=== PATIENT | male | born 1980 | race Caucasian/White ===

== ENCOUNTER 2019-02-17 22:10 | Inpatient (IN) | payer OTHER ==
[2019-02-17] MEDS ORDERED: PNEUMONIA PROTOCOL UTILIZED 1 EACH MISC PO PRN (22:39)
[2019-02-17] MEDS ORDERED: AZITHROMYCIN 500 MG in SODIUM CHLORIDE 0.9% 250 ML IVPB STA (22:39)
[2019-02-17] MEDS ORDERED: IPRATROPIUM-ALBUTEROL 3 ML NEB INHALATION STA ×2 (22:39→23:58)
[2019-02-17] MEDS ORDERED: SODIUM CHLORIDE 0.9% 1,000 ML IV STA ×2 (22:39)
--- NOTE | 2019-02-17 22:47 | ED ---
Alcohol HPI - General Chief Complaint: Shortness of Breath Stated Complaint: Altered Mental Status Time Seen by Provider: 02/17/19 22:14 Source: EMS, RN notes reviewed, old records reviewed Mode of arrival: EMS Limitations: altered mental status - History of Present Illness Initial Comments: This is a 30-year-old male the ER for evaluation in the hospital for pneumonia. Patient has severe alcohol takes oxygen, poor historian, except in transfer from [facility]. Patient accepted for alcohol intoxication. Poor historian secondary intoxication, history obtained from EMS and patients chart MD Complaint: alcohol intoxication, alcohol dependence Last Drink: unknown -: hour(s) Previous Visits for Alcohol Intoxication?: Yes Recent Trauma: Yes Treatments Prior to Arrival: none Chronic Alcohol Use: Yes - Related Data Home Medications Medication Instructions Recorded Confirmed Diazepam [Valium] 10 mg PO BID PRN 10/21/15 03/13/16 oxyCODONE HCL [oxyCODONE HCL (IR)] 30 mg PO Q6HR PRN 10/21/15 03/13/16 traMADol HCL [Ultram] 50 mg PO Q6HR PRN 10/21/15 03/13/16 Previous Rx's Medication Instructions Recorded Hydrocodone/Acetaminophen [[place] 1 each PO Q6HR PRN #20 tablet 10/21/15 10-325 Tablet] Divalproex [Depakote] 500 mg PO BID #20 tablet. 03/13/16 Hydrocodone/Acetaminophen [[place] 1 each PO Q6HR PRN #10 tab 03/13/16 5-325] Lisinopril 40 mg PO DAILY #20 tablet 03/13/16 levETIRAcetam [Keppra] 500 mg PO Q12HR #20 tab 03/13/16 Allergies Allergy/AdvReac Type Severity Reaction Status Date / Time codeine Allergy Unknown Verified 02/17/19 22:19 ketorolac tromethamine Allergy Itching Verified 02/17/19 22:19 [From Toradol] Review of Systems ROS Statement: Those systems with pertinent positive or pertinent negative responses have been documented in the HPI. ROS Other: All systems not noted in ROS Statement are negative. Past Medical History Past Medical History: Fibromyalgia, Hypertension, Seizure Disorder Additional Past Medical History / Comment(s): lupus, alcohol abuse History of Any Multi-Drug Resistant Organisms: None Reported Past Surgical History: No Surgical Hx Reported Past Psychological History: No Psychological Hx Reported Smoking Status: Current every day smoker Past Alcohol Use History: Abuse Past Drug Use History: None Reported General Exam Limitations: altered mental status General appearance: alert, appears intoxicated, lethargic Head exam: Present: atraumatic, normocephalic, normal inspection Eye exam: Present: normal appearance, PERRL, EOMI. Absent: scleral icterus, conjunctival injection, periorbital swelling ENT exam: Present: normal exam, mucous membranes moist Neck exam: Present: normal inspection. Absent: tenderness, meningismus, lymphadenopathy Respiratory exam: Present: decreased breath sounds, prolonged expiratory. Absent: respiratory distress, wheezes, rales, rhonchi, stridor Cardiovascular Exam: Present: normal rhythm, tachycardia, normal heart sounds. Absent: systolic murmur, diastolic murmur, rubs, gallop, clicks GI/Abdominal exam: Present: soft, normal bowel sounds. Absent: distended, tenderness, guarding, rebound, rigid Extremities exam: Present: normal inspection, full ROM, normal capillary refill. Absent: tenderness, pedal edema, joint swelling, calf tenderness Back exam: Present: normal inspection Neurological exam: Present: alert, oriented X3, CN II-XII intact Psychiatric exam: Present: normal affect, normal mood Skin exam: Present: warm, dry, intact, normal color. Absent: rash Course Vital Signs 02/17/19 22:13 Temperature 99.8 F H Pulse Rate 131 H Respiratory 14 Rate Blood Pressure 126/92 O2 Sat by Pulse 92 L Oximetry - Reevaluation(s) Reevaluation #1: 02/17/19 22:45 Record and transfer paperwork are reviewed Medical Decision Making - Medical Decision Making 38 male the ER for evaluation severe alcohol intoxication alcohol 520, patient also with pneumonia. Will admit for IV antibiotics, monitoring of electrolytes. - Radiology Data Radiology results: report reviewed (Chest x-ray reviewed showing positice pneumonia) Disposition Clinical Impression: Community acquired pneumonia, Alcohol intoxication, Hepatic encephalopathy Disposition: ADMITTED IP TO THIS HOSP Condition: Fair Is patient prescribed a controlled substance at d/c from ED?: No Referrals: None,Stated [Primary Care Provider] - 1-2 days
[2019-02-17] MEDS ORDERED: THIAMINE 100 MG/ML 2 ML VIAL IM STA (22:48)
[2019-02-17 23:13] LABS: Basophils % (A) 0 %; Eosinophils % (A) 0 %; HCT 36.1 % (39.0-53.0); HGB 11.7 gm/dL (13.0-17.5); Lymphocytes # (A) 0.6 k/uL (1.0-4.8); Lymphocytes % (A) 8 %; MCH 32.9 pg (25.0-35.0); MCHC 32.3 g/dL (31.0-37.0); MCV 101.8 fL (80.0-100.0); Macrocytosis Slight; Mean Platelet Volume 9.3; Monocytes # (A) 0.4 k/uL (0-1.0); Monocytes % (A) 5 %; Neutrophils # (A) 6.1 k/uL (1.3-7.7); Neutrophils % (A) 86 %; RBC 3.55 m/uL (4.30-5.90); RDW 15.4 % (11.5-15.5); WBC 7.2 k/uL (3.8-10.6)
[2019-02-17 23:21] LABS: INR 0.9 (<1.2); Prothrombin Time 9.7 sec (9.0-12.0)
[2019-02-17 23:27] LABS: Appearance,Urine Clear (Clear); Bilirubin,Urine 1+ (Negative); Blood,Urine Large (Negative); Color,Urine Yellow; Glucose,Urine (UA) Negative (Negative); Leukocyte Esterase,Urine Negative (Negative); Mucus,Urine Rare /hpf; Nitrite,Urine Negative (Negative); Protein,Urine 2+ (Negative); RBC,Urine 80 /hpf (0-5); Specific Gravity,Urine 1.018 (1.001-1.035)
[2019-02-17 23:30] LABS: Amphetamine Screen,Urine Not Detected (NotDetected); Barbiturate Screen,Urine Not Detected (NotDetected); Benzodiazepines Screen,Urine Not Detected (NotDetected); Cocaine Screen,Urine Not Detected (NotDetected); Ketones,Urine 3+ (Negative); Methadone Screen, Urine Not Detected (NotDetected); Opiate Screen,Urine Not Detected (NotDetected); Oxycodone Screen, Urine Not Detected (NotDetected); Phencyclidine Screen,Urine Not Detected (NotDetected); Tricyclic Antidepressant,Urine Not Detected (NotDetected); Urn Cannabinoid Scrn Not Detected (NotDetected)
[2019-02-17 23:31] LABS: Albumin 3.7 g/dL (3.5-5.0); Anion Gap 29 mmol/L; Blood Urea Nitrogen 11 mg/dL (9-20); Calcium 6.8 mg/dL (8.4-10.2); Carbon Dioxide 13 mmol/L (22-30); Chloride 109 mmol/L (98-107); Glucose 83 mg/dL (74-99); Lipase 676 U/L (23-300); Sodium 151 mmol/L (137-145); Total Bilirubin 4.3 mg/dL (0.2-1.3); Total Protein 6.2 g/dL (6.3-8.2)
[2019-02-17 23:41] LABS: AST 353 U/L (17-59); Alcohol 370 mg/dL; Magnesium 1.8 mg/dL (1.6-2.3); Phosphorus 3.9 mg/dL (2.5-4.5); Potassium 3.3 mmol/L (3.5-5.1)
[2019-02-17 23:42] LABS: ALT 119 U/L (21-72); Alkaline Phosphatase 145 U/L (38-126)
[2019-02-17] MEDS ORDERED: DEXTROSE 5%-0.45% NACL 1,000 ML IV ONE (23:50)
[2019-02-18 00:03] LABS: Platelet Count 64 k/uL (150-450)
[2019-02-18 00:25] LABS: ABG Base Excess -15.6 mmol/L; ABG HCO3 12 mmol/L (21-25); ABG Oxygen Saturation 92.3 % (94-97); ABG PCO2 28 mmHg (35-45); ABG PH 7.24 (7.35-7.45); ABG PO2 82 mmHg (83-108); ABG TCO2 13 mmol/L (19-24)
--- NOTE | 2019-02-18 00:45 | P.HPIM ---
History of Present Illness H&P Date: 02/18/19 The patient is a 38 yo M w/ a PMH of HTN, seizure disorder, and EtOH abuse who was transferred to the ED from [facility] for altered mentation and pneumonia. History obtained from EMR and transfer records since patient unable to provide history at this time. The patient was apparently brought to the ED at [facility] by his after she found him inebriated and with chest and facial trauma. At [facility], patient was noted to have pneumonia along with an alcohol level of 500+ and he was transferred to [place] ED. The patient was intoxicated during examination and unable to provide history. Upon admission to ED, he was tachycardic to 130 w/ SpO2 92-95% on NC 6L. He underwent an extensive evaluation w/ Hgb 11.7, Na 151, K 3.3, CO2 13, A-Gap 29, AST 353, w/ serum alcohol level 370. He is being admitted to the medicine service to the ICU for further management. Review of Systems ROS couldn't be performed since patient only mumbling few words and not following commands Past Medical History Past Medical History: Fibromyalgia, Hypertension, Seizure Disorder Additional Past Medical History / Comment(s): lupus, alcohol abuse History of Any Multi-Drug Resistant Organisms: None Reported Past Surgical History: No Surgical Hx Reported Past Psychological History: No Psychological Hx Reported Smoking Status: Current every day smoker Past Alcohol Use History: Abuse Past Drug Use History: None Reported Medications and Allergies Home Medications Medication Instructions Recorded Confirmed Type Diazepam [Valium] 10 mg PO BID PRN 10/21/15 03/13/16 History Hydrocodone/Acetaminophen [[place] 1 each PO Q6HR PRN #20 tablet 10/21/15 03/13/16 Rx 10-325 Tablet] oxyCODONE HCL [oxyCODONE HCL (IR)] 30 mg PO Q6HR PRN 10/21/15 03/13/16 History traMADol HCL [Ultram] 50 mg PO Q6HR PRN 10/21/15 03/13/16 History Divalproex [Depakote] 500 mg PO BID #20 tablet. 03/13/16 Rx Hydrocodone/Acetaminophen [[place] 1 each PO Q6HR PRN #10 tab 03/13/16 Rx 5-325] Lisinopril 40 mg PO DAILY #20 tablet 03/13/16 Rx levETIRAcetam [Keppra] 500 mg PO Q12HR #20 tab 03/13/16 Rx Allergies Allergy/AdvReac Type Severity Reaction Status Date / Time codeine Allergy Unknown Verified 02/17/19 22:19 ketorolac tromethamine Allergy Itching Verified 02/17/19 22:19 [From Toradol] Physical Exam Vitals: Vital Signs Temp Pulse Resp BP Pulse Ox 02/17/19 23:40 136/95 92 L 02/17/19 23:30 129/84 02/17/19 23:20 129/84 02/17/19 23:11 130 H 02/17/19 23:10 128/80 95 02/17/19 23:01 121 H 02/17/19 23:00 122 H 130/86 92 L 02/17/19 22:50 133 H 130/86 93 L 02/17/19 22:40 130 H 92 L 02/17/19 22:30 130 H 92 L 02/17/19 22:21 93 L 02/17/19 22:13 99.8 F H 131 H 14 126/92 92 L Intake and Output 02/17/19 02/17/19 02/18/19 14:59 22:59 06:59 Other: Weight 80 kg General: Disheveled M, acutely intoxicated, appears at stated age, overweight Derm: nasal bridge 2-3 cm abrasion w/ dry scab, bruising over anterior L chest 5 cm x 5 xm Head: atraumatic, normocephalic, symmetric Eyes: EOMI, no lid lag, slight scleral icterus, pupils equal round reactive to light ENT: No thrush, no pharyngeal erythema Neck: No thyromegaly, no cervical lymphadenopathy, trachea midline, supple Mouth: no lip lesion, mucus membranes moist, very poor dentition Cardiovascular: S1S2 reg, tachycardic, no murmur, positive posterior tibial pulse bilateral, no edema, capillary refill less than 2 seconds Lungs: Bilateral scattered coarse breath sounds, no rales, no accessory muscle use, on nasal canula Abdominal: soft, nontender to palpation, no guarding, no appreciable organomegaly, normal bowel sounds Ext: no gross muscle atrophy, grossly moving all extremities, unable to perform complete examination since patient not following commands Neuro: Unable to perform, moving all extremities, tracking w/ eye contact, not following commands, mumbles Results CBC & Chem 7: 02/17/19 22:16 02/17/19 22:16 Labs: Abnormal Lab Results - Last 24 Hours (Table) 02/17/19 02/17/19 02/17/19 Range/Units 22:16 22:16 22:16 RBC 3.55 L (4.30-5.90) m/uL Hgb 11.7 L (13.0-17.5) gm/dL Hct 36.1 L (39.0-53.0) % MCV 101.8 H (80.0-100.0) fL Plt Count 64 L (150-450) k/uL Lymphocytes # 0.6 L (1.0-4.8) k/uL Sodium 151 H (137-145) mmol/L Potassium 3.3 L (3.5-5.1) mmol/L Chloride 109 H (98-107) mmol/L Carbon Dioxide 13 L (22-30) mmol/L Creatinine 0.50 L (0.66-1.25) mg/dL Calcium 6.8 L (8.4-10.2) mg/dL Total Bilirubin 4.3 H (0.2-1.3) mg/dL AST 353 H (17-59) U/L ALT 119 H (21-72) U/L Alkaline Phosphatase 145 H (38-126) U/L Total Protein 6.2 L (6.3-8.2) g/dL Lipase 676 H (23-300) U/L Urine Protein 2+ H (Negative) Urine Ketones 3+ H (Negative) Urine Blood Large H (Negative) Urine Bilirubin 1+ H (Negative) Urine RBC 80 H (0-5) /hpf Urine Mucus Rare H (None) /hpf Serum Alcohol 370 H* mg/dL Assessment and Plan Plan: Metabolic encephalopathy due to acute alcohol intoxication -[facility] protocol -Neurochecks -Seizure, aspiration, fall precautions -Folate, Thiamine, MV Pneumonia, aspiration vs community acquired -Will c/w Ceftriaxone, Azithromycin along with Clindamycin for now High anion gap metabolic acidosis, due to alcohol intoxication; Abnormal LFTs -C/w IVFs -Monitor BMP and LFTs -Supportive measures -Obtain PT/INR to calculate [facility] for alcoholic hepatitis Lipase elevated, likely acute pancreatitis though patient unable to provide history and no radiological confirmation -IVFs -NPO for now -Monitor Lipase Hypokalemia and Hypocalcemia -Will replace and monitor Hypovolemic hypernatremia, likely due to poor oral intake -C/w IVFs -Monitor BMP DVT//GI prophylaxis -Lovenox -Protonix The patient is admitted with an anticipated greater than 2 midnight stay for evaluation of pneumonia, alcohol intoxication, alcoholic hepatitis, pancreatitis. CODE STATUS:Full Code Anticipated discharge date: 02/23/[address]: Home A total of 45 minutes was spent on the care of this complex patient more than 50% of the time was spent in counseling and care coordination.
[2019-02-18 00:59] LABS: Glucose,Whole Blood 100 mg/dL (75-99)
--- NOTE | 2019-02-18 01:08 | XR ---
History: ITS.REASON XR Reason: Pain Exam: XR CXR 1 VIEW Comparison: None available FINDINGS: Patchy airspace opacity with mid to lower zone predominance right lung and suggested retrocardiac left lower lobe. No pleural effusion identified. The cardiac and mediastinal contours appear within limits. The visualized osseous structures appear within limits. IMPRESSION: Patchy airspace opacity with mid to lower zone predominance right lung and suggested possible retrocardiac left lower lobe. May represent multifocal pneumonia, clinically correlate and follow to resolution.
[2019-02-18] MEDS: SODIUM CHLORIDE 0.9% 1,000 ML IV SCH ×2 (01:10→05:45)
[2019-02-18] MEDS: POTASSIUM CHLORIDE 10 MEQ in WATER FOR INJECTION 1 100ML.BAG IVPB SCH ×9 (01:54→18:12)
[2019-02-18] MEDS: LORazepam 2 MG/ML INJ IV PRN ×9 (01:54→15:53)
[2019-02-18] MEDS: THIAMINE 100 MG TAB PO SCH ×4 (01:55→16:05)
[2019-02-18] MEDS ORDERED: THIAMINE 100 MG/ML 2 ML VIAL IM STA (02:12)
[2019-02-18] MEDS ORDERED: NALOXONE 0.4 MG/ML 1 ML VIAL IV PRN (02:46)
[2019-02-18 05:48] LABS: Appearance,Urine Clear (Clear); Bilirubin,Urine 1+ (Negative); Blood,Urine Large (Negative); Color,Urine Yellow; Glucose,Urine (UA) Negative (Negative); Hyaline Casts,Urine 2 /lpf (0-2); Ketones,Urine 3+ (Negative); Leukocyte Esterase,Urine Negative (Negative); Mucus,Urine Rare /hpf; Nitrite,Urine Negative (Negative); Protein,Urine 2+ (Negative); RBC,Urine >182 /hpf (0-5); Specific Gravity,Urine 1.017 (1.001-1.035); Urobilinogen,Urine <2.0 mg/dL (<2.0)
[2019-02-18 06:11] LABS: Glucose,Whole Blood 120 mg/dL (75-99)
[2019-02-18 07:09] LABS: HCT 33.9 % (39.0-53.0); HGB 10.7 gm/dL (13.0-17.5); Hypochromasia Moderate; MCH 33.7 pg (25.0-35.0); MCHC 31.6 g/dL (31.0-37.0); MCV 106.7 fL (80.0-100.0); Macrocytosis Moderate; Mean Platelet Volume 8.7; RBC 3.18 m/uL (4.30-5.90); RDW 15.2 % (11.5-15.5)
[2019-02-18 07:11] LABS: Platelet Count 60 k/uL (150-450)
[2019-02-18 07:13] LABS: INR 0.8 (<1.2); Prothrombin Time 9.3 sec (9.0-12.0)
[2019-02-18 07:18] LABS: ALT 133 U/L (21-72); AST 377 U/L (17-59); Albumin 3.4 g/dL (3.5-5.0); Alkaline Phosphatase 129 U/L (38-126); Anion Gap 26 mmol/L; Blood Urea Nitrogen 8 mg/dL (9-20); Chloride 117 mmol/L (98-107); Glucose 113 mg/dL (74-99); Magnesium 1.7 mg/dL (1.6-2.3); Phosphorus 2.1 mg/dL (2.5-4.5); Potassium 3.6 mmol/L (3.5-5.1); Sodium 152 mmol/L (137-145); Total Bilirubin 5.3 mg/dL (0.2-1.3); Total Protein 5.8 g/dL (6.3-8.2)
--- NOTE | 2019-02-18 07:26 | XR ---
EXAMINATION TYPE: XR chest 1V DATE OF EXAM: 02/18/2019 COMPARISON: 02/18/2019 HISTORY: 38-year-old male with shortness of breath TECHNIQUE: Single frontal view of the chest is obtained. FINDINGS: Heart normal size. Aorta within normal limits. Multifocal opacities in the right side of the lung per sist and possibly some subtle retrocardiac density. No sizable effusion. IMPRESSION: Multifocal airspace disease particularly on the right persists. Pneumonia, aspiration, and vasculitis are some differential considerations.
[2019-02-18 07:35] LABS: Carbon Dioxide 9 mmol/L (22-30)
[2019-02-18 07:36] LABS: Calcium 6.5 mg/dL (8.4-10.2)
[2019-02-18] MEDS ORDERED: SODIUM BICARB 8.4% 50 ML SYR (1 MEQ/ML) IV STA ×2 (08:20→09:19)
[2019-02-18] MEDS: DEXTROSE 5% IN WATER 1,000 ML IV ONE ×2 (08:21→17:55)
[2019-02-18] MEDS: PANTOPRAZOLE 40 MG TABLET PO SCH (08:21)
[2019-02-18] MEDS ORDERED: MAGNESIUM SULFATE-D5W PMX 1 GM in DEXTROSE/WATER 1 100ML.BAG IVPB ONE (08:30)
[2019-02-18] MEDS: ENOXAPARIN 40 MG/0.4 ML SYRINGE SQ SCH (08:32)
[2019-02-18] MEDS ORDERED: CALCIUM GLUCONATE 1 GM in SODIUM CHLORIDE 0.9% 100 ML IVPB ONE (09:00)
[2019-02-18] MEDS ORDERED: AZITHROMYCIN 500 MG TAB PO SCH (09:00)
[2019-02-18] MEDS ORDERED: Potassium Replacement Protocol 1 EACH MISC MISCELLANE PRN ×2 (09:23→13:07)
[2019-02-18] MEDS: DEXTROSE 5% IN WATER 1,000 ML with SODIUM BICARB (1 MEQ/ML) 150 ML IV SCH (09:39)
[2019-02-18] MEDS: LEVOFLOXACIN 500MG-D5W PMX 500 MG in DEXTROSE/WATER 1 100ML.BAG IVPB SCH (10:33)
[2019-02-18] MEDS: PIPERACILLIN-TAZOBACTAM 3.375 GM in SODIUM CHLORIDE 0.9% 100 ML IVPB SCH ×2 (10:34→17:55)
[2019-02-18] MEDS: IPRATROPIUM-ALBUTEROL 3 ML NEB INHALATION PRN ×3 (11:09→19:06)
--- NOTE | 2019-02-18 11:23 | P.CNPUL ---
History of Present Illness Consult date: 02/18/19 Requesting physician: Didi Begum Reason for consult: pneumonia Chief complaint: altered mental status, pneumonia, alcohol intoxication History of present illness: this is a 38-year-old white male with history of alcohol abuse, seizure disorder, chronic pain syndrome, transferred last night from [facility] were in he presented with acute alcohol intoxication and extensive pneumonia involving the right lung. Patient was brought into the ER, and he was noted to have significant abnormalities including significant infiltrate involving the right lung,abnormal electrolytes with hypernatremia, hypokalemia, anion gap metabolic acidosis,significantly elevated alcohol level,elevated liver enzymes, elevated lipase of 676, hematuria,and negative drug screen except for elevated alcohol of 370.the patient himself is a very poor historian, not much information could be obtained from him, and there is no family member available. Patient was admitted to the ICU, placed on antibiotics which I have changed this morning to Levaquin and Zosyn. I'm more concerned about the possibility of aspiration pneumonia. Patient is now on the CIWA protocol for alcohol withdrawal.he is also on sodium bicarb drip, which I will likely discontinue once I have a repeat basic metabolic profile this afternoon. His ABG on admission showeda pO2 of 82 pCO2 of 28 pH of 7.24, I wasn't notified about this ABG until early this morning around 8 AM.patient was evaluated in the ICU this morning, reviewed her chest x-ray, reviewed his labs, recommended switching the patient to Levaquin and Zosyn, recommended a sodium bicarb drip, recommended changing his IV fluids to D5W, and the patient will also receive the sodium bicarb drip. Patient is presently on the CIWA protocol, and he is also on thiamine. Review of Systems ROS unobtainable: due to mental status Past Medical History Past Medical History: Fibromyalgia, Hypertension, Seizure Disorder Additional Past Medical History / Comment(s): lupus, alcohol abuse History of Any Multi-Drug Resistant Organisms: None Reported Past Surgical History: No Surgical Hx Reported Smoking Status: Current every day smoker Medications and Allergies Home Medications Medication Instructions Recorded Confirmed Type Diazepam [Valium] 10 mg PO BID PRN 10/21/15 03/13/16 History Hydrocodone/Acetaminophen [[place] 1 each PO Q6HR PRN #20 tablet 10/21/15 03/13/16 Rx 10-325 Tablet] oxyCODONE HCL [oxyCODONE HCL (IR)] 30 mg PO Q6HR PRN 10/21/15 03/13/16 History traMADol HCL [Ultram] 50 mg PO Q6HR PRN 10/21/15 03/13/16 History Divalproex [Depakote] 500 mg PO BID #20 tablet. 03/13/16 Rx Hydrocodone/Acetaminophen [[place] 1 each PO Q6HR PRN #10 tab 03/13/16 Rx 5-325] Lisinopril 40 mg PO DAILY #20 tablet 03/13/16 Rx levETIRAcetam [Keppra] 500 mg PO Q12HR #20 tab 03/13/16 Rx Allergies Allergy/AdvReac Type Severity Reaction Status Date / Time codeine Allergy Unknown Verified 02/17/19 22:19 ketorolac tromethamine Allergy Itching Verified 02/17/19 22:19 [From Toradol] Physical Exam Vitals: Vital Signs Temp Pulse Pulse Pulse Resp BP Pulse Ox 02/18/19 10:30 129 H 31 H 140/119 95 02/18/19 10:00 130 H 27 H 151/103 94 L 02/18/19 09:30 134 H 30 H 152/103 93 L 02/18/19 09:00 135 H 34 H 142/110 95 02/18/19 08:30 39 H 144/96 95 02/18/19 08:00 99.1 F 31 H 133/91 90 L 02/18/19 07:30 128 H 32 H 139/92 89 L 02/18/19 07:00 131 H 26 H 136/88 93 L 02/18/19 06:30 126 H 28 H 128/96 34 L 02/18/19 06:00 138 H 27 H 131/86 92 L 02/18/19 05:30 124 H 19 139/102 94 L 02/18/19 05:00 124 H 26 H 141/90 93 L 02/18/19 04:30 128 H 30 H 136/90 93 L 02/18/19 04:00 98.8 F 132 H 27 H 137/91 93 L 02/18/19 03:30 133 H 30 H 140/92 93 L 02/18/19 03:00 125 H 28 H 141/90 94 L 02/18/19 02:30 131 H 32 H 144/93 93 L 02/18/19 02:00 128 H 28 H 133/90 92 L 02/18/19 01:30 131 H 27 H 124/78 92 L 02/18/19 01:15 99.1 F 128 H 128 H 16 02/18/19 01:00 99.1 F 124 H 30 H 123/81 91 L 02/18/19 00:30 99.7 F H 117 H 118/82 90 L 02/18/19 00:20 124 H 118/82 91 L 02/18/19 00:10 134 H 32 H 123/50 91 L 02/18/19 00:00 130/83 96 02/17/19 23:50 133 H 130/83 02/17/19 23:45 133 H 136/95 95 02/17/19 23:40 136/95 92 L 02/17/19 23:30 129/84 02/17/19 23:20 129/84 02/17/19 23:11 130 H 02/17/19 23:10 128/80 95 02/17/19 23:01 121 H 02/17/19 23:00 122 H 130/86 92 L 02/17/19 22:50 133 H 130/86 93 L 02/17/19 22:40 130 H 92 L 02/17/19 22:30 130 H 92 L 02/17/19 22:21 93 L 02/17/19 22:13 99.8 F H 131 H 14 126/92 92 L Intake and Output 02/17/19 02/18/19 02/18/19 22:59 06:59 14:59 Intake Total 3750 1175 Output Total 1335 940 Balance 2415 235 Intake: IV 1650 300 Azithromycin 500 mg In 250 Sodium Chloride 0.9% 250 ml @ 250 mls/hr IVPB ONCE STA Rx#:[id number] Dextrose 5%-0.45% NaCl 1, 200 000 ml @ 100 mls/hr IV . Q10H ONE Rx#:[id number] Potassium Chloride 10 meq 300 100 In Water For Injection 1 100ml.bag @ 100 mls/hr IVPB Q1H [facility]REA Rx#: [id number] Sodium Chloride 0.9% 1, 1100 000 ml @ 200 mls/hr IV . Q5H ANDREA Rx#:[id number] Amount of Fluid Infused ( 2000 ml) Intake, IV Titration 875 Amount Calcium Gluconate 1 gm In 100 Sodium Chloride 0.9% 100 ml @ 100 mls/hr IVPB ONCE ONE Rx#:[id number] Dextrose 5% in Water 1, 300 000 ml @ 100 mls/hr IV . Q10H ONE Rx#:[id number] Dextrose 5% in Water 1, 75 000 ml @ 75 mls/hr IV . [id number] ANDREA with Sodium Bicarb (1 Meq/ml) 150 ml Rx#:[id number] Levofloxacin 500Mg-D5w 100 Pmx 500 mg In Dextrose/ Water 1 100ml.bag @ 100 mls/hr IVPB Q24H [facility] Rx#: [id number] Magnesium Sulfate-D5w Pmx 100 1 gm In Dextrose/Water 1 100ml.bag @ 100 mls/hr IVPB ONCE ONE Rx#: [id number] Piperacillin-Tazobactam 3 100 .375 gm In Sodium Chloride 0.9% 100 ml @ 25 mls/hr IVPB Q8H [facility] Rx#: [id number] Potassium Chloride 10 meq 100 In Water For Injection 1 100ml.bag @ 100 mls/hr IVPB Q1H [facility] Rx#: [id number] Oral 100 Output: Urine 1335 940 Other: Voiding Method Indwelling Catheter Weight 80 kg General:revealed a 58-year-old white male, anxious, slightly agitated, tremulous, not in respiratory distress maintain on 6 L nasal cannula. Head: atraumatic, normocephalic,abrasion on the nasal bridge as noted. HEENT: PERRLA, EOMI, slight icterus is noted. No neck masses, no JVD, no stridor. Moist mucous membranes. No evidence of lid lag Neck: supple, no neck masses, no JVD. Mouth: moist mucous membranes, poor dentition. Cardiovascular: normal S1 and S2, no S3 gallop, no murmur. Lungs: rhonchi and crackles noted bilaterally more so on the right side. Symmetrical chest expansion, no chest wall retraction. Abdominal: ssoft nontender no megaly no rebound no guarding. Positive bowel jory nds. Ext: no limitation in range of motion, no deformities. Neuro: moves all extremities, does not follow instructions, anxious and tremulous. Hence Ativan was given. Skin: Superficial abrasion noted on the nasal bridge, bruising over the anterior chest wall is also noted. Results - Laboratory Findings CBC and BMP: 02/18/19 05:59 02/18/19 05:59 ABG ABG pH 7.24 (7.35-7.45) L 02/18/19 00:22 ABG pCO2 28 mmHg (35-45) L 02/18/19 00:22 ABG pO2 82 mmHg (83-108) L 02/18/19 00:22 ABG O2 Saturation 92.3 % (94-97) L 02/18/19 00:22 PT/INR, D-dimer PT 9.3 sec (9.0-12.0) 02/18/19 05:59 INR 0.8 (<1.2) 02/18/19 05:59 Abnormal lab findings: Abnormal Labs 02/17/19 02/17/19 02/17/19 22:16 22:16 22:16 RBC 3.55 L Hgb 11.7 L Hct 36.1 L MCV 101.8 H Plt Count 64 L Lymphocytes # 0.6 L ABG pH ABG pCO2 ABG pO2 ABG HCO3 ABG Total CO2 ABG O2 Saturation Sodium 151 H Potassium 3.3 L Chloride 109 H Carbon Dioxide 13 L BUN Creatinine 0.50 L Glucose POC Glucose (mg/dL) Calcium 6.8 L Phosphorus Total Bilirubin 4.3 H AST 353 H ALT 119 H Alkaline Phosphatase 145 H Total Protein 6.2 L Albumin Lipase 676 H Urine Protein 2+ H Urine Ketones 3+ H Urine Blood Large H Urine Bilirubin 1+ H Urine RBC 80 H Urine WBC Urine Mucus Rare H Serum Alcohol 370 H* 02/18/19 02/18/19 02/18/19 00:22 00:58 04:50 RBC Hgb Hct MCV Plt Count Lymphocytes # ABG pH 7.24 L ABG pCO2 28 L ABG pO2 82 L ABG HCO3 12 L ABG Total CO2 13 L ABG O2 Saturation 92.3 L Sodium Potassium Chloride Carbon Dioxide BUN Creatinine Glucose POC Glucose (mg/dL) 100 H Calcium Phosphorus Total Bilirubin AST ALT Alkaline Phosphatase Total Protein Albumin Lipase Urine Protein 2+ H Urine Ketones 3+ H Urine Blood Large H Urine Bilirubin 1+ H Urine RBC >182 H Urine WBC 20 H Urine Mucus Rare H Serum Alcohol 02/18/19 02/18/19 02/18/19 05:59 05:59 06:09 RBC 3.18 L Hgb 10.7 L Hct 33.9 L MCV 106.7 H Plt Count 60 L Lymphocytes # ABG pH ABG pCO2 ABG pO2 ABG HCO3 ABG Total CO2 ABG O2 Saturation Sodium 152 H Potassium Chloride 117 H Carbon Dioxide 9 L* BUN 8 L Creatinine 0.60 L Glucose 113 H POC Glucose (mg/dL) 120 H Calcium 6.5 L Phosphorus 2.1 L Total Bilirubin 5.3 H AST 377 H ALT 133 H Alkaline Phosphatase 129 H Total Protein 5.8 L Albumin 3.4 L Lipase Urine Protein Urine Ketones Urine Blood Urine Bilirubin Urine RBC Urine WBC Urine Mucus Serum Alcohol - Diagnostic Findings Chest x-ray: image reviewed (multifocal airspace disease specialist in the right lung highly suggestive of aspiration pneumonia.) Assessment and Plan Assessment: impression: 1 acute aspiration pneumonia is highly suspected. 2 acute alcohol intoxication 3 acute metabolic encephalopathy and alcohol intoxication. 4anion gap metabolic acidosis secondary to alcohol intoxication, possible sepsis 5 acute pancreatitis with elevated lipase 6 acute alcohol induced hepatitis 7 acute electrolyte imbalance including hypernatremia, hypokalemia, hypophosphatemia, hypomagnesemia. Hypocalcemia. 8 possible sepsis secondary to pneumonia. 9History of alcoholism 10 history of seizure disorder. Recommendation: Change antibiotics to Levaquin and Zosyn to cover for aspiration pneumonia which is the most likely type of pneumonia at this point considering his clinical presentation. Changed his IV fluid to D5W and also started the patient on a bicarb drip, however I have a feeling it will improve significantly especially in his acidosis is related to seizure activity prior to presentation. Patient will be placed back on his seizure medications, continue CIWA protocol for alcohol withdrawal,address the issue of his electrolytes accordingly. Continue seizure precautions. Prognosis is definitely guarded, may require intubation and mechanical ventilation if his condition gets any worse. Will fol low closely in the ICU. Time with Patient: Greater than 30
[2019-02-18 12:13] LABS: Band Neutrophils % 14 %; Lymphocytes # (M) 0.42 k/uL (1.0-4.8); Metamyelocytes # (M) 0.05 k/uL (0); Metamyelocytes % 1 %; Monocytes # (M) 0.47 k/uL (0-1.0); Neutrophils % (M) 70 %; Nucleated Red Blood Cells 2 /100 WBC (0-0); Total Cells Counted 200; WBC 5.2 k/uL (3.8-10.6)
[2019-02-18 12:14] LABS: Poikilocytosis (M) Present
[2019-02-18 12:17] LABS: Anion Gap 26 mmol/L; Blood Urea Nitrogen 6 mg/dL (9-20); Calcium 7.2 mg/dL (8.4-10.2); Carbon Dioxide 10 mmol/L (22-30); Chloride 116 mmol/L (98-107); Glucose 205 mg/dL (74-99); Potassium 3.2 mmol/L (3.5-5.1); Sodium 152 mmol/L (137-145)
--- NOTE | 2019-02-18 13:00 | P.PN ---
Progress Note - Text Progress Note Date: 02/18/19 Please refer to H&P for full note. Patient was seen around 12:30 PM. Patient is unable to provide any history at this time. Patient tachycardic to the 140s. BP elevated, most recently 140/119. Patient is tachypneic with a respiratory rate of 31. He is saturating mid 90s on 6 L NC. Aspiration pneumonia Acute metabolic encephalopathy from alcohol intoxication Anion gap metabolic acidosis likely from starvation ketoacidosis and alcohol use Hypernatremia, hypokalemia, hyperchloremia Macrocytic anemia Transaminitis Elevated lipase History of seizure disorder Initially started on ceftriaxone and azithromycin for concerns of community- acquired pneumonia. Switched by pulmonology to levofloxacin and Zosyn IV for coverage and aspiration pneumonia. Continue DuoNeb as needed for shortness of breath and wheezing. Aspiration precautions. Elevate head of bed. Follow chest x-ray in the morning. Follow sputum culture. Follow blood culture. Maintain O2 saturation greater than 92%. Follow pulmonology consult. Blood alcohol level 370 on admission. CIWA protocol. Ativan IV as needed. Seizure and fall precautions. Keep nothing by mouth. Initially placed on normal saline which was just switched to D5 W along with bicarbonate drip by pulmonology. Daily BMP. Management as above to correct anion gap metabolic acidosis. Hemoglobin 10.7 with MCV 106.7. Likely secondary to alcohol abuse. Daily CBC. Total bilirubin 5.3, AST 377, LT 133, alkaline phosphatase 129. Likely liver damage secondary to alcohol abuse. Daily CMP. Lipase 676. Possibly acute pancreatitis. Patient unable to provide history. Continue IVF. Keep nothing by mouth for now. Adequate pain control. Follow lipase in the morning. On Depakote and Keppra at home as per [employer]. Will wait for medication reconciliation in order to restart. Ativan as needed for seizures. Seizure and fall precautions with advanced neurochecks.
[2019-02-18] MEDS ORDERED: SUCCINYLCHOLINE CHLORIDE VIAL 200 MG/10 ML VIAL IV ONE (16:33)
[2019-02-18] MEDS ORDERED: MIDAZOLAM 1 MG/ML 5 ML VIAL ONE (16:33)
[2019-02-18] MEDS ORDERED: PROPOFOL 10 MG/ML 20 ML VIAL IV ONE (16:33)
--- NOTE | 2019-02-18 16:51 | XR ---
EXAMINATION TYPE: XR chest 1V portable DATE OF EXAM: 02/18/2019 Comparison: Earlier today Clinical History: 38-year-old male intubated Findings: The heart is normal size. Aorta within normal limits. No sizable effusion. ET tube is satisfactory. P atchy airspace opacities persist throughout the right side of the lung. Impression: Satisfactory ET tube. Persistent patchy airspace disease throughout the right lung.
[2019-02-18 17:17] LABS: ABG Base Excess -7.5 mmol/L; ABG HCO3 18 mmol/L (21-25); ABG PCO2 34 mmHg (35-45); ABG PH 7.34 (7.35-7.45); ABG PO2 239 mmHg (83-108); ABG TCO2 19 mmol/L (19-24)
[2019-02-18] MEDS: PROPOFOL 1,000 MG in EMPTY BAG 1 BAG IV SCH ×2 (18:11→23:00)
[2019-02-18] MEDS ORDERED: ACETAMINOPHEN IV (For NPO) 1,000 MG in EMPTY BAG 1 BAG IVPB ONE (19:45)
[2019-02-18 19:56] LABS: Anion Gap 10 mmol/L; Blood Urea Nitrogen 6 mg/dL (9-20); Calcium 7.3 mg/dL (8.4-10.2); Carbon Dioxide 24 mmol/L (22-30); Chloride 114 mmol/L (98-107); Glucose 204 mg/dL (74-99); Sodium 148 mmol/L (137-145)
[2019-02-18 23:41] LABS: Glucose,Whole Blood 261 mg/dL (75-99)
[2019-02-19] MEDS: PIPERACILLIN-TAZOBACTAM 3.375 GM in SODIUM CHLORIDE 0.9% 100 ML IVPB SCH ×3 (01:14→17:09)
[2019-02-19] MEDS: DEXTROSE 5% IN WATER 1,000 ML with SODIUM BICARB (1 MEQ/ML) 150 ML IV SCH (01:15)
[2019-02-19] MEDS: LORazepam 2 MG/ML INJ IV PRN ×5 (01:36→22:57)
[2019-02-19] MEDS: PROPOFOL 1,000 MG in EMPTY BAG 1 BAG IV SCH ×8 (01:43→22:55)
[2019-02-19] MEDS ORDERED: INSULIN ASPART (NovoLOG) 100 UNIT/ML VIAL SQ SCH (03:30)
[2019-02-19] MEDS ORDERED: ACETAMINOPHEN IV (For NPO) 1,000 MG in EMPTY BAG 1 BAG IVPB ONE (03:30)
[2019-02-19 06:02] LABS: ALT 111 U/L (21-72); AST 282 U/L (17-59); Albumin 2.9 g/dL (3.5-5.0); Alkaline Phosphatase 134 U/L (38-126); Anion Gap 9 mmol/L; Blood Urea Nitrogen 7 mg/dL (9-20); Calcium 7.5 mg/dL (8.4-10.2); Carbon Dioxide 29 mmol/L (22-30); Chloride 106 mmol/L (98-107); Glucose 244 mg/dL (74-99); Magnesium 1.5 mg/dL (1.6-2.3); Sodium 144 mmol/L (137-145); Total Bilirubin 5.4 mg/dL (0.2-1.3); Total Protein 5.3 g/dL (6.3-8.2)
[2019-02-19 06:04] LABS: Glucose,Whole Blood 252 mg/dL (75-99)
[2019-02-19 06:19] LABS: Potassium 2.2 mmol/L (3.5-5.1)
[2019-02-19 06:20] LABS: Phosphorus <0.5 mg/dL (2.5-4.5)
[2019-02-19] MEDS ORDERED: Potassium Replacement Protocol 1 EACH MISC MISCELLANE PRN (06:20)
[2019-02-19] MEDS ORDERED: Phosphorus Replacement Protoco 1 EACH MISC MISCELLANE PRN (06:20)
[2019-02-19 06:27] LABS: Basophils % (A) 1 %; Eosinophils % (A) 1 %; HCT 27.3 % (39.0-53.0); HGB 9.3 gm/dL (13.0-17.5); Lymphocytes # (A) 0.8 k/uL (1.0-4.8); Lymphocytes % (A) 17 %; MCHC 34.1 g/dL (31.0-37.0); Macrocytosis Slight; Mean Platelet Volume 9.2; Monocytes # (A) 0.3 k/uL (0-1.0); Monocytes % (A) 6 %; Neutrophils # (A) 3.5 k/uL (1.3-7.7); Neutrophils % (A) 74 %; RBC 2.73 m/uL (4.30-5.90); RDW 15.8 % (11.5-15.5); WBC 4.8 k/uL (3.8-10.6)
[2019-02-19 06:38] LABS: MCV 99.9 fL (80.0-100.0); Platelet Count 46 k/uL (150-450)
[2019-02-19] MEDS: POTASSIUM PHOSPHATE 10 MMOL in SODIUM CHLORIDE 0.9% 250 ML IV SCH ×3 (06:52→17:07)
[2019-02-19] MEDS: POTASSIUM BICARBONATE/CIT AC 20 MEQ TABLET.EFF NG-TUBE SCH (06:54)
[2019-02-19] MEDS: INSULIN ASPART (NovoLOG) 100 UNIT/ML VIAL SQ SCH ×3 (06:56→18:10)
--- NOTE | 2019-02-19 07:21 | XR ---
EXAMINATION TYPE: XR chest 1V DATE OF EXAM: 02/19/2019 COMPARISON: 02/18/2019 HISTORY: Chest pain TECHNIQUE: Single frontal view of the chest is obtained. FINDINGS: Endotracheal tube and NG tube remain unchanged. Infiltrate throughout the right lung is stable. Stable cardiomediastinal silhouette. Left lung is clear. IMPRESSION: 1. Stable infiltrate throughout the right lung.
[2019-02-19 07:23] LABS: ABG Base Excess 9.9 mmol/L; ABG HCO3 32 mmol/L (21-25); ABG Oxygen Saturation 99.7 % (94-97); ABG PCO2 36 mmHg (35-45); ABG PO2 160 mmHg (83-108); ABG TCO2 33 mmol/L (19-24)
[2019-02-19] MEDS: IPRATROPIUM-ALBUTEROL 3 ML NEB INHALATION PRN ×3 (07:29→19:03)
[2019-02-19] MEDS: CHLORHEXIDINE GLUCONATE 15 ML CUP MUCOUS MEM SCH ×2 (09:25→20:31)
[2019-02-19] MEDS: POTASSIUM CHLORIDE 10 MEQ in WATER FOR INJECTION 1 100ML.BAG IVPB SCH ×5 (09:25→22:56)
[2019-02-19] MEDS: PANTOPRAZOLE 40 MG/10 ML VIAL IVP SCH (09:25)
[2019-02-19] MEDS: ENOXAPARIN 40 MG/0.4 ML SYRINGE SQ SCH (09:25)
[2019-02-19] MEDS: LEVOFLOXACIN 500MG-D5W PMX 500 MG in DEXTROSE/WATER 1 100ML.BAG IVPB SCH (09:26)
--- NOTE | 2019-02-19 11:53 | P.PN ---
Subjective Progress Note Date: 02/19/19 Principal diagnosis: acute alcohol intoxication, extensive right-sided pneumonia, aspiration pneumonia, seizure disorder, hypoxic respiratory failure this is a 38-year-old white male with history of alcohol abuse, seizure disorder, chronic pain syndrome, transferred last night from [facility] were in he presented with acute alcohol intoxication and extensive pneumonia i nvolving the right lung. Patient was brought into the ER, and he was noted to have significant abnormalities including significant infiltrate involving the right lung,abnormal electrolytes with hypernatremia, hypokalemia, anion gap metabolic acidosis,significantly elevated alcohol level,elevated liver enzymes, elevated lipase of 676, hematuria,and negative drug screen except for elevated alcohol of 370.the patient himself is a very poor historian, not much information could be obtained from him, and there is no family member available. Patient was admitted to the ICU, placed on antibiotics which I have changed this morning to Levaquin and Zosyn. I'm more concerned about the possibility of aspiration pneumonia. Patient is now on the CIWA protocol for alcohol withdrawal.he is also on sodium bicarb drip, which I will likely discontinue once I have a repeat basic metabolic profile this afternoon. His ABG on admission showeda pO2 of 82 pCO2 of 28 pH of 7.24, I wasn't notified about this ABG until early this morning around 8 AM.patient was evaluated in the ICU this morning, reviewed her chest x-ray, reviewed his labs, recommended switching the patient to Levaquin and Zosyn, recommended a sodium bicarb drip, recommended changing his IV fluids to D5W, and the patient will also receive the sodium bicarb drip. Patient is presently on the CIWA protocol, and he is also on thiamine. Patient was reevaluated today on 02/19/2019, a few hours after I rounded on the patient yesterday, his clinical status deteriorated, patient became more agitated requiring more sedation, and his O2 saturation was drifting down, hence patient was intubated placed on mechanical ventilation, and remains on mechanical ventilation today. His ventilator settings are assist control rate of 12 tidal volume of 450 FiO2 of 40% and PEEP is 5.ABG this morning showed a pO2 of 160 pCO2 of 36 pH of 7.56. Hence the FiO2 was cut down from 50% to 40%. His chest x-ray continues to show extensive infiltrate in the right lung, patient remains on antibiotics for presumptive aspiration pneumonia. His acidosis corrected nicely hence I have discontinued the sodium bicarb. However the patient has hypokalemia, hypophosphatemia. Both are being corrected as per protocol. Liver enzymes are trending down, total bilirubin remains elevated at 5.4.patient is on 70 mcg/kg/m of propofol, he is hemodynamically stable not requiring any pressors, remains on GI and DVT prophylaxis, remains on thiamine. Enteral feeding will be started today to support the patient nutritional status. Objective - Vital Signs Vital signs: Vital Signs Temp 102 F H 02/19/19 08:30 Pulse 106 H 02/19/19 11:21 Resp 22 02/19/19 10:30 BP 117/78 02/19/19 10:30 Pulse Ox 95 02/19/19 10:30 Intake & Output 02/18/19 02/19/19 02/19/19 18:59 06:59 18:59 Intake Total 2800 2845.0 114.47 Output Total 1827 380 Balance 973 2465.0 114.47 Weight 71.4 kg 80 kg Intake: IV 500 2225 ACETAMINOPHEN IV (For NPO 200 ) 1,000 mg In Empty Bag 1 bag @ 400 mls/hr IVPB ONCE ONE Rx#:[id number] Dextrose 5% in Water 1, 1100 000 ml @ 100 mls/hr IV . Q10H ONE Rx#:[id number] Dextrose 5% in Water 1, 825 000 ml @ 25 mls/hr IV . Q24H ANDREA with Sodium Bicarb (1 Meq/ml) 150 ml Rx#:[id number] Dextrose 5%-0.45% NaCl 1, 200 000 ml @ 100 mls/hr IV . Q10H ONE Rx#:[id number] Potassium Chloride 10 meq 300 100 In Water For Injection 1 100ml.bag @ 100 mls/hr IVPB Q1H ANDREA Rx#: [id number] Intake, IV Titration 2200 620.0 114.47 Amount Calcium Gluconate 1 gm In 100 Sodium Chloride 0.9% 100 ml @ 100 mls/hr IVPB ONCE ONE Rx#:[id number] Dextrose 5% in Water 1, 1000 100 000 ml @ 100 mls/hr IV . Q10H ONE Rx#:[id number] Dextrose 5% in Water 1, 600 75 000 ml @ 25 mls/hr IV . Q24H ANDREA with Sodium Bicarb (1 Meq/ml) 150 ml Rx#:[id number] Levofloxacin 500Mg-D5w 100 Pmx 500 mg In Dextrose/ Water 1 100ml.bag @ 100 mls/hr IVPB Q24H [facility] Rx#: [id number] Magnesium Sulfate-D5w Pmx 100 1 gm In Dextrose/Water 1 100ml.bag @ 100 mls/hr IVPB ONCE ONE Rx#: [id number] Piperacillin-Tazobactam 3 100 100 .375 gm In Sodium Chloride 0.9% 100 ml @ 25 mls/hr IVPB Q8H [facility] Rx#: [id number] Potassium Chloride 10 meq 100 In Water For Injection 1 100ml.bag @ 100 mls/hr IVPB Q1H [facility] Rx#: [id number] Potassium Chloride 10 meq 100 In Water For Injection 1 100ml.bag @ 100 mls/hr IVPB Q1HR [facility] Rx#: [id number] Propofol 1,000 mg In 345.0 114.47 Empty Bag 1 bag @ Titrate IV .Q0M [facility] Rx#: [id number] Lipid 100 Potassium Chloride 10 meq 100 In Water For Injection 1 100ml.bag @ 100 mls/hr IVPB Q1H [facility] Rx#: [id number] Output: Urine 1827 380 Other: Voiding Method Indwelling Catheter Indwelling Catheter - Exam General:revealed a 58-year-old white male, sedated, on propofol, on mechanical ventilation. Head: atraumatic, normocephalic,abrasion on the nasal bridge as noted. HEENT: PERRLA, EOMI, positive icterus is noted. No neck masses, no JVD, no stridor. Moist mucous membranes. endotracheal tube and orogastric tube are intact. Neck: supple, no neck masses, no JVD. Mouth: moist mucous membranes, poor dentition. Cardiovascular: normal S1 and S2, no S3 gallop, no murmur. Lungs: crackles and rhonchi noted mostly on the right side, left side is relatively clear.. Abdominal: soft nontender no megaly no rebound no guarding. Positive bowel sounds. Ext: no limitation in range of motion, no deformities. Neuro: cannot be assessed today, patient is fully sedated on propofol. Skin: Superficial abrasion noted on the nasal bridge, bruising over the anterior chest wall is also noted. psychiatric: Could not be assessed, patient is on propofol drip. Lymphatics: No lymphadenopathy. - Labs CBC & Chem 7: 02/19/19 05:14 02/19/19 05:20 Labs: Abnormal Lab Results - Last 24 Hours (Table) 02/18/19 02/18/19 02/18/19 Range/Units 05:59 11:27 17:13 RBC 3.18 L (4.30-5.90) m/uL Hgb 10.7 L (13.0-17.5) gm/dL Hct 33.9 L (39.0-53.0) % MCV 106.7 H (80.0-100.0) fL RDW (11.5-15.5) % Plt Count 60 L (150-450) k/uL Lymphocytes # (1.0-4.8) k/uL Lymphocytes # (Manual) 0.42 L (1.0-4.8) k/uL Metamyelocytes # (Man) 0.05 H (0) k/uL Nucleated RBCs 2 H (0-0) /100 WBC ABG pH 7.34 L (7.35-7.45) ABG pCO2 34 L (35-45) mmHg ABG pO2 239 H (83-108) mmHg ABG HCO3 18 L (21-25) mmol/L ABG Total CO2 (19-24) mmol/L ABG O2 Saturation 100.0 H (94-97) % Sodium 152 H (137-145) mmol/L Potassium 3.2 L (3.5-5.1) mmol/L Chloride 116 H (98-107) mmol/L Carbon Dioxide 10 L (22-30) mmol/L BUN 6 L (9-20) mg/dL Creatinine 0.57 L (0.66-1.25) mg/dL Glucose 205 H (74-99) mg/dL POC Glucose (mg/dL) (75-99) mg/dL Calcium 7.2 L (8.4-10.2) mg/dL Phosphorus (2.5-4.5) mg/dL Magnesium (1.6-2.3) mg/dL Total Bilirubin (0.2-1.3) mg/dL AST (17-59) U/L ALT (21-72) U/L Alkaline Phosphatase (38-126) U/L Total Protein (6.3-8.2) g/dL Albumin (3.5-5.0) g/dL 02/18/19 02/18/19 02/19/19 Range/Units 19:32 23:38 05:14 RBC 2.73 L (4.30-5.90) m/uL Hgb 9.3 L (13.0-17.5) gm/dL Hct 27.3 L (39.0-53.0) % MCV (80.0-100.0) fL RDW 15.8 H (11.5-15.5) % Plt Count 46 L (150-450) k/uL Lymphocytes # 0.8 L (1.0-4.8) k/uL Lymphocytes # (Manual) (1.0-4.8) k/uL Metamyelocytes # (Man) (0) k/uL Nucleated RBCs (0-0) /100 WBC ABG pH (7.35-7.45) ABG pCO2 (35-45) mmHg ABG pO2 (83-108) mmHg ABG HCO3 (21-25) mmol/L ABG Total CO2 (19-24) mmol/L ABG O2 Saturation (94-97) % Sodium 148 H (137-145) mmol/L Potassium 3.0 L (3.5-5.1) mmol/L Chloride 114 H (98-107) mmol/L Carbon Dioxide (22-30) mmol/L BUN 6 L (9-20) mg/dL Creatinine 0.46 L (0.66-1.25) mg/dL Glucose 204 H (74-99) mg/dL POC Glucose (mg/dL) 261 H (75-99) mg/dL Calcium 7.3 L (8.4-10.2) mg/dL Phosphorus (2.5-4.5) mg/dL Magnesium (1.6-2.3) mg/dL Total Bilirubin (0.2-1.3) mg/dL AST (17-59) U/L ALT (21-72) U/L Alkaline Phosphatase (38-126) U/L Total Protein (6.3-8.2) g/dL Albumin (3.5-5.0) g/dL 02/19/19 02/19/19 02/19/19 Range/Units 05:20 06:02 07:20 RBC (4.30-5.90) m/uL Hgb (13.0-17.5) gm/dL Hct (39.0-53.0) % MCV (80.0-100.0) fL RDW (11.5-15.5) % Plt Count (150-450) k/uL Lymphocytes # (1.0-4.8) k/uL Lymphocytes # (Manual) (1.0-4.8) k/uL Metamyelocytes # (Man) (0) k/uL Nucleated RBCs (0-0) /100 WBC ABG pH 7.56 H* (7.35-7.45) ABG pCO2 (35-45) mmHg ABG pO2 160 H (83-108) mmHg ABG HCO3 32 H (21-25) mmol/L ABG Total CO2 33 H (19-24) mmol/L ABG O2 Saturation 99.7 H (94-97) % Sodium (137-145) mmol/L Potassium 2.2 L* (3.5-5.1) mmol/L Chloride (98-107) mmol/L Carbon Dioxide (22-30) mmol/L BUN 7 L (9-20) mg/dL Creatinine 0.47 L (0.66-1.25) mg/dL Glucose 244 H (74-99) mg/dL POC Glucose (mg/dL) 252 H (75-99) mg/dL Calcium 7.5 L (8.4-10.2) mg/dL Phosphorus <0.5 L* (2.5-4.5) mg/dL Magnesium 1.5 L (1.6-2.3) mg/dL Total Bilirubin 5.4 H (0.2-1.3) mg/dL AST 282 H (17-59) U/L ALT 111 H (21-72) U/L Alkaline Phosphatase 134 H (38-126) U/L Total Protein 5.3 L (6.3-8.2) g/dL Albumin 2.9 L (3.5-5.0) g/dL Microbiology - Last 24 Hours (Table) 02/18/19 04:50 Urine Culture - Final Urine,Voided 02/18/19 18:40 Gram Stain - Preliminary Sputum 02/18/19 00:00 Blood Culture - Preliminary Blood No Growth after 24 hours 02/17/19 23:45 Blood Culture - Preliminary Blood No Growth after 24 hours Assessment and Plan Assessment: impression: 1 acute hypoxic respiratory failure secondary to aspiration pneumonia and acute alcohol intoxication associated with possible seizures. Requiring intubation and mechanical ventilation 2 acute alcohol intoxication 3 acute metabolic encephalopathy and alcohol intoxication. 4anion gap metabolic acidosis secondary to alcohol intoxication, possible sepsis, Resolved 5 acute pancreatitis with elevated lipase 6 acute alcohol induced hepatitis 7 acute electrolyte imbalance including hypernatremia, hypokalemia, hypophosphatemia, hypomagnesemia. Hypocalcemia.being addressed accordingly his hypernatremia has corrected nicely, his hypomagnesemia was corrected, and his hypocalcemia was corrected, we are presently correcting his hypokalemia and hypophosphatemia as per protocol. 8 possible sepsis secondary to pneumonia.patient is presently on empiric antibiotics for possible aspiration. 9History of alcoholism 10 history of seizure disorder. Recommendation: continue ventilatory support, nutritional support, GI and DVT prophylaxis, alcohol withdrawal precautions, continue patient on propofol for now, no plans to wean the patient or extubated the patient today, will start enteral feeding today, corrected as abnormal electrolytes including potassium and phosphate. Continue seizure precautions, consider weaning trials in the next 24-48 hours. Prognosis remains poor and guarded, his ventilator settings were adjusted, his FiO2 was cut down to 40%, and consider weaning trials beginni ng tomorrow or the day after. Critical care time is 34 mental C Time with Patient: Greater than 30
--- NOTE | 2019-02-19 11:55 | P.PN ---
Subjective Progress Note Date: 02/19/19 Principal diagnosis: acute alcohol intoxication, extensive right-sided pneumonia, aspiration pneumonia, seizure disorder, hypoxic respiratory failure this is a 38-year-old white male with history of alcohol abuse, seizure disorder, chronic pain syndrome, transferred last night from [facility] were in he presented with acute alcohol intoxication and extensive pneumonia i nvolving the right lung. Patient was brought into the ER, and he was noted to have significant abnormalities including significant infiltrate involving the right lung,abnormal electrolytes with hypernatremia, hypokalemia, anion gap metabolic acidosis,significantly elevated alcohol level,elevated liver enzymes, elevated lipase of 676, hematuria,and negative drug screen except for elevated alcohol of 370.the patient himself is a very poor historian, not much information could be obtained from him, and there is no family member available. Patient was admitted to the ICU, placed on antibiotics which I have changed this morning to Levaquin and Zosyn. I'm more concerned about the possibility of aspiration pneumonia. Patient is now on the CIWA protocol for alcohol withdrawal.he is also on sodium bicarb drip, which I will likely discontinue once I have a repeat basic metabolic profile this afternoon. His ABG on admission showeda pO2 of 82 pCO2 of 28 pH of 7.24, I wasn't notified about this ABG until early this morning around 8 AM.patient was evaluated in the ICU this morning, reviewed her chest x-ray, reviewed his labs, recommended switching the patient to Levaquin and Zosyn, recommended a sodium bicarb drip, recommended changing his IV fluids to D5W, and the patient will also receive the sodium bicarb drip. Patient is presently on the CIWA protocol, and he is also on thiamine. Patient was reevaluated today on 02/19/2019, a few hours after I rounded on the patient yesterday, his clinical status deteriorated, patient became more agitated requiring more sedation, and his O2 saturation was drifting down, hence patient was intubated placed on mechanical ventilation, and remains on mechanical ventilation today. His ventilator settings are assist control rate of 12 tidal volume of 450 FiO2 of 40% and PEEP is 5.ABG this morning showed a pO2 of 160 pCO2 of 36 pH of 7.56. Hence the FiO2 was cut down from 50% to 40%. His chest x-ray continues to show extensive infiltrate in the right lung, patient remains on antibiotics for presumptive aspiration pneumonia. His acidosis corrected nicely hence I have discontinued the sodium bicarb. However the patient has hypokalemia, hypophosphatemia. Both are being corrected as per protocol. Liver enzymes are trending down, total bilirubin remains elevated at 5.4.patient is on 70 mcg/kg/m of propofol, he is hemodynamically stable not requiring any pressors, remains on GI and DVT prophylaxis, remains on thiamine. Enteral feeding will be started today to support the patient nutritional status. Objective - Vital Signs Vital signs: Vital Signs Temp 102 F H 02/19/19 08:30 Pulse 106 H 02/19/19 11:21 Resp 22 02/19/19 10:30 BP 117/78 02/19/19 10:30 Pulse Ox 95 02/19/19 10:30 Intake & Output 02/18/19 02/19/19 02/19/19 18:59 06:59 18:59 Intake Total 2800 2845.0 114.47 Output Total 1827 380 Balance 973 2465.0 114.47 Weight 71.4 kg 80 kg Intake: IV 500 2225 ACETAMINOPHEN IV (For NPO 200 ) 1,000 mg In Empty Bag 1 bag @ 400 mls/hr IVPB ONCE ONE Rx#:[id number] Dextrose 5% in Water 1, 1100 000 ml @ 100 mls/hr IV . Q10H ONE Rx#:[id number] Dextrose 5% in Water 1, 825 000 ml @ 25 mls/hr IV . Q24H [facility] with Sodium Bicarb (1 Meq/ml) 150 ml Rx#:[id number] Dextrose 5%-0.45% NaCl 1, 200 000 ml @ 100 mls/hr IV . Q10H ONE Rx#:[id number] Potassium Chloride 10 meq 300 100 In Water For Injection 1 100ml.bag @ 100 mls/hr IVPB Q1H [facility] Rx#: [id number] Intake, IV Titration 2200 620.0 114.47 Amount Calcium Gluconate 1 gm In 100 Sodium Chloride 0.9% 100 ml @ 100 mls/hr IVPB ONCE ONE Rx#:[id number] Dextrose 5% in Water 1, 1000 100 000 ml @ 100 mls/hr IV . Q10H [facility] Rx#:[id number] Dextrose 5% in Water 1, 600 75 000 ml @ 25 mls/hr IV . Q24H [facility] with Sodium Bicarb (1 Meq/ml) 150 ml Rx#:[id number] Levofloxacin 500Mg-D5w 100 Pmx 500 mg In Dextrose/ Water 1 100ml.bag @ 100 mls/hr IVPB Q24H [facility] Rx#: [id number] Magnesium Sulfate-D5w Pmx 100 1 gm In Dextrose/Water 1 100ml.bag @ 100 mls/hr IVPB ONCE ONE Rx#: [id number] Piperacillin-Tazobactam 3 100 100 .375 gm In Sodium Chloride 0.9% 100 ml @ 25 mls/hr IVPB Q8H [facility] Rx#: [id number] Potassium Chloride 10 meq 100 In Water For Injection 1 100ml.bag @ 100 mls/hr IVPB Q1H [facility] Rx#: [id number] Potassium Chloride 10 meq 100 In Water For Injection 1 100ml.bag @ 100 mls/hr IVPB Q1HR [facility] Rx#: [id number] Propofol 1,000 mg In 345.0 114.47 Empty Bag 1 bag @ Titrate IV .Q0M [facility] Rx#: [id number] Lipid 100 Potassium Chloride 10 meq 100 In Water For Injection 1 100ml.bag @ 100 mls/hr IVPB Q1H [facility] Rx#: [id number] Output: Urine 1827 380 Other: Voiding Method Indwelling Catheter Indwelling Catheter - Exam General:revealed a 58-year-old white male, sedated, on propofol, on mechanical ventilation. Head: atraumatic, normocephalic,abrasion on the nasal bridge as noted. HEENT: PERRLA, EOMI, positive icterus is noted. No neck masses, no JVD, no stridor. Moist mucous membranes. endotracheal tube and orogastric tube are intact. Neck: supple, no neck masses, no JVD. Mouth: moist mucous membranes, poor dentition. Cardiovascular: normal S1 and S2, no S3 gallop, no murmur. Lungs: crackles and rhonchi noted mostly on the right side, left side is relatively clear.. Abdominal: soft nontender no megaly no rebound no guarding. Positive bowel sounds. Ext: no limitation in range of motion, no deformities. Neuro: cannot be assessed today, patient is fully sedated on propofol. Skin: Superficial abrasion noted on the nasal bridge, bruising over the anterior chest wall is also noted. psychiatric: Could not be assessed, patient is on propofol drip. Lymphatics: No lymphadenopathy. - Labs CBC & Chem 7: 02/19/19 05:14 02/19/19 05:20 Labs: Abnormal Lab Results - Last 24 Hours (Table) 02/18/19 02/18/19 02/18/19 Range/Units 05:59 11:27 17:13 RBC 3.18 L (4.30-5.90) m/uL Hgb 10.7 L (13.0-17.5) gm/dL Hct 33.9 L (39.0-53.0) % MCV 106.7 H (80.0-100.0) fL RDW (11.5-15.5) % Plt Count 60 L (150-450) k/uL Lymphocytes # (1.0-4.8) k/uL Lymphocytes # (Manual) 0.42 L (1.0-4.8) k/uL Metamyelocytes # (Man) 0.05 H (0) k/uL Nucleated RBCs 2 H (0-0) /100 WBC ABG pH 7.34 L (7.35-7.45) ABG pCO2 34 L (35-45) mmHg ABG pO2 239 H (83-108) mmHg ABG HCO3 18 L (21-25) mmol/L ABG Total CO2 (19-24) mmol/L ABG O2 Saturation 100.0 H (94-97) % Sodium 152 H (137-145) mmol/L Potassium 3.2 L (3.5-5.1) mmol/L Chloride 116 H (98-107) mmol/L Carbon Dioxide 10 L (22-30) mmol/L BUN 6 L (9-20) mg/dL Creatinine 0.57 L (0.66-1.25) mg/dL Glucose 205 H (74-99) mg/dL POC Glucose (mg/dL) (75-99) mg/dL Calcium 7.2 L (8.4-10.2) mg/dL Phosphorus (2.5-4.5) mg/dL Magnesium (1.6-2.3) mg/dL Total Bilirubin (0.2-1.3) mg/dL AST (17-59) U/L ALT (21-72) U/L Alkaline Phosphatase (38-126) U/L Total Protein (6.3-8.2) g/dL Albumin (3.5-5.0) g/dL 02/18/19 02/18/19 02/19/19 Range/Units 19:32 23:38 05:14 RBC 2.73 L (4.30-5.90) m/uL Hgb 9.3 L (13.0-17.5) gm/dL Hct 27.3 L (39.0-53.0) % MCV (80.0-100.0) fL RDW 15.8 H (11.5-15.5) % Plt Count 46 L (150-450) k/uL Lymphocytes # 0.8 L (1.0-4.8) k/uL Lymphocytes # (Manual) (1.0-4.8) k/uL Metamyelocytes # (Man) (0) k/uL Nucleated RBCs (0-0) /100 WBC ABG pH (7.35-7.45) ABG pCO2 (35-45) mmHg ABG pO2 (83-108) mmHg ABG HCO3 (21-25) mmol/L ABG Total CO2 (19-24) mmol/L ABG O2 Saturation (94-97) % Sodium 148 H (137-145) mmol/L Potassium 3.0 L (3.5-5.1) mmol/L Chloride 114 H (98-107) mmol/L Carbon Dioxide (22-30) mmol/L BUN 6 L (9-20) mg/dL Creatinine 0.46 L (0.66-1.25) mg/dL Glucose 204 H (74-99) mg/dL POC Glucose (mg/dL) 261 H (75-99) mg/dL Calcium 7.3 L (8.4-10.2) mg/dL Phosphorus (2.5-4.5) mg/dL Magnesium (1.6-2.3) mg/dL Total Bilirubin (0.2-1.3) mg/dL AST (17-59) U/L ALT (21-72) U/L Alkaline Phosphatase (38-126) U/L Total Protein (6.3-8.2) g/dL Albumin (3.5-5.0) g/dL 02/19/19 02/19/19 02/19/19 Range/Units 05:20 06:02 07:20 RBC (4.30-5.90) m/uL Hgb (13.0-17.5) gm/dL Hct (39.0-53.0) % MCV (80.0-100.0) fL RDW (11.5-15.5) % Plt Count (150-450) k/uL Lymphocytes # (1.0-4.8) k/uL Lymphocytes # (Manual) (1.0-4.8) k/uL Metamyelocytes # (Man) (0) k/uL Nucleated RBCs (0-0) /100 WBC ABG pH 7.56 H* (7.35-7.45) ABG pCO2 (35-45) mmHg ABG pO2 160 H (83-108) mmHg ABG HCO3 32 H (21-25) mmol/L ABG Total CO2 33 H (19-24) mmol/L ABG O2 Saturation 99.7 H (94-97) % Sodium (137-145) mmol/L Potassium 2.2 L* (3.5-5.1) mmol/L Chloride (98-107) mmol/L Carbon Dioxide (22-30) mmol/L BUN 7 L (9-20) mg/dL Creatinine 0.47 L (0.66-1.25) mg/dL Glucose 244 H (74-99) mg/dL POC Glucose (mg/dL) 252 H (75-99) mg/dL Calcium 7.5 L (8.4-10.2) mg/dL Phosphorus <0.5 L* (2.5-4.5) mg/dL Magnesium 1.5 L (1.6-2.3) mg/dL Total Bilirubin 5.4 H (0.2-1.3) mg/dL AST 282 H (17-59) U/L ALT 111 H (21-72) U/L Alkaline Phosphatase 134 H (38-126) U/L Total Protein 5.3 L (6.3-8.2) g/dL Albumin 2.9 L (3.5-5.0) g/dL Microbiology - Last 24 Hours (Table) 02/18/19 09:45 Blood Culture - Preliminary Blood No Growth after 24 hours 02/18/19 09:28 Blood Culture - Preliminary Blood No Growth after 24 hours 02/18/19 04:50 Urine Culture - Final Urine,Voided 02/18/19 18:40 Gram Stain - Preliminary Sputum 02/18/19 00:00 Blood Culture - Preliminary Blood No Growth after 24 hours 02/17/19 23:45 Blood Culture - Preliminary Blood No Growth after 24 hours Assessment and Plan Assessment: impression: 1 acute hypoxic respiratory failure secondary to aspiration pneumonia and acute alcohol intoxication associated with possible seizures. Requiring intubation and mechanical ventilation 2 acute alcohol intoxication 3 acute metabolic encephalopathy and alcohol intoxication. 4anion gap metabolic acidosis secondary to alcohol intoxication, possible sepsis, Resolved 5 acute pancreatitis with elevated lipase 6 acute alcohol induced hepatitis 7 acute electrolyte imbalance including hypernatremia, hypokalemia, hypophosphatemia, hypomagnesemia. Hypocalcemia.being addressed accordingly his hypernatremia has corrected nicely, his hypomagnesemia was corrected, and his hypocalcemia was corrected, we are presently correcting his hypokalemia and hypophosphatemia as per protocol. 8 possible sepsis secondary to pneumonia.patient is presently on empiric antibiotics for possible aspiration. 9History of alcoholism 10 history of seizure disorder. Recommendation: continue ventilatory support, nutritional support, GI and DVT prophylaxis, alcohol withdrawal precautions, continue patient on propofol for now, no plans to wean the patient or extubated the patient today, will start enteral feeding today, corrected as abnormal electrolytes including potassium and phosphate. Continue seizure precautions, consider weaning trials in the next 24-48 hours. Prognosis remains poor and guarded, his ventilator settings were adjusted, his FiO2 was cut down to 40%, and consider weaning trials beginning tomorrow or the day after. Critical care time is 34 mental C
[2019-02-19 12:03] LABS: Glucose,Whole Blood 160 mg/dL (75-99)
[2019-02-19] MEDS: THIAMINE 100 MG TAB PO SCH ×2 (12:19→17:07)
--- NOTE | 2019-02-19 12:51 | P.PN ---
Subjective Progress Note Date: 02/19/19 Principal diagnosis: Respiratory failure Patient was seen and examined. No acute events overnight. Reports of deterioration yesterday leading to intubation. Patient currently on ventilator with tidal volume 450, rate of 12, FiO2 40 and PEEP of 5. He is on propofol 70 mcg/kg/m. Objective - Vital Signs Vital signs: Vital Signs Temp 102 F H 02/19/19 08:30 Pulse 106 H 02/19/19 11:21 Resp 22 02/19/19 10:30 BP 117/78 02/19/19 10:30 Pulse Ox 95 02/19/19 10:30 Intake & Output 02/18/19 02/19/19 02/19/19 18:59 06:59 18:59 Intake Total 2800 2845.0 114.47 Output Total 1827 380 Balance 973 2465.0 114.47 Weight 71.4 kg 80 kg Intake: IV 500 2225 ACETAMINOPHEN IV (For NPO 200 ) 1,000 mg In Empty Bag 1 bag @ 400 mls/hr IVPB ONCE ONE Rx#:[id number] Dextrose 5% in Water 1, 1100 000 ml @ 100 mls/hr IV . Q10H [facility] Rx#:[id number] Dextrose 5% in Water 1, 825 000 ml @ 25 mls/hr IV . Q24H [facility] with Sodium Bicarb (1 Meq/ml) 150 ml Rx#:[id number] Dextrose 5%-0.45% NaCl 1, 200 000 ml @ 100 mls/hr IV . Q10H [facility] Rx#:[id number] Potassium Chloride 10 meq 300 100 In Water For Injection 1 100ml.bag @ 100 mls/hr IVPB Q1H [facility] Rx#: [id number] Intake, IV Titration 2200 620.0 114.47 Amount Calcium Gluconate 1 gm In 100 Sodium Chloride 0.9% 100 ml @ 100 mls/hr IVPB ONCE ONE Rx#:[id number] Dextrose 5% in Water 1, 1000 100 000 ml @ 100 mls/hr IV . Q10H [facility] Rx#:[id number] Dextrose 5% in Water 1, 600 75 000 ml @ 25 mls/hr IV . Q24H [facility] with Sodium Bicarb (1 Meq/ml) 150 ml Rx#:[id number] Levofloxacin 500Mg-D5w 100 Pmx 500 mg In Dextrose/ Water 1 100ml.bag @ 100 mls/hr IVPB Q24H [facility] Rx#: [id number] Magnesium Sulfate-D5w Pmx 100 1 gm In Dextrose/Water 1 100ml.bag @ 100 mls/hr IVPB ONCE ONE Rx#: [id number] Piperacillin-Tazobactam 3 100 100 .375 gm In Sodium Chloride 0.9% 100 ml @ 25 mls/hr IVPB Q8H [facility] Rx#: [id number] Potassium Chloride 10 meq 100 In Water For Injection 1 100ml.bag @ 100 mls/hr IVPB Q1H [facility] Rx#: [id number] Potassium Chloride 10 meq 100 In Water For Injection 1 100ml.bag @ 100 mls/hr IVPB Q1HR [facility] Rx#: [id number] Propofol 1,000 mg In 345.0 114.47 Empty Bag 1 bag @ Titrate IV .Q0M [facility] Rx#: [id number] Lipid 100 Potassium Chloride 10 meq 100 In Water For Injection 1 100ml.bag @ 100 mls/hr IVPB Q1H [facility] Rx#: [id number] Output: Urine 1827 380 Other: Voiding Method Indwelling Catheter Indwelling Catheter - Exam General: [non toxic], [intubated], [appears at stated age] Derm: [warm], [dry] Head: [atraumatic], [normocephalic], [symmetric] Eyes: [EOMI], [no lid lag], [anicteric sclera] Mouth: [no lip lesion], [mucus membranes moist] Cardiovascular: [S1S2 reg], [tachycardia], [positive DP pulse bilateral] Lungs: [Coarse breath sounds bilateral], [no rhonchi, no rales] , [no accessory muscle use] Abdominal: [soft], [ nontender to palpation], [no guarding], [no appreciable organomegaly] Ext: [no gross muscle atrophy], [no edema], [no contractures] Neuro: [Unable to determine] Psych: [Unable to determine] - Labs CBC & Chem 7: 02/19/19 05:14 02/19/19 05:20 Labs: Abnormal Lab Results - Last 24 Hours (Table) 02/18/19 02/18/19 02/18/19 Range/Units 17:13 19:32 23:38 RBC (4.30-5.90) m/uL Hgb (13.0-17.5) gm/dL Hct (39.0-53.0) % RDW (11.5-15.5) % Plt Count (150-450) k/uL Lymphocytes # (1.0-4.8) k/uL ABG pH 7.34 L (7.35-7.45) ABG pCO2 34 L (35-45) mmHg ABG pO2 239 H (83-108) mmHg ABG HCO3 18 L (21-25) mmol/L ABG Total CO2 (19-24) mmol/L ABG O2 Saturation 100.0 H (94-97) % Sodium 148 H (137-145) mmol/L Potassium 3.0 L (3.5-5.1) mmol/L Chloride 114 H (98-107) mmol/L BUN 6 L (9-20) mg/dL Creatinine 0.46 L (0.66-1.25) mg/dL Glucose 204 H (74-99) mg/dL POC Glucose (mg/dL) 261 H (75-99) mg/dL Calcium 7.3 L (8.4-10.2) mg/dL Phosphorus (2.5-4.5) mg/dL Magnesium (1.6-2.3) mg/dL Total Bilirubin (0.2-1.3) mg/dL AST (17-59) U/L ALT (21-72) U/L Alkaline Phosphatase (38-126) U/L Total Protein (6.3-8.2) g/dL Albumin (3.5-5.0) g/dL 02/19/19 02/19/19 02/19/19 Range/Units 05:14 05:20 06:02 RBC 2.73 L (4.30-5.90) m/uL Hgb 9.3 L (13.0-17.5) gm/dL Hct 27.3 L (39.0-53.0) % RDW 15.8 H (11.5-15.5) % Plt Count 46 L (150-450) k/uL Lymphocytes # 0.8 L (1.0-4.8) k/uL ABG pH (7.35-7.45) ABG pCO2 (35-45) mmHg ABG pO2 (83-108) mmHg ABG HCO3 (21-25) mmol/L ABG Total CO2 (19-24) mmol/L ABG O2 Saturation (94-97) % Sodium (137-145) mmol/L Potassium 2.2 L* (3.5-5.1) mmol/L Chloride (98-107) mmol/L BUN 7 L (9-20) mg/dL Creatinine 0.47 L (0.66-1.25) mg/dL Glucose 244 H (74-99) mg/dL POC Glucose (mg/dL) 252 H (75-99) mg/dL Calcium 7.5 L (8.4-10.2) mg/dL Phosphorus <0.5 L* (2.5-4.5) mg/dL Magnesium 1.5 L (1.6-2.3) mg/dL Total Bilirubin 5.4 H (0.2-1.3) mg/dL AST 282 H (17-59) U/L ALT 111 H (21-72) U/L Alkaline Phosphatase 134 H (38-126) U/L Total Protein 5.3 L (6.3-8.2) g/dL Albumin 2.9 L (3.5-5.0) g/dL 02/19/19 02/19/19 Range/Units 07:20 12:01 RBC (4.30-5.90) m/uL Hgb (13.0-17.5) gm/dL Hct (39.0-53.0) % RDW (11.5-15.5) % Plt Count (150-450) k/uL Lymphocytes # (1.0-4.8) k/uL ABG pH 7.56 H* (7.35-7.45) ABG pCO2 (35-45) mmHg ABG pO2 160 H (83-108) mmHg ABG HCO3 32 H (21-25) mmol/L ABG Total CO2 33 H (19-24) mmol/L ABG O2 Saturation 99.7 H (94-97) % Sodium (137-145) mmol/L Potassium (3.5-5.1) mmol/L Chloride (98-107) mmol/L BUN (9-20) mg/dL Creatinine (0.66-1.25) mg/dL Glucose (74-99) mg/dL POC Glucose (mg/dL) 160 H (75-99) mg/dL Calcium (8.4-10.2) mg/dL Phosphorus (2.5-4.5) mg/dL Magnesium (1.6-2.3) mg/dL Total Bilirubin (0.2-1.3) mg/dL AST (17-59) U/L ALT (21-72) U/L Alkaline Phosphatase (38-126) U/L Total Protein (6.3-8.2) g/dL Albumin (3.5-5.0) g/dL Microbiology - Last 24 Hours (Table) 02/18/19 09:45 Blood Culture - Preliminary Blood No Growth after 24 hours 02/18/19 09:28 Blood Culture - Preliminary Blood No Growth after 24 hours 02/18/19 04:50 Urine Culture - Final Urine,Voided 02/18/19 18:40 Gram Stain - Preliminary Sputum 02/18/19 00:00 Blood Culture - Preliminary Blood No Growth after 24 hours 02/17/19 23:45 Blood Culture - Preliminary Blood No Growth after 24 hours Assessment and Plan Assessment: Assessment and Plan Acute respiratory failure Aspiration pneumonia Acute metabolic encephalopathy from alcohol intoxication Anion gap metabolic acidosis likely from starvation ketoacidosis and alcohol use Hypokalemia, hypocalcemia, hypophosphatemia Macrocytic anemia Transaminitis Elevated lipase History of seizure disorder From DTs and aspiration pneumonia. Full ventilator support. Management as per pulmonology. Continue IV antibiotics for pneumonia. Wean off vent as necessary. Follow pulmonology consult. Initially started on ceftriaxone and azithromycin for concerns of community- acquired pneumonia. Switched by pulmonology to levofloxacin and Zosyn IV for coverage and aspiration pneumonia. Continue DuoNeb as needed for shortness of breath and wheezing. Aspiration precautions. Elevate head of bed. Chest x-ray this morning shows stable infiltrate. Sputum culture and blood culture prelim negative at 24 hours. Follow sputum culture. Follow blood culture. Maintain O2 saturation greater than 92%. Follow pulmonology consult. Blood alcohol level 370 on admission. CIWA protocol. Ativan IV as needed. Seizure and fall precautions. Keep nothing by mouth. Resolved. Continue maintenance D5 with sodium bicarbonate at 25 mL per hour. Daily BMP. Likely secondary to alcohol abuse. Replace potassium via protocol. Replace calcium via IV. Phosphorus replacement via protocol. Hemoglobin 10.7 with MCV 106.7. Likely secondary to alcohol abuse. Daily CBC. Total bilirubin 5.3 to 5.4, AST 377 to 282, LT 133 to 111, alkaline phosphatase 129 to 134. Likely liver damage secondary to alcohol abuse. Daily CMP. Lipase 676. Possibly acute pancreatitis. Patient unable to provide history. Continue IVF. Keep nothing by mouth for now. Adequate pain control. Follow lipase in the morning. [facility] Will wait for medication reconciliation in order to restart. Patient intubated, continue full vent support. Vent liberation trial as tolerated. Patient is pending clinical im provement.
[2019-02-19 18:11] LABS: Glucose,Whole Blood 128 mg/dL (75-99)
[2019-02-19] MEDS: SODIUM CHLORIDE 0.9% 1,000 ML IV SCH (20:40)
[2019-02-19 23:39] LABS: Glucose,Whole Blood 155 mg/dL (75-99)
[2019-02-20] MEDS: DEXTROSE 5% IN WATER 1,000 ML with SODIUM BICARB (1 MEQ/ML) 150 ML IV SCH (00:41)
[2019-02-20] MEDS: POTASSIUM CHLORIDE 10 MEQ in WATER FOR INJECTION 1 100ML.BAG IVPB SCH ×7 (01:10→13:56)
[2019-02-20] MEDS: INSULIN ASPART (NovoLOG) 100 UNIT/ML VIAL SQ SCH ×4 (01:11→18:36)
[2019-02-20] MEDS: PIPERACILLIN-TAZOBACTAM 3.375 GM in SODIUM CHLORIDE 0.9% 100 ML IVPB SCH ×3 (01:12→17:14)
[2019-02-20] MEDS: PROPOFOL 1,000 MG in EMPTY BAG 1 BAG IV SCH ×7 (01:57→21:13)
[2019-02-20] MEDS: LORazepam 2 MG/ML INJ IV PRN ×5 (02:57→13:51)
[2019-02-20 04:17] LABS: ABG Base Excess 5.9 mmol/L; ABG HCO3 29 mmol/L (21-25); ABG PCO2 34 mmHg (35-45); ABG PH 7.54 (7.35-7.45); ABG PO2 83 mmHg (83-108); ABG TCO2 30 mmol/L (19-24)
[2019-02-20 05:04] LABS: HCT 29.5 % (39.0-53.0); HGB 10.1 gm/dL (13.0-17.5); MCHC 34.4 g/dL (31.0-37.0); MCV 101.9 fL (80.0-100.0); Macrocytosis Slight; Mean Platelet Volume 10.6; Poikilocytosis Slight; WBC 8.6 k/uL (3.8-10.6)
[2019-02-20 05:17] LABS: ALT 113 U/L (21-72); AST 344 U/L (17-59); Albumin 3.1 g/dL (3.5-5.0); Alkaline Phosphatase 157 U/L (38-126); Anion Gap 8 mmol/L; Blood Urea Nitrogen 8 mg/dL (9-20); Calcium 7.3 mg/dL (8.4-10.2); Carbon Dioxide 26 mmol/L (22-30); Chloride 111 mmol/L (98-107); Glucose 112 mg/dL (74-99); Magnesium 1.4 mg/dL (1.6-2.3); Sodium 145 mmol/L (137-145); Total Bilirubin 6.5 mg/dL (0.2-1.3); Total Protein 5.8 g/dL (6.3-8.2)
[2019-02-20 05:20] LABS: Band Neutrophils % 7 %; Eosinophils # (M) 0.09 k/uL (0-0.7); Lymphocytes # (M) 1.72 k/uL (1.0-4.8); Neutrophils % (M) 65 %; Nucleated Red Blood Cells 0 /100 WBC (0-0); Total Cells Counted 100
[2019-02-20 05:21] LABS: Platelet Count 56 k/uL (150-450); Potassium 2.4 mmol/L (3.5-5.1)
[2019-02-20 05:29] LABS: Glucose,Whole Blood 127 mg/dL (75-99)
[2019-02-20] MEDS: SODIUM CHLORIDE 0.9% 1,000 ML IV SCH (05:31)
[2019-02-20] MEDS ORDERED: Potassium Replacement Protocol 1 EACH MISC MISCELLANE PRN (05:45)
[2019-02-20] MEDS ORDERED: Magnesium Replacement Protocol 1 EACH MISC MISCELLANE PRN (06:58)
[2019-02-20] MEDS: IPRATROPIUM-ALBUTEROL 3 ML NEB INHALATION PRN (07:17)
[2019-02-20 07:36] LABS: ABG PH 7.56 (7.35-7.45)
--- NOTE | 2019-02-20 08:06 | XR ---
EXAMINATION TYPE: XR chest 1V portable DATE OF EXAM: 02/20/2019 COMPARISON: Prior chest x-ray 02/19/2019 HISTORY: Shortness of breath TECHNIQUE: Single frontal view of the chest is obtained. FINDINGS: Endotracheal tube and NG tube are overlying appropriate positions. There is no evident pne umothorax or pleural effusion. Suspect there is some improvement in aeration in the right lung. Lung volumes are low and the patient is rotated. Heart size is stable. Patchy basilar density persists on the left. IMPRESSION: Some slight improvement in aeration may be present in the right lung. Additional follow- up recommended. Left lower lobe atelectasis persists.
[2019-02-20] MEDS: MAGNESIUM SULFATE-D5W PMX 1 GM in DEXTROSE/WATER 1 100ML.BAG IVPB SCH ×3 (08:07→11:01)
[2019-02-20] MEDS: ENOXAPARIN 40 MG/0.4 ML SYRINGE SQ SCH (08:08)
[2019-02-20] MEDS: PANTOPRAZOLE 40 MG/10 ML VIAL IVP SCH (08:08)
[2019-02-20] MEDS: CHLORHEXIDINE GLUCONATE 15 ML CUP MUCOUS MEM SCH ×2 (08:08→21:24)
[2019-02-20] MEDS: SODIUM CHLORIDE 0.45% 1,000 ML IV SCH ×3 (10:03→21:54)
[2019-02-20] MEDS: LEVOFLOXACIN 500MG-D5W PMX 500 MG in DEXTROSE/WATER 1 100ML.BAG IVPB SCH (10:04)
--- NOTE | 2019-02-20 10:58 | PN ---
PROGRESS NOTE This is a 38-year-old male who was admitted back on February 17. He came with alcohol withdrawal syndrome as well as possible aspiration pneumonia. He was intubated for respiratory failure on February 18. Since that time, he has had no significant weaning. We are going to do a daily interruption of sedation today. Currently, the patient is on the volume assist-control mode rate of 12, tidal volume 450, FiO2 40% with a PEEP of 5. Blood gases show pO2 of 83, pCO2 of 34, pH 7.53. Blood gases consistent with both a respiratory and metabolic alkalosis. The patient's IV is a 0.9 IV at 100 mL an hour. Because of hypernatremia, hyperchloremia, the patient's IV will be switched to 0.45 at 100 mL an hour. The patient is receiving Diprivan at 70 mcg/kg per minute and Vital high-protein at 20 with a goal of 57 mL/hour. Chest x-ray shows minimal infiltrates. The patient has a history of not only acute hypoxemic respiratory failure secondary to aspiration pneumonia and possible seizure, but a history of acute alcohol intoxication, acute metabolic encephalopathy, anion gap metabolic acidosis, acute pancreatitis, alcohol induced hepatitis, significant electrolyte disturbance and possible refeeding syndrome and other medical problems. The patient is only 38 years of age, but looks much older than his stated age. Currently sedated on the ventilator. Current vital signs are stable include temperature 97, heart rate 80, respiratory rate 20, blood pressure 132/97, mean 108 and saturations of 100% on 40% FiO2 and 5 of PEEP. Appears in no acute distress. He is currently sedated. There is an orally placed endotracheal tube and NG tube. HEENT examination is otherwise unremarkable. NECK: Supple. Full range of motion. No adenopathy. Neck veins are flat. Cardiovascular examination reveals regular rhythm and rate. Heart rate high 80s, low 90s. S1, S2 normal. No murmur. Lungs reveal mostly clear breath sounds. A few scattered rhonchi. No wheezes or crackles. Breath sounds are equal bilaterally. Abdomen is distended. There is significant bruising in the right chest area. There is also some bruising in the abdominal area, particularly in the right lateral abdominal area. Bowel sounds are noted. Extremities are intact. There is some bruising on both the right and left lower leg. There is minimal edema. No cyanosis or clubbing. Skin without rash otherwise. Neurologic examination cannot be evaluated. Chest x-ray is reviewed. It shows improvement in the patient's aeration particularly in the right and left lower lobe. There may be some residual minimal infiltrate or atelectasis there. Labs are reviewed. White count 8.6, hemoglobin 10.1, hematocrit 29.5, platelet count is 56,000. Blood gases already been noted. Sodium 145, potassium 2.4, chloride 111, CO2 is 26, anion gap 8. BUN and creatinine were 8 and 0.33. Calcium 7.3, phosphorus 4.8, magnesium 1.4. Total bilirubin 6.5, AST 344, ALT 113, alkaline phosphatase 157. Ammonia 57 and CK 479. Medications are reviewed. His medications appeared to be appropriate, but will review each one clearly. ASSESSMENT: 1. Acute hypoxemic respiratory failure secondary to aspiration pneumonia and acute alcohol intoxication with alcohol withdrawal syndrome and possible rum fits (alcoholic seizures). 2. Status post intubation and mechanical ventilation on February 18 for respiratory failure as above. 3. History of acute alcohol intoxication. 4. Metabolic encephalopathy. 5. Anion gap metabolic acidosis. 6. Acute pancreatitis. 7. Acute alcohol induced hepatitis. 8. Profound electrolyte disturbance, likely related to underlying refeeding syndrome. 9. Possible sepsis secondary to aspiration. 10.History of chronic alcohol abuse. 11.History of seizure disorder. PLAN: The patient's medications, labs, x-rays and problem list all reviewed. We will attempt a daily interruption of sedation. We have changed the IV fluids from 0.9 saline to 0.45 saline because of the hypernatremia and hyperchloremia. The nurse will work hard to correct electrolyte disturbances. Additional recommendations and suggestions are forthcoming. Prognosis is guarded. Med list is reviewed. CRITICAL CARE TIME: 36 minutes. MMODL / IJN: [id number] / MTDD
[2019-02-20] MEDS: IPRATROPIUM-ALBUTEROL 3 ML NEB INHALATION SCH ×3 (11:32→19:44)
[2019-02-20 11:49] LABS: Glucose,Whole Blood 159 mg/dL (75-99)
[2019-02-20] MEDS: THIAMINE 100 MG TAB PO SCH ×2 (11:52→17:15)
[2019-02-20 12:08] LABS: Glucose,Whole Blood 160 mg/dL (75-99)
[2019-02-20] MEDS ORDERED: LACTULOSE 20 GM/30 ML CUP PO ONE (13:28)
[2019-02-20] MEDS: POTASSIUM PHOSPHATE 10 MMOL in SODIUM CHLORIDE 0.9% 250 ML IV SCH ×3 (14:59→19:13)
[2019-02-20] MEDS: HYDROmorphone 1 MG/ML 1 ML SYRINGE IVP PRN (15:00)
--- NOTE | 2019-02-20 16:11 | P.PN ---
Subjective Progress Note Date: 02/20/19 Principal diagnosis: Acute hypoxia respiratory failure Patient seen and examined. No acute events overnight. Patient continues to be on the ventilator. Tidal volume 450, rate of 12, FiO2 40 and PEEP of 5. He is on propofol 75 mcg/kg/m. Objective - Vital Signs Vital signs: Vital Signs Temp 101.7 F H 02/20/19 15:00 Pulse 96 02/20/19 15:56 Resp 17 02/20/19 15:56 BP 112/82 02/20/19 15:00 Pulse Ox 95 02/20/19 15:00 Intake & Output 02/19/19 02/20/19 02/20/19 18:59 06:59 18:59 Intake Total 2214.934 2100.396 2365.057 Output Total 475 448 335 Balance 5585.881 7347.396 2030.057 Weight 80 kg 71.3 kg Intake: IV 1900 1700 1850 0.9 @ 100 1200 1200 200 Magnesium Sulfate-D5w Pmx 300 1 gm In Dextrose/Water 1 100ml.bag @ 100 mls/hr IVPB Q1H [facility] Rx#: [id number] Piperacillin-Tazobactam 3 200 100 100 .375 gm In Sodium Chloride 0.9% 100 ml @ 25 mls/hr IVPB Q8H [facility] Rx#: [id number] Potassium Chloride 10 meq 100 In Water For Injection 1 100ml.bag @ 100 mls/hr IVPB Q1H [facility] Rx#: [id number] Potassium Chloride 10 meq 200 In Water For Injection 1 100ml.bag @ 100 mls/hr IVPB Q1HR [facility] Rx#: [id number] Potassium Chloride 10 meq 500 In Water For Injection 1 100ml.bag @ 100 mls/hr IVPB Q1HR [facility] Rx#: [id number] Potassium Phosphate 10 300 300 100 mmol In Sodium Chloride 0 .9% 250 ml @ 125 mls/hr IV Q2H [facility] Rx#:[id number] Potassium Phosphate 10 250 mmol In Sodium Chloride 0 .9% 250 ml @ 125 mls/hr IV Q2H [facility] Rx#:[id number] Sodium Chloride 0.45% 1, 400 000 ml @ 100 mls/hr IV . Q10H [facility] Rx#:[id number] Intake, IV Titration 304.934 360.396 215.057 Amount Propofol 1,000 mg In 304.934 360.396 215.057 Empty Bag 1 bag @ Titrate IV .Q0M [facility] Rx#: [id number] Tube Feeding 10 40 220 Other 80 Output: Urine 475 448 335 Other: Voiding Method Indwelling Catheter Indwelling Catheter Indwelling Catheter - Exam General: [non toxic], [intubated], [appears at stated age] Derm: [warm], [dry] Head: [atraumatic], [normocephalic], [symmetric] Eyes: [EOMI], [no lid lag], [anicteric sclera] Mouth: [no lip lesion], [mucus membranes moist] Cardiovascular: [S1S2 reg], [tachycardia], [positive DP pulse bilateral] Lungs: [Coarse breath sounds bilateral], [no rhonchi, no rales] , [no accessory muscle use] Abdominal: [soft], [ nontender to palpation], [no guarding], [distended and hepatomegaly] Ext: [no gross muscle atrophy], [no edema], [no contractures] Neuro: [Unable to determine] Psych: [Unable to determine] - Labs CBC & Chem 7: 02/20/19 04:51 02/20/19 04:51 Labs: Abnormal Lab Results - Last 24 Hours (Table) 02/19/19 02/19/19 02/19/19 Range/Units 07:20 18:10 23:36 RBC (4.30-5.90) m/uL Hgb (13.0-17.5) gm/dL Hct (39.0-53.0) % MCV (80.0-100.0) fL RDW (11.5-15.5) % Plt Count (150-450) k/uL ABG pH 7.56 H* (7.35-7.45) ABG pCO2 (35-45) mmHg ABG HCO3 (21-25) mmol/L ABG Total CO2 (19-24) mmol/L ABG O2 Saturation (94-97) % Potassium (3.5-5.1) mmol/L Chloride (98-107) mmol/L BUN (9-20) mg/dL Creatinine (0.66-1.25) mg/dL Glucose (74-99) mg/dL POC Glucose (mg/dL) 128 H 155 H (75-99) mg/dL Calcium (8.4-10.2) mg/dL Phosphorus (2.5-4.5) mg/dL Magnesium (1.6-2.3) mg/dL Total Bilirubin (0.2-1.3) mg/dL AST (17-59) U/L ALT (21-72) U/L Alkaline Phosphatase (38-126) U/L Ammonia (<30) umol/L Creatine Kinase (55-170) U/L Total Protein (6.3-8.2) g/dL Albumin (3.5-5.0) g/dL 02/20/19 02/20/19 02/20/19 Range/Units 04:13 04:51 04:51 RBC 2.90 L (4.30-5.90) m/uL Hgb 10.1 L (13.0-17.5) gm/dL Hct 29.5 L (39.0-53.0) % MCV 101.9 H (80.0-100.0) fL RDW 16.0 H (11.5-15.5) % Plt Count 56 L (150-450) k/uL ABG pH 7.54 H (7.35-7.45) ABG pCO2 34 L (35-45) mmHg ABG HCO3 29 H (21-25) mmol/L ABG Total CO2 30 H (19-24) mmol/L ABG O2 Saturation 98.0 H (94-97) % Potassium 2.4 L* (3.5-5.1) mmol/L Chloride 111 H (98-107) mmol/L BUN 8 L (9-20) mg/dL Creatinine 0.33 L (0.66-1.25) mg/dL Glucose 112 H (74-99) mg/dL POC Glucose (mg/dL) (75-99) mg/dL Calcium 7.3 L (8.4-10.2) mg/dL Phosphorus (2.5-4.5) mg/dL Magnesium 1.4 L (1.6-2.3) mg/dL Total Bilirubin 6.5 H (0.2-1.3) mg/dL AST 344 H (17-59) U/L ALT 113 H (21-72) U/L Alkaline Phosphatase 157 H (38-126) U/L Ammonia (<30) umol/L Creatine Kinase (55-170) U/L Total Protein 5.8 L (6.3-8.2) g/dL Albumin 3.1 L (3.5-5.0) g/dL 02/20/19 02/20/19 02/20/19 Range/Units 04:51 05:28 09:07 RBC (4.30-5.90) m/uL Hgb (13.0-17.5) gm/dL Hct (39.0-53.0) % MCV (80.0-100.0) fL RDW (11.5-15.5) % Plt Count (150-450) k/uL ABG pH (7.35-7.45) ABG pCO2 (35-45) mmHg ABG HCO3 (21-25) mmol/L ABG Total CO2 (19-24) mmol/L ABG O2 Saturation (94-97) % Potassium (3.5-5.1) mmol/L Chloride (98-107) mmol/L BUN (9-20) mg/dL Creatinine (0.66-1.25) mg/dL Glucose (74-99) mg/dL POC Glucose (mg/dL) 127 H (75-99) mg/dL Calcium (8.4-10.2) mg/dL Phosphorus 0.8 L* (2.5-4.5) mg/dL Magnesium (1.6-2.3) mg/dL Total Bilirubin (0.2-1.3) mg/dL AST (17-59) U/L ALT (21-72) U/L Alkaline Phosphatase (38-126) U/L Ammonia 57 H (<30) umol/L Creatine Kinase (55-170) U/L Total Protein (6.3-8.2) g/dL Albumin (3.5-5.0) g/dL 02/20/19 02/20/19 02/20/19 Range/Units 09:07 11:48 12:06 RBC (4.30-5.90) m/uL Hgb (13.0-17.5) gm/dL Hct (39.0-53.0) % MCV (80.0-100.0) fL RDW (11.5-15.5) % Plt Count (150-450) k/uL ABG pH (7.35-7.45) ABG pCO2 (35-45) mmHg ABG HCO3 (21-25) mmol/L ABG Total CO2 (19-24) mmol/L ABG O2 Saturation (94-97) % Potassium (3.5-5.1) mmol/L Chloride (98-107) mmol/L BUN (9-20) mg/dL Creatinine (0.66-1.25) mg/dL Glucose (74-99) mg/dL POC Glucose (mg/dL) 159 H 160 H (75-99) mg/dL Calcium (8.4-10.2) mg/dL Phosphorus (2.5-4.5) mg/dL Magnesium (1.6-2.3) mg/dL Total Bilirubin (0.2-1.3) mg/dL AST (17-59) U/L ALT (21-72) U/L Alkaline Phosphatase (38-126) U/L Ammonia (<30) umol/L Creatine Kinase 479 H (55-170) U/L Total Protein (6.3-8.2) g/dL Albumin (3.5-5.0) g/dL Microbiology - Last 24 Hours (Table) 02/18/19 09:45 Blood Culture - Preliminary Blood No Growth after 48 hours 02/18/19 09:28 Blood Culture - Preliminary Blood No Growth after 48 hours 02/18/19 18:40 Gram Stain - Final Sputum Sputum Culture - Final 02/18/19 00:00 Blood Culture - Preliminary Blood No Growth after 48 hours 02/17/19 23:45 Blood Culture - Preliminary Blood No Growth after 48 hours Assessment and Plan Assessment: Assessment and Plan Acute respiratory failure Aspiration pneumonia Acute metabolic encephalopathy from alcohol intoxication Anion gap metabolic acidosis likely from starvation ketoacidosis and alcohol use Hypokalemia, hypocalcemia, hypophosphatemia Macrocytic anemia Transaminitis Elevated lipase History of seizure disorder From DTs and aspiration pneumonia. Full ventilator support. Management as per pulmonology. Continue IV antibiotics for pneumonia. Wean off vent as necessary. Follow pulmonology consult. Initially started on ceftriaxone and azithromycin for concerns of community- acquired pneumonia. Switched by pulmonology to levofloxacin and Zosyn IV for coverage and aspiration pneumonia. Continue DuoNeb as needed for shortness of breath and wheezing. Aspiration precautions. Elevate head of bed. Chest x-ray this morning shows stable infiltrate. Sputum culture and blood culture prelim negative at 48 hours. Follow sputum culture. Follow blood culture. Maintain O2 saturation greater than 92. Follow pulmonology consult. Blood alcohol level 370 on admission. CIWA protocol. Ativan IV as needed. Seizure and fall precautions. Keep nothing by mouth. Resolved. Continue normal saline at 100 mL/h. Daily BMP. Likely secondary to alcohol abuse. Replace potassium via protocol. Replace calcium via IV. Phosphorus replacement via protocol. Hemoglobin 10.7-10.1 with MCV 101.9. Likely secondary to alcohol abuse. Daily CBC. Total bilirubin 5.3 to 5.4 to 6.5, AST 377 to 282 to 344, LT 133 to 111 to 113, alkaline phosphatase 129 to 134 to 157. Likely liver damage secondary to alcohol abuse. Daily CMP. Lipase 676 to 479. Possibly acute pancreatitis. Patient unable to provide history. Continue IVF. Keep nothing by mouth for now. Adequate pain control. Follow lipase in the morning. Patient intubated, continue full vent support. Vent liberation trial as tolerated. Patient is pending clinical improvement. Answered all questions for girlfriend at bedside.
[2019-02-20 18:34] LABS: Glucose,Whole Blood 149 mg/dL (75-99)
[2019-02-21] MEDS: IPRATROPIUM-ALBUTEROL 3 ML NEB INHALATION SCH ×7 (00:31→23:27)
[2019-02-21 00:32] LABS: Glucose,Whole Blood 169 mg/dL (75-99)
[2019-02-21] MEDS: INSULIN ASPART (NovoLOG) 100 UNIT/ML VIAL SQ SCH ×5 (00:42→23:55)
[2019-02-21] MEDS: HYDROmorphone 1 MG/ML 1 ML SYRINGE IVP PRN ×4 (02:01→18:16)
[2019-02-21] MEDS: PIPERACILLIN-TAZOBACTAM 3.375 GM in SODIUM CHLORIDE 0.9% 100 ML IVPB SCH ×3 (02:02→18:13)
[2019-02-21] MEDS: PROPOFOL 1,000 MG in EMPTY BAG 1 BAG IV SCH ×4 (03:05→21:07)
[2019-02-21 04:26] LABS: ABG Base Excess 2.3 mmol/L; ABG HCO3 27 mmol/L (21-25); ABG PCO2 46 mmHg (35-45); ABG PH 7.38 (7.35-7.45); ABG PO2 72 mmHg (83-108); ABG TCO2 29 mmol/L (19-24)
[2019-02-21 04:30] LABS: Basophils # (A) 0.1 k/uL (0-0.2); Basophils % (A) 1 %; Eosinophils # (A) 0.1 k/uL (0-0.7); Eosinophils % (A) 2 %; HCT 27.4 % (39.0-53.0); HGB 9.2 gm/dL (13.0-17.5); Lymphocytes # (A) 1.1 k/uL (1.0-4.8); Lymphocytes % (A) 16 %; MCH 34.6 pg (25.0-35.0); MCHC 33.7 g/dL (31.0-37.0); MCV 102.6 fL (80.0-100.0); Macrocytosis Slight; Mean Platelet Volume 8.7; Monocytes # (A) 0.3 k/uL (0-1.0); Monocytes % (A) 5 %; Neutrophils # (A) 4.8 k/uL (1.3-7.7); Neutrophils % (A) 73 %; RBC 2.67 m/uL (4.30-5.90); RDW 15.7 % (11.5-15.5); WBC 6.5 k/uL (3.8-10.6)
[2019-02-21 04:38] LABS: Platelet Count 97 k/uL (150-450)
[2019-02-21 04:39] LABS: ALT 109 U/L (21-72); AST 317 U/L (17-59); Albumin 2.9 g/dL (3.5-5.0); Alkaline Phosphatase 175 U/L (38-126); Anion Gap 10 mmol/L; Blood Urea Nitrogen 11 mg/dL (9-20); Calcium 6.9 mg/dL (8.4-10.2); Carbon Dioxide 24 mmol/L (22-30); Chloride 111 mmol/L (98-107); Glucose 112 mg/dL (74-99); Magnesium 2.1 mg/dL (1.6-2.3); Sodium 145 mmol/L (137-145); Total Bilirubin 5.8 mg/dL (0.2-1.3); Total Protein 5.6 g/dL (6.3-8.2)
[2019-02-21] MEDS: POTASSIUM BICARBONATE/CIT AC 20 MEQ TABLET.EFF NG-TUBE SCH ×4 (05:25→11:51)
[2019-02-21] MEDS: LORazepam 2 MG/ML INJ IV PRN ×4 (05:44→20:57)
[2019-02-21 06:36] LABS: Glucose,Whole Blood 145 mg/dL (75-99)
--- NOTE | 2019-02-21 08:04 | XR ---
EXAMINATION TYPE: XR chest 1V portable DATE OF EXAM: 02/21/2019 COMPARISON: Prior chest x-ray 02/20/2019 HISTORY: Shortness of breath TECHNIQUE: Single frontal view of the chest is obtained. FINDINGS: Endotracheal tube and NG tube are overlying appropriate positions. Retrocardiac density andrade s progressed. No pneumothorax. Airspace disease persists in the right lung. Lung volumes are low and the patient is rotated. IMPRESSION: Findings are similar to prior exam. Lower lobe atelectasis on the left, correlate for po ssible pneumonia.
[2019-02-21] MEDS ORDERED: LACTULOSE 20 GM/30 ML CUP PO ONE (09:09)
--- NOTE | 2019-02-21 09:29 | PN ---
PROGRESS NOTE DATE OF SERVICE: February 21, 2019 This is a 38-year-old male who was admitted back on February 17. He came with alcohol withdrawal syndrome as well as aspiration pneumonia. He was intubated for respiratory failure on February 18. We attempted a daily interruption of sedation and evaluation for spontaneous breathing trial yesterday but he is not a candidate. After being off sedation just for a few minutes, he became very tachypneic, tachycardic, hypertensive. We had to re-sedate him. Currently, the patient is on the assist-control mode, rate of 12, tidal volume 450, FiO2 of 40%, PEEP of 5. Blood gases show pO2 of 72, pCO2 of 46 and pH is 7.38. These arterial blood gases are consistent with a mixed acid-base disturbance including a respiratory acidosis and metabolic alkalosis. The pH is normal. He is also getting half-normal saline IV at 100 mL an hour, propofol at 65 mcg/kg per minute and Vital high-protein at 57 mL an hour with a goal of 57 mL an hour. Microbiology is thus far all negative. Current vital signs are reviewed. Temperature currently is 98.8, heart rate 106, respiratory rate 15, blood pressure 127/91 with mean 103 and saturations are 95% on an FiO2 40% PEEP of 5. Currently sedated. Appears in no acute distress. He has got an orally placed endotracheal tube and NG tube. HEENT: Examination is grossly unremarkable. NECK: Supple. Full range of motion. No adenopathy. Neck veins are flat. CARDIOVASCULAR: Examination reveals mild tachycardia. Heart rate about 105 beats per minute. S1, S2 normal. No distinct murmur noted. LUNGS: Reveal mostly clear breath sounds. No wheezes, rhonchi, or crackles. Breath sounds are equal bilaterally. ABDOMEN: Soft. Belly is mildly distended. Bowel sounds are noted. EXTREMITIES: Are intact. Multiple bruises noted. Unchanged from yesterday. No edema. No cyanosis or clubbing. SKIN: Without rash other than ecchymoses. NEUROLOGIC: Examination could not be adequately evaluated given his level of sedation. Currently, as mentioned, he is on half-normal saline at 100 mL an hour, propofol at 65 mcg/kg per minute and Vital high-protein at 57 with a goal of 57 mL an hour. Microbiologic studies have been negative thus far. White count 6.5, hemoglobin 9.2, hematocrit 27.4, platelet count 97,000. Sodium 145, potassium 3, chloride 111, CO2 of 24. BUN and creatinine were 11 and 0.71. Anion gap is normal. Alkaline phosphatase 175. Ammonia is up to 93. Bilirubin is 5.8, AST 317, ALT 109, albumin 2.9. Medications are reviewed. ASSESSMENT: 1. Acute hypoxemic respiratory failure secondary to aspiration pneumonia and acute alcohol intoxication with alcohol withdrawal syndrome and possible rum fits (alcoholic seizures). 2. Status post intubation, mechanical ventilation on February 18 for respiratory failure as above. Patient having failed DIS, by the way that means daily interruption of sedation. 3. History of acute alcohol intoxication. 4. Metabolic encephalopathy. 5. Anion gap metabolic acidosis, resolved. 6. Acute pancreatitis. 7. Acute alcohol induced hepatitis. 8. Profound electrolyte disturbance, likely related to underlying refeeding syndrome, possible sepsis secondary to aspiration. 9. History of chronic alcohol abuse. 10.History of seizure disorder. 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 PLAN: The patient will have another daily interrupted interruption of sedation today. Hopefully he will do better. The patient's sedation will be held. If he looks stable, we will attempt a spontaneous breathing trial at PSV 5, CPAP of 5. Labs, x-rays and medications are reviewed. Microbiologic studies are thus far negative. He failed his daily interruption of sedation yesterday. We will continue to follow closely. Overall prognosis is very guarded. 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 We will make sure that we contact his mother to find out the dose or the pharmacy to find out a dose. CRITICAL CARE TIME: 38 minutes. MMFARSHADL / PARASN: [id number] /
[2019-02-21] MEDS: CHLORHEXIDINE GLUCONATE 15 ML CUP MUCOUS MEM SCH ×2 (09:34→21:31)
[2019-02-21] MEDS: PANTOPRAZOLE 40 MG/10 ML VIAL IVP SCH (09:35)
[2019-02-21] MEDS: THIAMINE 100 MG TAB PO SCH ×2 (11:50→18:14)
[2019-02-21 12:08] LABS: Glucose,Whole Blood 134 mg/dL (75-99)
--- NOTE | 2019-02-21 15:02 | P.PN ---
Subjective Progress Note Date: 02/21/19 Principal diagnosis: Acute respiratory failure Patient seen and examined. No acute events overnight. Patient continues to be on the ventilator. Tidal volume 450, rate of 12, FiO2 40 and PEEP of 5. He is on propofol 70 mcg/kg/m. Failed vent liberation trial yesterday. Objective - Vital Signs Vital signs: Vital Signs Temp 100.7 F H 02/21/19 12:00 Pulse 125 H 02/21/19 14:00 Resp 15 02/21/19 14:00 BP 154/106 02/21/19 14:00 Pulse Ox 94 L 02/21/19 14:00 Intake & Output 02/20/19 02/21/19 02/21/19 18:59 06:59 18:59 Intake Total 3488.505 3210.508 1924.593 Output Total 440 1695 2021 Balance 3048.505 1515.508 -97.407 Weight 71.3 kg 71.3 kg Intake: IV 2750 2090.0 1060 0.9 @ 100 200 Magnesium Sulfate-D5w Pmx 300 1 gm In Dextrose/Water 1 100ml.bag @ 100 mls/hr IVPB Q1H [facility] Rx#: [id number] NS 590 160 Piperacillin-Tazobactam 3 200 50.0 100 .375 gm In Sodium Chloride 0.9% 100 ml @ 25 mls/hr IVPB Q8H [facility] Rx#: [id number] Potassium Chloride 10 meq 500 In Water For Injection 1 100ml.bag @ 100 mls/hr IVPB Q1HR [facility] Rx#: [id number] Potassium Phosphate 10 100 mmol In Sodium Chloride 0 .9% 250 ml @ 125 mls/hr IV Q2H [facility] Rx#:[id number] Potassium Phosphate 10 750 250 mmol In Sodium Chloride 0 .9% 250 ml @ 125 mls/hr IV Q2H [facility] Rx#:[id number] Sodium Chloride 0.45% 1, 700 1200 800 000 ml @ 100 mls/hr IV . Q10H [facility] Rx#:[id number] Intake, IV Titration 303.505 295.508 125.593 Amount Propofol 1,000 mg In 303.505 295.508 125.593 Empty Bag 1 bag @ Titrate IV .Q0M [facility] Rx#: [id number] Tube Feeding 325 675 499 Other 110 150 240 Output: Urine 440 1695 2022 Other: Voiding Method Indwelling Catheter Indwelling Catheter Indwelling Catheter # Bowel Movements 1 - Exam General: [non toxic], [intubated], [appears at stated age] Derm: [warm], [dry] Head: [atraumatic], [normocephalic], [symmetric] Eyes: [EOMI], [no lid lag], [anicteric sclera] Mouth: [no lip lesion], [mucus membranes moist] Cardiovascular: [S1S2 reg], [tachycardia], [positive DP pulse bilateral] Lungs: [Coarse breath sounds bilateral], [no rhonchi, no rales] , [no accessory muscle use] Abdominal: [soft], [ nontender to palpation], [no guarding], [distended and hepatomegaly] Ext: [no gross muscle atrophy], [no edema], [no contractures] Neuro: [Unable to determine] Psych: [Unable to determine] - Labs CBC & Chem 7: 02/21/19 04:14 02/21/19 14:03 Labs: Abnormal Lab Results - Last 24 Hours (Table) 02/20/19 02/21/19 02/21/19 Range/Units 18:33 00:17 04:14 RBC (4.30-5.90) m/uL Hgb (13.0-17.5) gm/dL Hct (39.0-53.0) % MCV (80.0-100.0) fL RDW (11.5-15.5) % Plt Count (150-450) k/uL ABG pCO2 (35-45) mmHg ABG pO2 (83-108) mmHg ABG HCO3 (21-25) mmol/L ABG Total CO2 (19-24) mmol/L Potassium 3.0 L (3.5-5.1) mmol/L Chloride 111 H (98-107) mmol/L Glucose 112 H (74-99) mg/dL POC Glucose (mg/dL) 149 H 169 H (75-99) mg/dL Calcium 6.9 L (8.4-10.2) mg/dL Total Bilirubin 5.8 H (0.2-1.3) mg/dL AST 317 H (17-59) U/L ALT 109 H (21-72) U/L Alkaline Phosphatase 175 H (38-126) U/L Ammonia (<30) umol/L Total Protein 5.6 L (6.3-8.2) g/dL Albumin 2.9 L (3.5-5.0) g/dL 02/21/19 02/21/19 02/21/19 Range/Units 04:14 04:14 04:20 RBC 2.67 L (4.30-5.90) m/uL Hgb 9.2 L (13.0-17.5) gm/dL Hct 27.4 L (39.0-53.0) % MCV 102.6 H (80.0-100.0) fL RDW 15.7 H (11.5-15.5) % Plt Count 97 L D (150-450) k/uL ABG pCO2 46 H (35-45) mmHg ABG pO2 72 L (83-108) mmHg ABG HCO3 27 H (21-25) mmol/L ABG Total CO2 29 H (19-24) mmol/L Potassium (3.5-5.1) mmol/L Chloride (98-107) mmol/L Glucose (74-99) mg/dL POC Glucose (mg/dL) (75-99) mg/dL Calcium (8.4-10.2) mg/dL Total Bilirubin (0.2-1.3) mg/dL AST (17-59) U/L ALT (21-72) U/L Alkaline Phosphatase (38-126) U/L Ammonia 93 H (<30) umol/L Total Protein (6.3-8.2) g/dL Albumin (3.5-5.0) g/dL 02/21/19 02/21/19 02/21/19 Range/Units 06:16 08:53 11:47 RBC (4.30-5.90) m/uL Hgb (13.0-17.5) gm/dL Hct (39.0-53.0) % MCV (80.0-100.0) fL RDW (11.5-15.5) % Plt Count (150-450) k/uL ABG pCO2 (35-45) mmHg ABG pO2 (83-108) mmHg ABG HCO3 (21-25) mmol/L ABG Total CO2 (19-24) mmol/L Potassium 3.2 L (3.5-5.1) mmol/L Chloride (98-107) mmol/L Glucose (74-99) mg/dL POC Glucose (mg/dL) 145 H 134 H (75-99) mg/dL Calcium (8.4-10.2) mg/dL Total Bilirubin (0.2-1.3) mg/dL AST (17-59) U/L ALT (21-72) U/L Alkaline Phosphatase (38-126) U/L Ammonia (<30) umol/L Total Protein (6.3-8.2) g/dL Albumin (3.5-5.0) g/dL Microbiology - Last 24 Hours (Table) 02/18/19 09:45 Blood Culture - Preliminary Blood No Growth after 72 hours 02/18/19 09:28 Blood Culture - Preliminary Blood No Growth after 72 hours 02/18/19 00:00 Blood Culture - Preliminary Blood No Growth after 72 hours 02/17/19 23:45 Blood Culture - Preliminary Blood No Growth after 72 hours Assessment and Plan Assessment: Assessment and Plan Acute respiratory failure Aspiration pneumonia Acute metabolic encephalopathy from alcohol intoxication Anion gap metabolic acidosis likely from starvation ketoacidosis and alcohol use Hypokalemia, hypocalcemia, hypophosphatemia Macrocytic anemia Transaminitis Elevated lipase History of seizure disorder From DTs and aspiration pneumonia. Full ventilator support. Management as per pulmonology. Continue IV antibiotics for pneumonia. Wean off vent as necessary. Follow pulmonology consult. Initially started on ceftriaxone and azithromycin for concerns of community- acquired pneumonia. Switched by pulmonology to levofloxacin and Zosyn IV for coverage and aspiration pneumonia. Continue DuoNeb as needed for shortness of breath and wheezing. Aspiration precautions. Elevate head of bed. Chest x-ray this morning shows stable infiltrate. Sputum culture and blood culture prelim negative at 72 hours. Follow sputum culture. Follow blood culture. Maintain O2 saturation greater than 92. Follow pulmonology consult. Blood alcohol level 370 on admission. CIWA protocol. Ativan IV as needed. Seizure and fall precautions. Keep nothing by mouth. Resolved. Continue normal saline at 100 mL/h. Daily BMP. Likely secondary to alcohol abuse. Replace potassium via protocol. Replace lata cium via IV. Phosphorus replacement via protocol. Hemoglobin 10.7-10.1-9.2 with MCV 102.6. Likely secondary to alcohol abuse. Daily CBC. Total bilirubin 5.3 to 5.4 to 6.5 to 5.8, AST 377 to 282 to 344 to 317, LT 133 to 111 to 113 to 109, alkaline phosphatase 129 to 134 to 157 to 175. Likely li jl damage secondary to alcohol abuse. Daily CMP. Lipase 676 to 479. Possibly acute pancreatitis. Patient unable to provide history. Continue IVF. Keep nothing by mouth for now. Adequate pain control. Follow lipase in the morning. Patient intubated, continue full vent support. Vent liberation trial as tolerated. Patient is pending clinical improvement.
[2019-02-21] MEDS: SODIUM CHLORIDE 0.45% 1,000 ML IV SCH (15:42)
[2019-02-21 18:21] LABS: Glucose,Whole Blood 140 mg/dL (75-99)
[2019-02-21 23:50] LABS: Glucose,Whole Blood 152 mg/dL (75-99)
[2019-02-22] MEDS: HYDROmorphone 1 MG/ML 1 ML SYRINGE IVP PRN ×8 (00:17→21:53)
[2019-02-22] MEDS: SODIUM CHLORIDE 0.45% 1,000 ML IV SCH ×3 (00:19→22:08)
[2019-02-22] MEDS: PROPOFOL 1,000 MG in EMPTY BAG 1 BAG IV SCH ×3 (02:53→21:43)
[2019-02-22] MEDS: PIPERACILLIN-TAZOBACTAM 3.375 GM in SODIUM CHLORIDE 0.9% 100 ML IVPB SCH ×3 (03:04→19:02)
[2019-02-22] MEDS: IPRATROPIUM-ALBUTEROL 3 ML NEB INHALATION SCH ×6 (03:26→23:31)
[2019-02-22] MEDS: LORazepam 2 MG/ML INJ IV PRN ×3 (03:45→12:43)
[2019-02-22 04:32] LABS: Anisocytosis Slight; Basophils # (A) 0.1 k/uL (0-0.2); Basophils % (A) 1 %; Eosinophils # (A) 0.1 k/uL (0-0.7); Eosinophils % (A) 2 %; HCT 26.3 % (39.0-53.0); HGB 8.8 gm/dL (13.0-17.5); Lymphocytes # (A) 1.5 k/uL (1.0-4.8); Lymphocytes % (A) 24 %; MCH 34.3 pg (25.0-35.0); MCHC 33.5 g/dL (31.0-37.0); MCV 102.5 fL (80.0-100.0); Macrocytosis Slight; Mean Platelet Volume 8.7; Monocytes # (A) 0.5 k/uL (0-1.0); Monocytes % (A) 8 %; Neutrophils # (A) 3.9 k/uL (1.3-7.7); Neutrophils % (A) 63 %; Platelet Count 145 k/uL (150-450); Poikilocytosis Slight; RBC 2.57 m/uL (4.30-5.90); RDW 17.3 % (11.5-15.5); WBC 6.3 k/uL (3.8-10.6)
[2019-02-22 04:52] LABS: ALT 105 U/L (21-72); AST 227 U/L (17-59); Albumin 2.6 g/dL (3.5-5.0); Alkaline Phosphatase 193 U/L (38-126); Anion Gap 2 mmol/L; Blood Urea Nitrogen 9 mg/dL (9-20); Calcium 7.5 mg/dL (8.4-10.2); Carbon Dioxide 34 mmol/L (22-30); Chloride 110 mmol/L (98-107); Glucose 109 mg/dL (74-99); Magnesium 1.8 mg/dL (1.6-2.3); Phosphorus 2.3 mg/dL (2.5-4.5); Potassium 3.2 mmol/L (3.5-5.1); Sodium 146 mmol/L (137-145); Total Bilirubin 4.2 mg/dL (0.2-1.3)
[2019-02-22] MEDS: INSULIN ASPART (NovoLOG) 100 UNIT/ML VIAL SQ SCH ×3 (05:44→18:56)
[2019-02-22 05:59] LABS: Glucose,Whole Blood 123 mg/dL (75-99)
[2019-02-22] MEDS: POTASSIUM BICARBONATE/CIT AC 20 MEQ TABLET.EFF NG-TUBE SCH ×4 (06:06→17:22)
[2019-02-22 06:07] LABS: ABG PH 7.46 (7.35-7.45)
[2019-02-22] MEDS: MAGNESIUM SULFATE-D5W PMX 1 GM in DEXTROSE/WATER 1 100ML.BAG IVPB SCH ×2 (06:07→07:10)
[2019-02-22 06:08] LABS: ABG Base Excess 11.2 mmol/L; ABG HCO3 35 mmol/L (21-25); ABG PCO2 49 mmHg (35-45); ABG PO2 78 mmHg (83-108); ABG TCO2 37 mmol/L (19-24)
--- NOTE | 2019-02-22 09:04 | XR ---
EXAMINATION TYPE: XR chest 1V portable DATE OF EXAM: 02/22/2019 COMPARISON: Prior chest x-ray 02/21/2019 HISTORY: Shortness of breath, intubated TECHNIQUE: Single frontal view of the chest is obtained. FINDINGS: Endotracheal tube and NG tube are overlying appropriate positions. There is no evident pne umothorax. Lung volumes are low. Patchy bilateral density persists. There is no evident pneumothorax or sizable effusion. Heart size is stable. There are overlying cardiac leads. IMPRESSION: Similar findings to prior exam.
[2019-02-22] MEDS: CHLORHEXIDINE GLUCONATE 15 ML CUP MUCOUS MEM SCH ×2 (09:37→21:54)
[2019-02-22] MEDS: PANTOPRAZOLE 40 MG/10 ML VIAL IVP SCH (09:37)
--- NOTE | 2019-02-22 10:20 | PN ---
PROGRESS NOTE DATE OF SERVICE: February 22, 2019 This is a 38-year-old male who was admitted back on February 17. He came with alcohol withdrawal syndrome as well as aspiration pneumonia. He was intubated for respiratory failure on the . We have attempted daily interruptions of sedation and evaluating the patient for possible spontaneous breathing trial, but each time, the patient becomes very agitated. He has a significant sympathetic discharge with tachycardia, diaphoresis, tachypnea, and hypertension. Today we will try again. Currently, we have been able to reduce his propofol level down to 20 mcg/kg per minute. He is also receiving 0.9 at 10 mL an hour and half-normal saline IV 100 mL an hour. He is also receiving Vital high-protein at 57 with a goal of 57 mL an hour. He remains ventilated on the volume assist-control mode rate of 12, tidal volume 450, FiO2 of 40%, PEEP of 5. Arterial blood gases show a pO2 of 78, a pCO2 49, and pH is 7.46. Blood gases consistent with a metabolic alkalosis. Other than that, he has had an uneventful night. His ammonia level has come down. Current vital signs are reviewed. Temperature is 98.6, heart rate 89, respiratory rate 12, blood pressure 115/76, mean 89, and saturations are 99% on FiO2 40% PEEP of 5. Appears in no acute distress. Currently sedated. HEENT examination is grossly unremarkable. There is an orally placed endotracheal tube and NG tube. NECK: Supple. Full range of motion. No adenopathy or thyromegaly. CARDIOVASCULAR: Examination reveals regular rhythm and rate. Heart rate in mid 80s. S1, S2 normal. Heart sounds are distant. LUNGS: Reveal a few scattered rhonchi. No wheezes or crackles. Breath sounds equal. ABDOMEN: Distended. Bowel sounds are noted. Liver appears to be enlarged. EXTREMITIES: Are intact. No edema to speak of. SKIN: Shows areas of ecchymoses. NEUROLOGIC: Examination is difficult to assess. Currently, microbiologic studies are all negative. Labs are reviewed. White count 6.3, hemoglobin 8.8, hematocrit 26.3, platelet count 145,000. Sodium 146, potassium 3.2, chloride 110, CO2 of 34. Anion gap is 2. BUN and creatinine were 9 and 0.28. His calcium 7.5, phosphorus 2.3, magnesium 1.8, total bilirubin 4.2, AST 227, ALT 105. Ammonia level was down to 49. Albumin 2.6. A chest x-ray was done. It shows low lung volumes and patchy bilateral basilar infiltrates noted. This is consistent with pneumonia and/or atelectasis. Medications are reviewed. ASSESSMENT: 1. Acute hypoxemic respiratory failure secondary to aspiration pneumonia and acute alcohol intoxication with alcohol withdrawal syndrome and possible rum fit (alcoholic seizures). 2. Status post intubation and mechanical ventilation on February 18 for respiratory failure as above. The patient having failed DIS on numerous days. 3. History of acute alcohol intoxication. 4. Metabolic encephalopathy. 5. Anion gap metabolic acidosis, resolved. 6. Acute pancreatitis. 7. Acute alcohol induced hepatitis. 8. Profound electrolyte disturbance, likely related to underlying refeeding syndrome. 9. Sepsis secondary to aspiration pneumonia. 10.History of chronic alcohol abuse. 11.History of seizure disorder. 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 PLAN: The patient will again have an interruption of sedation. Hopefully we get him toward weaning. His Diprivan dose has been weaned down to 20 mcg/kg per minute. He apparently was on seizure medication but was not taking them. He was apparently supposed to be on both Depakote and Keppra. 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 We talked to his family about that. We will continue to follow closely. Daily x-rays and labs. Microbiologic studies are all negative. He is being nourished. Additional recommendations and suggestions are forthcoming. Should he not do well today, we might consider a midline or PICC line catheter and/or an art line on him. CRITICAL CARE TIME: 35 minutes. MMODL / IJN: [id number] /
[2019-02-22 12:00] LABS: Glucose,Whole Blood 113 mg/dL (75-99)
[2019-02-22] MEDS: THIAMINE 100 MG TAB PO SCH ×2 (12:57→17:27)
--- NOTE | 2019-02-22 13:22 | P.PN ---
Subjective Progress Note Date: 02/22/19 Principal diagnosis: Acute hypoxic respiratory failure Patient was seen and examined. No acute events overnight. Patient continues to be on the ventilator. Tidal volume 450, rate of 12, FiO2 40 and PEEP of 5. Reports of agitation with vent liberation trials. Propofol decreased to 20 mcg/kg/m. Tube feeds running without complication. Objective - Vital Signs Vital signs: Vital Signs Temp 98.6 F 02/22/19 08:00 Pulse 108 H 02/22/19 11:59 Resp 11 L 02/22/19 08:30 BP 115/76 02/22/19 08:30 Pulse Ox 99 02/22/19 08:30 Intake & Output 02/21/19 02/22/19 02/22/19 18:59 06:59 18:59 Intake Total 2726.909 2577.705 425.425 Output Total 2532 1090 130 Balance 273.293 4042.705 295.425 Weight 71.3 kg 71.3 kg Intake: IV 1540 1640 240 NS 240 240 40 Piperacillin-Tazobactam 3 100 200 .375 gm In Sodium Chloride 0.9% 100 ml @ 25 mls/hr IVPB Q8H [facility] Rx#: [id number] Sodium Chloride 0.45% 1, 1200 1200 200 000 ml @ 100 mls/hr IV . Q10H [facility] Rx#:[id number] Intake, IV Titration 189.909 163.705 41.425 Amount Propofol 1,000 mg In 189.909 163.705 41.425 Empty Bag 1 bag @ Titrate IV .Q0M [facility] Rx#: [id number] Tube Feeding 727 684 114 Other 270 90 30 Output: Urine 2532 1090 130 Other: Voiding Method Indwelling Catheter Indwelling Catheter # Bowel Movements 1 1 - Exam General: [non toxic], [intubated], [appears at stated age] Derm: [warm], [dry] Head: [atraumatic], [normocephalic], [symmetric] Eyes: [EOMI], [no lid lag], [anicteric sclera] Mouth: [no lip lesion], [mucus membranes moist] Cardiovascular: [S1S2 reg], [tachycardia], [positive DP pulse bilateral] Lungs: [Coarse breath sounds bilateral], [no rhonchi, no rales] , [no accessory muscle use] Abdominal: [soft], [ nontender to palpation], [no guarding], [distended and hepatomegaly] Ext: [no gross muscle atrophy], [no edema], [no contractures] Neuro: [Unable to determine] Psych: [Unable to determine] - Labs CBC & Chem 7: 02/22/19 04:02/22/19 11:34 Labs: Abnormal Lab Results - Last 24 Hours (Table) 02/21/19 02/21/19 02/22/19 Range/Units 18:01 23:39 04:19 RBC (4.30-5.90) m/uL Hgb (13.0-17.5) gm/dL Hct (39.0-53.0) % MCV (80.0-100.0) fL RDW (11.5-15.5) % Plt Count (150-450) k/uL ABG pH (7.35-7.45) ABG pCO2 (35-45) mmHg ABG pO2 (83-108) mmHg ABG HCO3 (21-25) mmol/L ABG Total CO2 (19-24) mmol/L Sodium 146 H (137-145) mmol/L Potassium 3.2 L (3.5-5.1) mmol/L Chloride 110 H (98-107) mmol/L Carbon Dioxide 34 H (22-30) mmol/L Creatinine 0.28 L (0.66-1.25) mg/dL Glucose 109 H (74-99) mg/dL POC Glucose (mg/dL) 140 H 152 H (75-99) mg/dL Calcium 7.5 L (8.4-10.2) mg/dL Phosphorus 2.3 L (2.5-4.5) mg/dL Total Bilirubin 4.2 H (0.2-1.3) mg/dL AST 227 H (17-59) U/L ALT 105 H (21-72) U/L Alkaline Phosphatase 193 H (38-126) U/L Ammonia (<30) umol/L Total Protein 5.0 L (6.3-8.2) g/dL Albumin 2.6 L (3.5-5.0) g/dL 02/22/19 02/22/19 02/22/19 Range/Units 04:19 04:19 05:38 RBC 2.57 L (4.30-5.90) m/uL Hgb 8.8 L (13.0-17.5) gm/dL Hct 26.3 L (39.0-53.0) % MCV 102.5 H (80.0-100.0) fL RDW 17.3 H (11.5-15.5) % Plt Count 145 L (150-450) k/uL ABG pH (7.35-7.45) ABG pCO2 (35-45) mmHg ABG pO2 (83-108) mmHg ABG HCO3 (21-25) mmol/L ABG Total CO2 (19-24) mmol/L Sodium (137-145) mmol/L Potassium (3.5-5.1) mmol/L Chloride (98-107) mmol/L Carbon Dioxide (22-30) mmol/L Creatinine (0.66-1.25) mg/dL Glucose (74-99) mg/dL POC Glucose (mg/dL) 123 H (75-99) mg/dL Calcium (8.4-10.2) mg/dL Phosphorus (2.5-4.5) mg/dL Total Bilirubin (0.2-1.3) mg/dL AST (17-59) U/L ALT (21-72) U/L Alkaline Phosphatase (38-126) U/L Ammonia 49 H (<30) umol/L Total Protein (6.3-8.2) g/dL Albumin (3.5-5.0) g/dL 02/22/19 02/22/19 Range/Units 06:00 11:59 RBC (4.30-5.90) m/uL Hgb (13.0-17.5) gm/dL Hct (39.0-53.0) % MCV (80.0-100.0) fL RDW (11.5-15.5) % Plt Count (150-450) k/uL ABG pH 7.46 H (7.35-7.45) ABG pCO2 49 H (35-45) mmHg ABG pO2 78 L (83-108) mmHg ABG HCO3 35 H (21-25) mmol/L ABG Total CO2 37 H (19-24) mmol/L Sodium (137-145) mmol/L Potassium (3.5-5.1) mmol/L Chloride (98-107) mmol/L Carbon Dioxide (22-30) mmol/L Creatinine (0.66-1.25) mg/dL Glucose (74-99) mg/dL POC Glucose (mg/dL) 113 H (75-99) mg/dL Calcium (8.4-10.2) mg/dL Phosphorus (2.5-4.5) mg/dL Total Bilirubin (0.2-1.3) mg/dL AST (17-59) U/L ALT (21-72) U/L Alkaline Phosphatase (38-126) U/L Ammonia (<30) umol/L Total Protein (6.3-8.2) g/dL Albumin (3.5-5.0) g/dL Microbiology - Last 24 Hours (Table) 02/18/19 09:45 Blood Culture - Preliminary Blood No Growth after 96 hours 02/18/19 09:28 Blood Culture - Preliminary Blood No Growth after 96 hours 02/18/19 00:00 Blood Culture - Preliminary Blood No Growth after 96 hours 02/17/19 23:45 Blood Culture - Preliminary Blood No Growth after 96 hours Assessment and Plan Assessment: Assessment and Plan Acute respiratory failure Hyperammonemia Aspiration pneumonia Acute metabolic encephalopathy from alcohol intoxication Anion gap metabolic acidosis likely from starvation ketoacidosis and alcohol use Hypokalemia, hypocalcemia, hypophosphatemia Macrocytic anemia Transaminitis Elevated lipase From DTs and aspiration pneumonia. Full ventilator support. Management as per pulmonology. Continue IV antibiotics for pneumonia. Wean off vent as necessary. Follow pulmonology consult. Elevated ammonia likely secondary to cirrhosis and alcohol abuse. Lactulose one-time dose yesterday. Ammonia from 57-93-49. Daily ammonia level. Consider scheduling lactulose. Initially started on ceftriaxone and azithromycin for concerns of community- acquired pneumonia. Switched by pulmonology to levofloxacin and Zosyn IV for coverage and aspiration pneumonia. Continue DuoNeb as needed for shortness of breath and wheezing. Aspiration precautions. Elevate head of bed. Chest x-ray this morning shows stable infiltrate. Sputum culture and blood culture prelim negative at 96 hours. Follow sputum culture. Follow blood culture. Maintain O2 saturation greater than 92. Follow pulmonology consult. Blood alcohol level 370 on admission. [facility] protocol. Ativan IV as needed. Seizure and fall precautions. Keep nothing by mouth. Resolved. Continue normal saline at 100 mL/h. Daily BMP. Likely secondary to alcohol abuse. Replace potassium via protocol. Replace calcium via IV. Phosphorus replacement via protocol. Hemoglobin 10.7-10.1-9.2-8.8 with MCV 102.5. Likely secondary to alcohol abuse. Daily CBC. Total bilirubin 4.2, AST 227, ALT 105, alkaline phosphatase 193. Likely liver damage secondary to alcohol abuse. Daily CMP. Lipase 676 to 479. Possibly acute pancreatitis. Patient unable to provide history. Continue IVF. Keep nothing by mouth for now. Adequate pain control. Follow lipase in the morning. Patient intubated. Vent liberation trial as tolerated. Patient is pending clinical improvement.
[2019-02-22] MEDS ORDERED: Potassium Replacement Protocol 1 EACH MISC MISCELLANE PRN (13:44)
[2019-02-22] MEDS ORDERED: POTASSIUM PHOSPHATE 10 MMOL in SODIUM CHLORIDE 0.9% 250 ML IV ONE (14:00)
[2019-02-22 18:44] LABS: Glucose,Whole Blood 117 mg/dL (75-99)
[2019-02-22] MEDS: LISINOPRIL 20 MG TAB PO SCH (21:55)
[2019-02-22] MEDS: levETIRAcetam IV 1,000 MG in SALINE 1 100ML.BAG IVPB SCH (21:55)
[2019-02-22] MEDS ORDERED: POTASSIUM BICARBONATE/CIT AC 20 MEQ TABLET.EFF NG-TUBE SCH (22:00)
[2019-02-23 00:09] LABS: Glucose,Whole Blood 113 mg/dL (75-99)
[2019-02-23] MEDS: INSULIN ASPART (NovoLOG) 100 UNIT/ML VIAL SQ SCH ×4 (00:17→18:25)
[2019-02-23] MEDS: PROPOFOL 1,000 MG in EMPTY BAG 1 BAG IV SCH ×3 (03:01→09:55)
[2019-02-23] MEDS: PIPERACILLIN-TAZOBACTAM 3.375 GM in SODIUM CHLORIDE 0.9% 100 ML IVPB SCH ×3 (03:02→18:19)
[2019-02-23] MEDS: IPRATROPIUM-ALBUTEROL 3 ML NEB INHALATION SCH ×5 (03:15→19:23)
[2019-02-23] MEDS: HYDROmorphone 1 MG/ML 1 ML SYRINGE IVP PRN ×5 (03:20→20:10)
[2019-02-23] MEDS: LORazepam 2 MG/ML INJ IV PRN ×3 (05:28→22:30)
[2019-02-23 05:50] LABS: Anion Gap 4 mmol/L; Blood Urea Nitrogen 10 mg/dL (9-20); Calcium 7.9 mg/dL (8.4-10.2); Carbon Dioxide 35 mmol/L (22-30); Chloride 103 mmol/L (98-107); Glucose 103 mg/dL (74-99); Potassium 4.1 mmol/L (3.5-5.1); Sodium 142 mmol/L (137-145)
[2019-02-23 05:53] LABS: ABG Base Excess 10.8 mmol/L; ABG HCO3 35 mmol/L (21-25); ABG Oxygen Saturation 97.6 % (94-97); ABG PCO2 48 mmHg (35-45); ABG PH 7.47 (7.35-7.45); ABG PO2 82 mmHg (83-108); ABG TCO2 36 mmol/L (19-24)
[2019-02-23 05:59] LABS: Anisocytosis Slight; HCT 26.5 % (39.0-53.0); HGB 8.3 gm/dL (13.0-17.5); Hypochromasia Slight; MCH 33.3 pg (25.0-35.0); MCHC 31.4 g/dL (31.0-37.0); MCV 106.1 fL (80.0-100.0); Macrocytosis Moderate; Mean Platelet Volume 8.2; Platelet Count 248 k/uL (150-450); RDW 16.7 % (11.5-15.5); WBC 6.4 k/uL (3.8-10.6)
[2019-02-23 06:32] LABS: Basophils # (M) 0.06 k/uL (0-0.2); Eosinophils # (M) 0.13 k/uL (0-0.7); Lymphocytes # (M) 1.47 k/uL (1.0-4.8); Myelocytes # (M) 0.06 k/uL (0); Myelocytes % 1 %; Neutrophils # (M) 3.84 k/uL (1.3-7.7); Neutrophils % (M) 60 %; Nucleated Red Blood Cells 0 /100 WBC (0-0); Polychromasia Present; Total Cells Counted 200
[2019-02-23 06:39] LABS: Glucose,Whole Blood 124 mg/dL (75-99)
[2019-02-23] MEDS: SODIUM CHLORIDE 0.45% 1,000 ML IV SCH ×2 (06:59→18:19)
[2019-02-23] MEDS: MAGNESIUM SULFATE-D5W PMX 1 GM in DEXTROSE/WATER 1 100ML.BAG IVPB SCH ×2 (07:03→09:54)
--- NOTE | 2019-02-23 07:18 | XR ---
EXAMINATION TYPE: XR chest 1V portable DATE OF EXAM: 02/23/2019 COMPARISON: Prior chest x-ray 02/22/2019 HISTORY: Shortness of breath TECHNIQUE: Single frontal view of the chest is obtained. FINDINGS: Endotracheal tube and NG tube are overlying appropriate position. No evident pneumothorax or sizable effusion. Patchy bilateral density present within the lungs. Lung volumes are low. Heart s ize is stable. IMPRESSION: No significant interval change. Correlate for pneumonia, atelectasis
--- NOTE | 2019-02-23 09:26 | PN ---
PROGRESS NOTE DATE OF SERVICE: 02/23/2019 This is a 38-year-old male who was admitted back on February 17. He came with alcohol withdrawal syndrome as well as aspiration pneumonia. He was intubated for respiratory failure on February 18. Each day since I have been on duty here in the ICU, we have done a daily interruption of sedation with attempts spontaneous breathing trial. Unfortunately, each time, the patient becomes very agitated. He has significant sympathetic discharge with tachycardia, diaphoresis, tachypnea, and hypertension. Hence, we had to re-sedate him. We are going to try that again today. If he does not succeed, he may need a tracheostomy and PEG tube placement. Currently, he is still on the ventilator. He is on the volume assist-control mode rate of 12, tidal volume 450, FiO2 of 40%, PEEP of 5. Most recent blood gases show PO2 of 82, pCO2 of 48, pH of 7.47. Appears in no acute distress. Currently also, he is on Diprivan at 50 mcg/kg per per minute. Also on half-normal saline 100 mL an hour and Vital high- protein at 57 with a goal of 57 mL an hour. Microbiology thus far has been all negative. When he does wake up, we are going to attempt PSV 8, CPAP of 5. Chest x-ray is improved. Current vital signs are reviewed. Temperature is 98.4, heart rate 84, respiratory rate 12, blood pressure 131/89 mean 103, saturations are 99% on 40% FiO2 and 5 of PEEP. Appears in no acute distress, currently sedated. HEENT: Examination is grossly unremarkable. Mucous membranes are moist. There is an orally placed endotracheal tube and NG tube. NECK: Supple. Full range of motion. No adenopathy or thyromegaly. Neck veins are flat. CARDIOVASCULAR: Examination reveals regular rhythm and rate. Heart rate in mid 80s. S1, S2 normal. No murmur noted. No S3, S4. Heart sounds are distant. LUNGS: Reveal a few scattered rhonchi. Breath sounds equal bilaterally. No wheezes or crackles. ABDOMEN: Soft, bowel sounds are heard. EXTREMITIES: Intact. No cyanosis, clubbing, or significant edema. SKIN: Reveals a few areas of ecchymoses. We believe the patient fell. NEUROLOGIC: Examination could not be adequately assessed because of his level of sedation. Chest x-ray shows no significant interval change. There may be some patchy infiltrates and some atelectasis. LABS: Reviewed. White count 6.4, hemoglobin 8.3, hematocrit 26.5, platelet count 248,000. Sodium, potassium normal. Chloride is 103, CO2 of 35. BUN and creatinine were 10 and 0.28. Calcium 7.9, magnesium 1.9. Microbiology is all negative including blood, urine, and sputum. MEDICATIONS: Reviewed. The patient will continue on Zosyn from one day more. The rest of the medications all appeared normal. We did resume the patient's Depakote and Keppra. ASSESSMENT: 1. Acute hypoxemic respiratory failure secondary to aspiration pneumonia and acute alcohol intoxication with alcohol withdrawal syndrome and possible alcoholic seizures (Rum Fits). 2. Status post intubation and mechanical ventilation on February 18 for respiratory failure as above. The patient has failed daily interruptions of sedation. 3. History of acute alcohol intoxication. 4. Metabolic encephalopathy. 5. Anion gap metabolic acidosis, resolved. 6. Acute pancreatitis, resolved. 7. Acute alcohol-induced hepatitis. 8. Profound electrolyte disturbance, likely related to re-feeding syndrome. 9. Sepsis secondary to aspiration pneumonia. 10.History of chronic alcohol abuse. 11.History of seizure disorder. 12.Previous history of head trauma with posttraumatic seizure disorder. 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 PLAN: The patient will have another daily interruption of sedation. Will try PSV 8, CPAP of 5. Our goal is to get the patient extubated. Depakote and Keppra was added back. If the patient does not tolerate this today, will plan on doing a trach and PEG tomorrow. Additional recommendations and suggestions are forthcoming. Prognosis is guarded. Microbiologic studies are negative. He will be on Zosyn for one day more. The patient will continue on his nourishment severe enteral nutrition. Critical care time is 37 minutes. MMODL / IJN: [id number] / [email or web address]
[2019-02-23] MEDS: PANTOPRAZOLE 40 MG/10 ML VIAL IVP SCH (09:53)
[2019-02-23] MEDS: CHLORHEXIDINE GLUCONATE 15 ML CUP MUCOUS MEM SCH (09:53)
[2019-02-23] MEDS: levETIRAcetam IV 1,000 MG in SALINE 1 100ML.BAG IVPB SCH ×2 (09:54→19:50)
[2019-02-23 11:55] LABS: Glucose,Whole Blood 113 mg/dL (75-99)
[2019-02-23] MEDS: THIAMINE 100 MG TAB PO SCH ×2 (12:51→18:19)
--- NOTE | 2019-02-23 13:38 | P.PN ---
Subjective Progress Note Date: 02/23/19 The patient is a 38 yo M w/ a PMH of HTN, seizure disorder, and EtOH abuse who was transferred to the ED from [facility] for altered mentation and pneumonia. History obtained from EMR and transfer records since patient unable to provide history at this time. The patient was apparently brought to the ED at [facility] by his after she found him inebriated and with chest and facial trauma. At [facility], patient was noted to have pneumonia along with an alcohol level of 500+ and he was transferred to [place] ED. The patient was intoxicated during examination and unable to provide history. Upon admission to ED, he was tachycardic to 130 w/ SpO2 92-95% on NC 6L. He underwent an extensive evaluation w/ Hgb 11.7, Na 151, K 3.3, CO2 13, A-Gap 29, AST 353, w/ serum alcohol level 370. He is being admitted to the medicine service to the ICU for further management. The patient was subsequently intubated. He was started on IV abxs w/ Zosyn. The patient was noted to have hyperammonemia and was placed on lactulose therapy. The patient's home anti-seizure medications were also resumed. He underwent daily interruption of sedation but had significant sympathetic discharge and thereby couldn't be extubated intially. He however underwent anything extubation trial on 02/23/19 and was extubated successfully. The patient was seen and examined at the bedside in the MICU. He was lethargic and not following commands. Unable to elicit any complaints. Objective - Vital Signs Vital signs: Vital Signs Temp 97.9 F 02/23/19 12:00 Pulse 112 H 02/23/19 12:00 Resp 18 02/23/19 12:00 BP 164/104 02/23/19 12:00 Pulse Ox 98 02/23/19 12:00 Intake & Output 02/22/19 02/23/19 02/23/19 18:59 06:59 18:59 Intake Total 2496.000 2351.431 1135.040 Output Total 1515 1800 900 Balance 981.000 551.431 235.040 Weight 71.3 kg Intake: IV 940 1320 650 NS 140 120 50 Piperacillin-Tazobactam 3 200 100 100 .375 gm In Sodium Chloride 0.9% 100 ml @ 25 mls/hr IVPB Q8H [facility] Rx#: [id number] Sodium Chloride 0.45% 1, 600 1100 500 000 ml @ 100 mls/hr IV . Q10H [facility] Rx#:[id number] Intake, IV Titration 950.000 257.431 257.040 Amount Magnesium Sulfate-D5w Pmx 100 1 gm In Dextrose/Water 1 100ml.bag @ 100 mls/hr IVPB Q1H [facility] Rx#: [id number] Potassium Phosphate 10 250 mmol In Sodium Chloride 0 .9% 250 ml @ 125 mls/hr IV ONCE ONE Rx#:[id number] Propofol 1,000 mg In 100.000 157.431 57.040 Empty Bag 1 bag @ Titrate IV .Q0M [facility] Rx#: [id number] Sodium Chloride 0.45% 1, 600 100 000 ml @ 100 mls/hr IV . Q10H [facility] Rx#:[id number] levETIRAcetam IV 1,000 mg 100 In Saline 1 100ml.bag @ 400 mls/hr IVPB Q12HR [facility] Rx#:[id number] Oral 0 Tube Feeding 456 684 228 Other 150 90 Output: Urine 1515 1800 900 Other: Voiding Method Indwelling Catheter Indwelling Catheter Indwelling Catheter - Exam General: Non-toxic, in no acute distress, lethargic, appears stated age, normal weight HEENT: Nasal bridge dry scabs, anicteric sclerae, moist conjunctiva, PERRLA Cardiovascular: S1/S2 wnl, tachycardic, no murmurs, rubs, or gallops Lungs: Scattered coarse breath sunds, normal respiratory effort, no accessory muscle use Abdominal: Soft, non-tender, non-distended, no guarding, rebound, or rigidity Skin: Warm, dry Extremities: No edema or contractures Neuro: Grossly moving all extremities, lethargic, not following commands - Labs CBC & Chem 7: 02/23/19 04:35 02/23/19 04:35 Labs: Abnormal Lab Results - Last 24 Hours (Table) 02/22/19 02/23/19 02/23/19 Range/Units 18:42 00:07 04:35 RBC (4.30-5.90) m/uL Hgb (13.0-17.5) gm/dL Hct (39.0-53.0) % MCV (80.0-100.0) fL RDW (11.5-15.5) % Myelocytes # (Manual) (0) k/uL ABG pH (7.35-7.45) ABG pCO2 (35-45) mmHg ABG pO2 (83-108) mmHg ABG HCO3 (21-25) mmol/L ABG Total CO2 (19-24) mmol/L ABG O2 Saturation (94-97) % Carbon Dioxide 35 H (22-30) mmol/L Creatinine 0.28 L (0.66-1.25) mg/dL Glucose 103 H (74-99) mg/dL POC Glucose (mg/dL) 117 H 113 H (75-99) mg/dL Calcium 7.9 L (8.4-10.2) mg/dL 02/23/19 02/23/19 02/23/19 Range/Units 04:35 05:47 06:13 RBC 2.50 L (4.30-5.90) m/uL Hgb 8.3 L (13.0-17.5) gm/dL Hct 26.5 L (39.0-53.0) % MCV 106.1 H (80.0-100.0) fL RDW 16.7 H (11.5-15.5) % Myelocytes # (Manual) 0.06 H (0) k/uL ABG pH 7.47 H (7.35-7.45) ABG pCO2 48 H (35-45) mmHg ABG pO2 82 L (83-108) mmHg ABG HCO3 35 H (21-25) mmol/L ABG Total CO2 36 H (19-24) mmol/L ABG O2 Saturation 97.6 H (94-97) % Carbon Dioxide (22-30) mmol/L Creatinine (0.66-1.25) mg/dL Glucose (74-99) mg/dL POC Glucose (mg/dL) 124 H (75-99) mg/dL Calcium (8.4-10.2) mg/dL 02/23/19 Range/Units 11:52 RBC (4.30-5.90) m/uL Hgb (13.0-17.5) gm/dL Hct (39.0-53.0) % MCV (80.0-100.0) fL RDW (11.5-15.5) % Myelocytes # (Manual) (0) k/uL ABG pH (7.35-7.45) ABG pCO2 (35-45) mmHg ABG pO2 (83-108) mmHg ABG HCO3 (21-25) mmol/L ABG Total CO2 (19-24) mmol/L ABG O2 Saturation (94-97) % Carbon Dioxide (22-30) mmol/L Creatinine (0.66-1.25) mg/dL Glucose (74-99) mg/dL POC Glucose (mg/dL) 113 H (75-99) mg/dL Calcium (8.4-10.2) mg/dL Microbiology - Last 24 Hours (Table) 02/18/19 09:45 Blood Culture - Preliminary Blood No Growth after 120 hours 02/18/19 09:28 Blood Culture - Preliminary Blood No Growth after 120 hours 02/18/19 00:00 Blood Culture - Preliminary Blood No Growth after 120 hours 02/17/19 23:45 Blood Culture - Preliminary Blood No Growth after 120 hours Assessment and Plan Plan: Acute hypoxic respiratory failure secondary to aspiration pneumonia and acute alcohol intoxication -S/p extubation on 02/23/19 -C/w post-extubation care -Supplemental oxygen -Aspiration precautions -Pulmonary following Metabolic encephalopathy, multifactorial, w/ hx of acute alcohol intoxication, anion gap acidosis, hyperammonemia, w/ recent withdrawal of sedation -[facility] protocol -Neurochecks -Seizure, aspiration, fall precautions -Folate, Thiamine, MV Aspiration pneumonia -C/w Zosyn for now. -Pulmonary recs appreciated Hx of seizure disorder -C/w Keppra and Depakote Macrocytic anemia -Check B12 levels -C/w Folate, MV Hyperammonemia -C/w Lactulose High anion gap metabolic acidosis - resolved Hypokalemia - resolved Hypernatremia - resolved DVT//GI prophylaxis -IPCDs -Protonix Discussed with: Mother, Sister Anticipated discharge date: 02/26/[address]: Home A total of 30 minutes was spent on the care of this complex patient more than 50% of the time was spent in counseling and care coordination.
[2019-02-23] MEDS ORDERED: LABETALOL 200 MG TAB PO SCH (15:18)
[2019-02-23] MEDS ORDERED: LABETALOL 200 MG TAB PO STA (17:53)
[2019-02-23 17:59] LABS: Glucose,Whole Blood 107 mg/dL (75-99)
[2019-02-23] MEDS: DIVALPROEX SPRINKLE 125 MG CAP.SPRINK PO SCH (19:50)
[2019-02-23] MEDS: LISINOPRIL 20 MG TAB PO SCH (19:50)
[2019-02-23] MEDS: NICOTINE 21MG/24HR PATCH TRANSDERM SCH (19:50)
[2019-02-23] MEDS: LABETALOL 200 MG TAB PO SCH (19:51)
[2019-02-24] MEDS: INSULIN ASPART (NovoLOG) 100 UNIT/ML VIAL SQ SCH ×5 (00:20→21:54)
[2019-02-24] MEDS: HYDROmorphone 1 MG/ML 1 ML SYRINGE IVP PRN ×2 (00:25→05:26)
[2019-02-24 01:46] LABS: Glucose,Whole Blood 113 mg/dL (75-99)
[2019-02-24] MEDS: PIPERACILLIN-TAZOBACTAM 3.375 GM in SODIUM CHLORIDE 0.9% 100 ML IVPB SCH ×2 (02:17→09:42)
[2019-02-24] MEDS: SODIUM CHLORIDE 0.45% 1,000 ML IV SCH ×3 (03:18→21:35)
[2019-02-24 05:22] LABS: Anisocytosis Slight; HCT 27.4 % (39.0-53.0); HGB 8.7 gm/dL (13.0-17.5); Hypochromasia Slight; MCH 33.3 pg (25.0-35.0); MCHC 31.8 g/dL (31.0-37.0); MCV 104.9 fL (80.0-100.0); Macrocytosis Moderate; Mean Platelet Volume 8.8; Platelet Count 355 k/uL (150-450); RBC 2.62 m/uL (4.30-5.90); RDW 16.2 % (11.5-15.5); WBC 8.2 k/uL (3.8-10.6)
[2019-02-24 05:31] LABS: ALT 89 U/L (21-72); AST 122 U/L (17-59); Albumin 2.7 g/dL (3.5-5.0); Alkaline Phosphatase 253 U/L (38-126); Anion Gap 8 mmol/L; Blood Urea Nitrogen 7 mg/dL (9-20); Calcium 8.4 mg/dL (8.4-10.2); Carbon Dioxide 26 mmol/L (22-30); Chloride 104 mmol/L (98-107); Glucose 90 mg/dL (74-99); Magnesium 1.6 mg/dL (1.6-2.3); Phosphorus 2.9 mg/dL (2.5-4.5); Potassium 3.7 mmol/L (3.5-5.1); Sodium 138 mmol/L (137-145); Total Bilirubin 3.3 mg/dL (0.2-1.3); Total Protein 5.2 g/dL (6.3-8.2)
[2019-02-24] MEDS ORDERED: POTASSIUM CHLORIDE ER 20 MEQ TAB.ER PO SCH (06:00)
[2019-02-24] MEDS: MAGNESIUM SULFATE-D5W PMX 1 GM in DEXTROSE/WATER 1 100ML.BAG IVPB SCH ×2 (07:10→08:10)
[2019-02-24] MEDS: IPRATROPIUM-ALBUTEROL 3 ML NEB INHALATION SCH ×4 (07:17→19:16)
[2019-02-24 08:02] LABS: Glucose,Whole Blood 104 mg/dL (75-99)
[2019-02-24] MEDS: levETIRAcetam IV 1,000 MG in SALINE 1 100ML.BAG IVPB SCH ×2 (08:11→21:34)
[2019-02-24] MEDS: LABETALOL 200 MG TAB PO SCH ×2 (08:12→21:37)
[2019-02-24] MEDS: PANTOPRAZOLE 40 MG/10 ML VIAL IVP SCH (08:13)
[2019-02-24] MEDS: NICOTINE 21MG/24HR PATCH TRANSDERM SCH (08:13)
[2019-02-24 09:36] VITALS: BMI 24.7
--- NOTE | 2019-02-24 10:53 | PN ---
PROGRESS NOTE DATE OF SERVICE: 02/24/2019 This is a 38-year-old male who was admitted back on 02/17 secondary to alcohol withdrawal syndrome and aspiration pneumonia. He was intubated for adriel respiratory failure on 02/18. Finally, the patient was extubated yesterday. This was on February 23. We had been doing daily interruptions of sedation, but the patient became very agitated with sympathetic discharge including tachycardia, tachypnea, diaphoresis, and hypertension. Yesterday, during his daily interruption of sedation, he was relatively calm, weaning parameters were excellent and he had a good cuff leak. Hence, he was extubated. The patient is currently on 6 L nasal cannula. He is getting half- normal saline at 100 mL an hour. Microbiologic studies are negative. His antibiotic would be to be discontinued after today's dose. The patient's IVs will be switched to p.o. medications. He could be transferred out to the general medical floor and he does need some physical therapy. The patient has a history of heavy alcohol abuse. Today he is feeling better. Still lethargic. He is also very weak. This is the reason why we are going ahead and do a physical therapy consultation. Currently, his vital signs are reviewed. His temperature is 97.8, his heart rate is 95, respiratory rate 18, blood pressure 129/103, mean 118 and 6 L saturation 94% to 96%. Appears in no acute distress. A bit lethargic and sleepy, but he is appropriate. He does arouse. He is able to the eat and he is eating currently. HEENT examination is grossly unremarkable. Nasal O2 noted. NECK: Supple. Full range of motion. No adenopathy. CARDIOVASCULAR: Examination reveals regular rhythm rate. S1, S2 normal. No S3, S4, or murmur. Heart rate about 95 beats per minute. LUNGS: Reveal mostly clear breath sounds. A few scattered rhonchi. No wheezes or crackles. ABDOMEN: Soft. Bowel sounds are heard. EXTREMITIES: Intact. A bit of mild edema noted. No cyanosis or clubbing. SKIN: Without rash. NEUROLOGIC: Examination appears to be relatively normal. He is a bit slow to respond, but he does respond appropriately. He can move all 4 extremities. LABS: Reviewed. White count 8.2, hemoglobin 8.7, hematocrit 27.4, platelet count 355,000, sodium, potassium, chloride, CO2 all normal. Anion gap is 8. BUN and creatinine were 7 and 0.3. Bilirubin 3.3, AST 122, ALT 89, alkaline phosphate 253 and albumin 2.7. Microbiologic studies including blood, urine, and sputum are all negative. Medications are reviewed. They have been adjusted accordingly. His antiseizure medications were added back. ASSESSMENT: 1. Acute hypoxemic respiratory failure secondary to aspiration pneumonia and acute alcohol intoxication with alcohol withdrawal syndrome and possible alcoholic seizures (Rum Fits). 2. Status post intubation and mechanical ventilation on February 18 for respiratory failure, with extubation on February 23. 3. History of acute alcohol intoxication. 4. Metabolic encephalopathy. 5. Anion gap metabolic acidosis, resolved. 6. Acute pancreatitis, resolved. 7. Acute alcohol-induced hepatitis. 8. Profound electrolyte disturbance, likely related to a week feeding syndrome, improved. 9. Sepsis secondary to aspiration pneumonia. 10.History of chronic alcohol abuse. 11.History of seizure disorder. 12.Previous history of head trauma was post traumatic seizure history. 13.Alcohol-induced bone marrow failure with both anemia and thrombocytopenia. PLAN: Currently the patient is doing relatively well. The patient could be transferred out to the general medical floor. Will DC antibiotics after today's doses. All microbiologic studies are negative. Any IV medications will be switched to p.o. We will have physical therapy see the patient. Labs, x-rays, and medications are all reviewed. MARLENE / DARWIN: [id number] / MTDD
[2019-02-24 11:35] LABS: Glucose,Whole Blood 125 mg/dL (75-99)
[2019-02-24] MEDS: THIAMINE 100 MG TAB PO SCH ×2 (11:59→17:41)
--- NOTE | 2019-02-24 15:10 | P.PN ---
Subjective Progress Note Date: 02/24/19 The patient is a 38 yo M w/ a PMH of HTN, seizure disorder, and EtOH abuse who was transferred to the ED from [facility] for altered mentation and pneumonia. History obtained from EMR and transfer records since patient unable to provide history at this time. The patient was apparently brought to the ED at [facility] by his after she found him inebriated and with chest and facial trauma. At [facility], patient was noted to have pneumonia along with an alcohol level of 500+ and he was transferred to [facility]. The patient was intoxicated during examination and unable to provide history. Upon admission to ED, he was tachycardic to 130 w/ SpO2 92-95% on NC 6L. He underwent an extensive evaluation w/ Hgb 11.7, Na 151, K 3.3, CO2 13, A-Gap 29, AST 353, w/ serum alcohol level 370. He is being admitted to the medicine service to the ICU for further management. The patient was subsequently intubated. He was started on IV abxs w/ Zosyn. The patient was noted to have hyperammonemia and was placed on lactulose therapy. The patient's home anti-seizure medications were also resumed. He underwent daily interruption of sedation but had significant sympathetic discharge and thereby couldn't be extubated intially. He however underwent anything extubation trial on 02/23/19 and was extubated successfully. The patient was seen and examined at the bedside in the MICU on 02/24/19. He is more awake and alert today, answering questions appropriately. He c/o generalized pains and aches and feeling weak. He otherwise denied shortness of breath, nausea, abdominal pain, fever, or chills. Objective - Vital Signs Vital signs: Vital Signs Temp 99.9 F H 02/24/19 11:00 Pulse 85 02/24/19 12:00 Resp 16 02/24/19 12:00 BP 131/93 02/24/19 12:00 Pulse Ox 96 02/24/19 12:00 Intake & Output 02/23/19 02/24/19 02/24/19 18:59 06:59 18:59 Intake Total 8031.403 4493.0 1140 Output Total 1975 2600 1550 Balance -69.960 -990.0 -410 Weight 71.8 kg 71.8 kg Intake: IV 1420 1580.0 1020 NS 120 230 120 Piperacillin-Tazobactam 3 100 50.0 100 .375 gm In Sodium Chloride 0.9% 100 ml @ 25 mls/hr IVPB Q8H [facility] Rx#: [id number] Sodium Chloride 0.45% 1, 1200 1200 700 000 ml @ 100 mls/hr IV . Q10H [facility] Rx#:[id number] levETIRAcetam IV 1,000 mg 100 100 In Saline 1 100ml.bag @ 400 mls/hr IVPB Q12HR [facility] Rx#:[id number] Intake, IV Titration 257.040 Amount Magnesium Sulfate-D5w Pmx 100 1 gm In Dextrose/Water 1 100ml.bag @ 100 mls/hr IVPB Q1H [facility] Rx#: [id number] Propofol 1,000 mg In 57.040 Empty Bag 1 bag @ Titrate IV .Q0M [facility] Rx#: [id number] levETIRAcetam IV 1,000 mg 100 In Saline 1 100ml.bag @ 400 mls/hr IVPB Q12HR [facility] Rx#:[id number] Oral 0 30 120 Tube Feeding 228 Output: Urine 1975 2600 1550 Other: Voiding Method Indwelling Catheter Indwelling Catheter Indwelling Catheter - Exam General: Non-toxic, in no acute distress, lethargic, appears stated age, normal weight HEENT: Nasal bridge dry scabs, anicteric sclerae, moist conjunctiva, PERRLA Cardiovascular: S1/S2 wnl, tachycardic, no murmurs, rubs, or gallops Lungs: Scattered coarse breath sunds, normal respiratory effort, no accessory muscle use Abdominal: Soft, non-tender, non-distended, no guarding, rebound, or rigidity Skin: Warm, dry Extremities: No edema or contractures Neuro: Lethargic, answering questions appropriately, strength 2-3/5 throughout, sensation grossly intact throughout - Labs CBC & Chem 7: 02/24/19 04:44 02/24/19 04:44 Labs: Abnormal Lab Results - Last 24 Hours (Table) 02/23/19 02/24/19 02/24/19 Range/Units 17:45 00:20 04:44 RBC (4.30-5.90) m/uL Hgb (13.0-17.5) gm/dL Hct (39.0-53.0) % MCV (80.0-100.0) fL RDW (11.5-15.5) % BUN 7 L (9-20) mg/dL Creatinine 0.30 L (0.66-1.25) mg/dL POC Glucose (mg/dL) 107 H 113 H (75-99) mg/dL Total Bilirubin 3.3 H (0.2-1.3) mg/dL AST 122 H (17-59) U/L ALT 89 H (21-72) U/L Alkaline Phosphatase 253 H (38-126) U/L Total Protein 5.2 L (6.3-8.2) g/dL Albumin 2.7 L (3.5-5.0) g/dL 02/24/19 02/24/19 02/24/19 Range/Units 04:44 07:36 11:31 RBC 2.62 L (4.30-5.90) m/uL Hgb 8.7 L (13.0-17.5) gm/dL Hct 27.4 L (39.0-53.0) % MCV 104.9 H (80.0-100.0) fL RDW 16.2 H (11.5-15.5) % BUN (9-20) mg/dL Creatinine (0.66-1.25) mg/dL POC Glucose (mg/dL) 104 H 125 H (75-99) mg/dL Total Bilirubin (0.2-1.3) mg/dL AST (17-59) U/L ALT (21-72) U/L Alkaline Phosphatase (38-126) U/L Total Protein (6.3-8.2) g/dL Albumin (3.5-5.0) g/dL Microbiology - Last 24 Hours (Table) 02/18/19 09:45 Blood Culture - Final Blood No Growth after 144 hours 02/18/19 09:28 Blood Culture - Final Blood No Growth after 144 hours 02/18/19 00:00 Blood Culture - Final Blood No Growth after 144 hours 02/17/19 23:45 Blood Culture - Final Blood No Growth after 144 hours Assessment and Plan Plan: Acute hypoxic respiratory failure secondary to aspiration pneumonia and acute alcohol intoxication -S/p extubation on 02/23/19 -C/w post-extubation care -Supplemental oxygen -Aspiration precautions -Pulmonary following Metabolic encephalopathy, improved; multifactorial, w/ hx of acute alcohol intoxication, anion gap acidosis, hyperammonemia, w/ recent withdrawal of sedation -[facility] protocol -Neurochecks -Seizure, aspiration, fall precautions -Folate, Thiamine, MV Deconditioning -Evaluated by PT, patient like to be discharged to inpatient or subacute rehab Aspiration pneumonia -C/w Zosyn for now. -Pulmonary recs appreciated Hx of seizure disorder -C/w Keppra and Depakote Macrocytic anemia -Check B12 levels -C/w Folate, MV Hyperammonemia -C/w Lactulose High anion gap metabolic acidosis - resolved Hypokalemia - resolved Hypernatremia - resolved DVT//GI prophylaxis -IPCDs -Protonix Discussed with: Sandeep Anticipated discharge date: 02/25/[address]: Inpatient Rehab A total of 30 minutes was spent on the care of this complex patient more than 50% of the time was spent in counseling and care coordination.
[2019-02-24 17:39] LABS: Glucose,Whole Blood 119 mg/dL (75-99)
[2019-02-24] MEDS: DIVALPROEX SPRINKLE 125 MG CAP.SPRINK PO SCH (21:37)
[2019-02-24] MEDS: LISINOPRIL 20 MG TAB PO SCH (21:37)
[2019-02-25] MEDS ORDERED: HALOPERIDOL LACTATE 5 MG/ML 1 ML VIAL IVP ONE (00:21)
[2019-02-25] MEDS ORDERED: ACETAMINOPHEN TAB 325 MG TAB PO PRN ×2 (00:36→09:04)
[2019-02-25] MEDS ORDERED: HYDROmorphone 0.5 MG/0.5 ML SYRINGE IVP STA (01:39)
[2019-02-25 05:31] LABS: Anisocytosis Slight; HCT 26.4 % (39.0-53.0); HGB 8.5 gm/dL (13.0-17.5); Hypochromasia Slight; MCH 33.5 pg (25.0-35.0); MCHC 32.3 g/dL (31.0-37.0); MCV 103.6 fL (80.0-100.0); Macrocytosis Moderate; Mean Platelet Volume 9.1; Platelet Count 490 k/uL (150-450); RBC 2.55 m/uL (4.30-5.90); RDW 16.7 % (11.5-15.5); WBC 9.9 k/uL (3.8-10.6)
[2019-02-25 05:40] LABS: ALT 82 U/L (21-72); AST 91 U/L (17-59); Albumin 2.7 g/dL (3.5-5.0); Alkaline Phosphatase 210 U/L (38-126); Anion Gap 9 mmol/L; Blood Urea Nitrogen 4 mg/dL (9-20); Calcium 8.6 mg/dL (8.4-10.2); Carbon Dioxide 25 mmol/L (22-30); Chloride 106 mmol/L (98-107); Glucose 83 mg/dL (74-99); Magnesium 1.7 mg/dL (1.6-2.3); Potassium 3.5 mmol/L (3.5-5.1); Sodium 140 mmol/L (137-145); Total Bilirubin 2.8 mg/dL (0.2-1.3); Total Protein 5.2 g/dL (6.3-8.2)
[2019-02-25] MEDS ORDERED: POTASSIUM CHLORIDE ER 20 MEQ TAB.ER PO ONE (07:00)
[2019-02-25 07:03] LABS: Glucose,Whole Blood 96 mg/dL (75-99)
[2019-02-25] MEDS: IPRATROPIUM-ALBUTEROL 3 ML NEB INHALATION SCH ×4 (08:02→19:39)
[2019-02-25] MEDS: MAGNESIUM SULFATE-D5W PMX 1 GM in DEXTROSE/WATER 1 100ML.BAG IVPB SCH ×2 (08:07→09:35)
[2019-02-25] MEDS: LABETALOL 200 MG TAB PO SCH ×2 (08:08→21:07)
[2019-02-25] MEDS: NICOTINE 21MG/24HR PATCH TRANSDERM SCH (08:08)
[2019-02-25] MEDS: LORazepam 2 MG/ML INJ IV PRN ×2 (08:08→12:57)
[2019-02-25] MEDS: PANTOPRAZOLE 40 MG TABLET PO SCH (08:08)
[2019-02-25] MEDS ORDERED: LORazepam 2 MG/ML INJ IV PRN ×2 (08:59)
[2019-02-25] MEDS: levETIRAcetam IV 1,000 MG in SALINE 1 100ML.BAG IVPB SCH (09:02)
[2019-02-25] MEDS: HYDROcodone/APAP 5-325MG 1 EACH TAB PO PRN ×3 (09:34→22:43)
--- NOTE | 2019-02-25 09:43 | XR ---
EXAMINATION TYPE: XR chest 1V portable DATE OF EXAM: 02/25/2019 HISTORY: pneumonia. REFERENCE: Previous study dated 02/23/2019. FINDINGS: The patient has been extubated. The NG tube is been removed. There is worsening bilateral airspace disease, slightly worse on the right than the left. Pleural spa cecilia appear clear. Heart is not enlarged. IMPRESSION: WORSENING BILATERAL AIRSPACE DISEASE, LIKELY REPRESENTING PNEUMONIA.
[2019-02-25] MEDS ORDERED: FUROSEMIDE 10 MG/ML 4 ML VIAL IV STA (09:47)
[2019-02-25] MEDS: SODIUM CHLORIDE 0.45% 1,000 ML IV SCH ×2 (09:58→18:09)
--- NOTE | 2019-02-25 11:01 | PN ---
PROGRESS NOTE DATE OF SERVICE: 02/25/2019 A 38-year-old male who was admitted back on February 17 with alcohol withdrawal syndrome and aspiration pneumonia. The patient was intubated for adriel respiratory failure on 02/18. He was extubated on February 23. Since that time, he has been doing relatively well. Apparently last night, he became somewhat agitated. Haldol, Ativan, and narcotics were given for sedation. He is doing relatively well today. He seems quite awake and alert. The patient's chest x-ray shows a bit of worsening. It may be fluid. He did receive Zosyn for a number of days. Microbiologic studies were negative. Zosyn was discontinued yesterday. His IV is 0.45 at 100. I have asked the nurse to turn it down to KVO. He is getting O2 at 5 L by nasal cannula. I am also going to give the patient some Lasix today, 40 mg IV push x1. Other than that, he looks relatively stable. Hemodynamic and respiratory status is reasonably stable today. Current vital signs are reviewed. His temperature is 98.2, heart rate 70, respiratory rate 22, blood pressure 149/98 mean 114, 5 L saturation 95%. Appears in no acute distress. HEENT: Examination is grossly unremarkable. Nasal O2 in place. NECK: Supple. Full range of motion. No adenopathy. Neck veins are flat. CARDIOVASCULAR: Examination reveals regular rhythm and rate. Heart rate about 85 beats per minute. S1, S2 normal. There is no murmur. LUNGS: Reveal a few scattered rhonchi and crackles. Breath sounds equal. No wheezes. ABDOMEN: Soft. Bowel sounds are heard. EXTREMITIES: Intact. No cyanosis, clubbing, or edema. SKIN: Without significant rash. There are few areas of ecchymoses. NEUROLOGIC: Examination is brief but nonfocal. LABS: Reviewed. White count 9.9, hemoglobin 8.5, hematocrit 26.4, platelet count 490,000. Sodium, potassium, chloride, CO2, anion gap, BUN and creatinine are all relatively normal. Calcium is 8.6, magnesium 1.7, total bilirubin is 2.8, AST 91, ALT 82, alkaline phosphatase 210. CK was 655. Albumin 2.7. Chest x-ray shows diffuse bilateral infiltrates. They are a bit worse. Could be fluid overload and/or pneumonia. Again, all his microbiologic studies were negative. In addition, he did receive at least 7 or 8 days of Zosyn. His medications are reviewed. They have been adjusted accordingly. The patient's Depakote and Keppra were restarted. ASSESSMENT: 1. Acute hypoxemic respiratory failure secondary to aspiration pneumonia and acute alcohol intoxication with alcohol withdrawal syndrome and possible alcoholic seizures. 2. Status post intubation and mechanical ventilation on February 18 for respiratory failure, with successful extubation on February 23. 3. History of acute alcohol intoxication. 4. Metabolic encephalopathy, improved. 5. Anion gap metabolic acidosis, resolved. 6. Acute pancreatitis, resolved. 7. Acute alcohol induced hepatitis. 8. Profound electrolyte disturbance, likely related to re-feeding syndrome. 9. Sepsis secondary to aspiration pneumonia. 10.History of chronic alcohol abuse. 11.History of seizure disorder. 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 PLAN: The patient seems to be doing much better. Today will drop his IV to KVO or PIVIL his IV. The patient will get Lasix 40 mg IV push. Zosyn was discontinued yesterday. Additional recommendations and suggestions are forthcoming. The patient could be transferred over to a general medical floor. He does not need telemetry. His prognosis is guarded. MMODL / PARASN: [id number] / MTDD
[2019-02-25] MEDS: MORPHINE SULFATE 2 MG/ML SYRINGE IVP PRN ×3 (11:17→21:19)
[2019-02-25 11:39] LABS: Appearance,Urine Clear (Clear); Bilirubin,Urine Negative (Negative); Blood,Urine Trace (Negative); Color,Urine Light Yellow; Glucose,Urine (UA) Negative (Negative); Hyaline Casts,Urine 1 /lpf (0-2); Ketones,Urine 1+ (Negative); Leukocyte Esterase,Urine Negative (Negative); Mucus,Urine Rare /hpf; Nitrite,Urine Negative (Negative); Protein,Urine Negative (Negative); RBC,Urine 2 /hpf (0-5); Specific Gravity,Urine 1.005 (1.001-1.035); Urobilinogen,Urine <2.0 mg/dL (<2.0)
[2019-02-25 12:06] LABS: Glucose,Whole Blood 115 mg/dL (75-99)
[2019-02-25] MEDS: THIAMINE 100 MG TAB PO SCH ×2 (12:25→16:48)
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
[2019-02-25] MEDS: ENOXAPARIN 40 MG/0.4 ML SYRINGE SQ SCH (14:37)
--- NOTE | 2019-02-25 14:58 | US ---
EXAMINATION TYPE: US venous doppler duplex LE BI DATE OF EXAM: 02/25/2019 2:14 PM COMPARISON: NONE CLINICAL HISTORY: pain. swelling, poor historian- ICU SIDE PERFORMED: Bilateral TECHNIQUE: The lower extremity deep venous system is examined utilizing real time linear array sonog ankita with graded compression, doppler sonography and color-flow sonography. VESSELS IMAGED: External Iliac Vein (EIV) Common Femoral Vein Deep Femoral Vein Greater Saphenous Vein * Femoral Vein Popliteal Vein Small Saphenous Vein * Proximal Calf Veins (* superficial vessels) Right Leg: Negative for DVT Left Leg: Negative for DVT IMPRESSION: No evidence of deep venous thrombosis in the right leg.
[2019-02-25] MEDS: DIVALPROEX SPRINKLE 125 MG CAP.SPRINK PO SCH (21:05)
[2019-02-25] MEDS: levETIRAcetam 500 MG TAB PO SCH (21:06)
[2019-02-25] MEDS: LISINOPRIL 20 MG TAB PO SCH (21:07)
[2019-02-26] MEDS: LORazepam 2 MG/ML INJ IV PRN ×4 (00:45→21:20)
[2019-02-26] MEDS: MORPHINE SULFATE 2 MG/ML SYRINGE IVP PRN ×5 (03:53→22:58)
[2019-02-26] MEDS: HYDROcodone/APAP 5-325MG 1 EACH TAB PO PRN ×4 (05:35→19:57)
[2019-02-26 05:43] LABS: HCT 26.6 % (39.0-53.0); HGB 8.4 gm/dL (13.0-17.5); Hypochromasia Slight; MCH 33.2 pg (25.0-35.0); MCHC 31.4 g/dL (31.0-37.0); Macrocytosis Moderate; Mean Platelet Volume 8.5; Platelet Count 556 k/uL (150-450); RBC 2.51 m/uL (4.30-5.90); RDW 15.8 % (11.5-15.5); WBC 10.6 k/uL (3.8-10.6)
[2019-02-26 06:04] LABS: Anion Gap 5 mmol/L; Blood Urea Nitrogen 6 mg/dL (9-20); Calcium 8.3 mg/dL (8.4-10.2); Carbon Dioxide 30 mmol/L (22-30); Chloride 105 mmol/L (98-107); Glucose 79 mg/dL (74-99); Magnesium 1.8 mg/dL (1.6-2.3); Potassium 3.4 mmol/L (3.5-5.1); Sodium 140 mmol/L (137-145)
[2019-02-26] MEDS: IPRATROPIUM-ALBUTEROL 3 ML NEB INHALATION SCH ×4 (07:23→19:57)
[2019-02-26] MEDS: LABETALOL 200 MG TAB PO SCH ×2 (08:11→21:21)
[2019-02-26] MEDS: levETIRAcetam 500 MG TAB PO SCH ×2 (08:11→21:22)
[2019-02-26] MEDS: POTASSIUM CHLORIDE ER 20 MEQ TAB.ER PO SCH ×2 (08:11→09:53)
[2019-02-26] MEDS: ENOXAPARIN 40 MG/0.4 ML SYRINGE SQ SCH (08:12)
[2019-02-26] MEDS: PANTOPRAZOLE 40 MG TABLET PO SCH ×2 (08:12→16:41)
[2019-02-26] MEDS: NICOTINE 21MG/24HR PATCH TRANSDERM SCH (08:12)
[2019-02-26] MEDS: MAGNESIUM SULFATE-D5W PMX 1 GM in DEXTROSE/WATER 1 100ML.BAG IVPB SCH ×2 (09:53→10:59)
--- NOTE | 2019-02-26 10:04 | PN ---
PROGRESS NOTE DATE OF SERVICE: 02/26/2019. HISTORY: This is a 38-year-old male who was admitted back on February 17 with alcohol withdrawal syndrome and aspiration pneumonia. The patient was intubated for adriel respiratory failure on February 18. He was extubated successfully on February 23. He is still in the ICU primarily because there are no beds out on the floor. He has been relatively stable. The patient was treated with Zosyn from the day of admission to just a couple of days ago. I believe he received 7 days of Zosyn. This is a presumed infection although all his microbiologic studies were negative. Currently, the patient is on O2 at 4 L by nasal cannula and getting half-normal saline at 20 mL an hour. He had a Doppler study that was negative. He denies any complaints today. He states that he is still coughing a bit. Not producing any phlegm. He has a few aches and pains from lying in bed for a number of days. PHYSICAL EXAM: Current vital signs are reviewed, temperature 98.5, heart rate 97, respiratory rate 20, blood pressure 124/76, mean 92, 5 L saturation 95%. Appears in no acute distress. HEENT examination is grossly unremarkable. Mucous membranes are moist. No oral lesions. Neck is supple. Full range of motion. No adenopathy, thyromegaly or neck vein distention. Cardiovascular examination reveals regular rhythm rate. Heart rate 97 beats per minute. S1, S2 normal. There is no S3, S4, or murmur. Lungs reveal mostly clear breath sounds. A few scattered rhonchi. No crackles or wheezes. Breath sounds are equal bilaterally. Abdomen is soft. Bowel sounds are heard. Extremities are intact. No cyanosis, clubbing, or edema. Skin without rash. There are a few areas of ecchymoses. Neurologic examination is brief but nonfocal. LABS: Microbiologic studies including blood, urine and sputum evaluation have all been negative. Lab values include a white count of 10.6, hemoglobin 8.4, hematocrit 26.6, and platelet count 556,000. Sodium 140, potassium 3.4, chloride 105, CO2 of 30, anion gap is 5. BUN and creatinine were 6 and 0.37. Urine is essentially negative. No chest x-ray from today. As mentioned, Dopplers of the lower extremities were negative. Medications are reviewed. We did add back the patient's Depakote and Keppra. ASSESSMENT: 1. Acute hypoxemic respiratory failure secondary to aspiration pneumonia and acute alcohol intoxication with alcohol withdrawal syndrome and possible alcoholic seizures. 2. Status post intubation and mechanical ventilation on February 18 for respiratory failure with successful extubation on February 23. 3. History of acute alcohol intoxication. 4. Metabolic encephalopathy, much improved. 5. Anion gap metabolic acidosis, resolved. 6. Acute pancreatitis, resolved. 7. Acute alcohol-induced hepatitis. 8. Profound electrolyte disturbance, likely related to refeeding syndrome, resolved. 9. Sepsis secondary to aspiration pneumonia. 10.History of chronic alcohol abuse. 11.History of seizure disorder secondary to head trauma many years back. 12.Alcohol induced bone marrow failure with anemia and thrombocytopenia, both improved. PLAN: The patient seems to be doing much better. His IV is half-normal saline at 20 mL an hour. He could be piviled. The patient is currently on O2 at 4 L. We will continue to follow. Dopplers of lower extremities are negative. He can be transferred out to the general medical floor. He does not need telemetry. Prognosis is guarded. MMODL / IJN: [id number] /
[2019-02-26] MEDS: THIAMINE 100 MG TAB PO SCH ×2 (12:44→18:13)
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
[2019-02-26] MEDS: SODIUM CHLORIDE 0.45% 1,000 ML IV SCH (15:45)
[2019-02-26] MEDS: POTASSIUM BICARBONATE/CIT AC 20 MEQ TABLET.EFF NG-TUBE SCH (16:42)
[2019-02-26] MEDS: INSULIN ASPART (NovoLOG) 100 UNIT/ML VIAL SQ SCH (16:45)
[2019-02-26] MEDS: LISINOPRIL 20 MG TAB PO SCH (21:21)
[2019-02-26] MEDS: DIVALPROEX SPRINKLE 125 MG CAP.SPRINK PO SCH (21:22)
[2019-02-27] MEDS: MORPHINE SULFATE 2 MG/ML SYRINGE IVP PRN ×3 (03:59→11:47)
[2019-02-27 05:51] VITALS: TEMP 97.8
[2019-02-27] MEDS: HYDROcodone/APAP 5-325MG 1 EACH TAB PO PRN ×4 (06:06→22:24)
[2019-02-27] MEDS: LABETALOL 200 MG TAB PO SCH ×2 (06:11→20:40)
[2019-02-27] MEDS: ENOXAPARIN 40 MG/0.4 ML SYRINGE SQ SCH (07:23)
[2019-02-27] MEDS: levETIRAcetam 500 MG TAB PO SCH ×2 (07:24→20:40)
[2019-02-27] MEDS: NICOTINE 21MG/24HR PATCH TRANSDERM SCH (07:24)
[2019-02-27] MEDS: PANTOPRAZOLE 40 MG TABLET PO SCH (07:24)
[2019-02-27 07:37] LABS: HCT 24.1 % (39.0-53.0); HGB 7.8 gm/dL (13.0-17.5); Hypochromasia Slight; MCH 33.7 pg (25.0-35.0); MCHC 32.4 g/dL (31.0-37.0); MCV 104.2 fL (80.0-100.0); Macrocytosis Moderate; Mean Platelet Volume 8.6; Platelet Count 588 k/uL (150-450); RBC 2.31 m/uL (4.30-5.90); RDW 15.9 % (11.5-15.5); WBC 9.3 k/uL (3.8-10.6)
[2019-02-27 07:47] LABS: ALT 63 U/L (21-72); AST 61 U/L (17-59); Albumin 2.8 g/dL (3.5-5.0); Alkaline Phosphatase 169 U/L (38-126); Anion Gap 5 mmol/L; Blood Urea Nitrogen 6 mg/dL (9-20); Calcium 8.5 mg/dL (8.4-10.2); Carbon Dioxide 29 mmol/L (22-30); Chloride 106 mmol/L (98-107); Glucose 80 mg/dL (74-99); Magnesium 1.9 mg/dL (1.6-2.3); Potassium 3.7 mmol/L (3.5-5.1); Sodium 140 mmol/L (137-145); Total Bilirubin 2.1 mg/dL (0.2-1.3); Total Protein 5.4 g/dL (6.3-8.2)
[2019-02-27] MEDS: IPRATROPIUM-ALBUTEROL 3 ML NEB INHALATION SCH ×4 (07:56→19:19)
--- NOTE | 2019-02-27 09:14 | P.DS ---
Providers Date of admission: 02/18/19 00:00 Expected date of discharge: 02/28/19 Attending physician: Didi Begum MD Consults: 02/17/19 23:50 Consult Physician Routine Consulting Provider: Andrzej Kruger Consult Reason/Comments: icu Do you want consulting provider notified?: Yes Primary care physician: Stated None Hospital Course: Patient is a 38-year-old male with a PMH of EtOH abuse, seizure disorder, and hypertension who presented as a transfer from [facility] for altered mental status and pneumonia. The patient was initially unable to provide history and thereby information was obtained from EMR transfer records. The patient had undergone an extensive evaluation in the [facility] ED and was found to have pneumonia on the x-ray with an alcohol level of greater than 500 and he was subsequently transferred to [facility]. He was also noted to have facial and chest trauma.. The patient was noted to be hypoxic and tachycardic with laboratory analysis showing AST 353, ALT 119, alkaline phosphatase 145, sodium 151, with UA showing ketones and blood. The patient was subsequently admitted to the medical ICU due to significant tachycar sally and altered mentation. The patient was started on IV antibiotics which was subsequently switched to Zosyn and Levaquin. He subsequently began having respiratory distress and was intubated. He was also placed on sodium bicarb drip for the metabolic acidosis which were subsequently discontinued once it improved. Following intubation, the patient's pneumonia and overall clinical status gradually improved however he had multiple unsuccessful extubation attempts due to sympathetic discharges. He however had a successful exhibition on 02/23/2019, which she tolerated well. The patient's antibiotics were subsequently discontinued on February 24 after 6 days of duration. The patient was subsequently evaluated by difficult therapy who initially recommended inpatient acute rehab transfer due to deconditioning. The patient was waiting for pre- authorization from his insurance company when he noted that he doesn't wish to go to Rehab and would rather be discharged home. The patient was seen and examined at the bedside on the day of discharge. He continued to complain of generalized pain all over with weakness improved significantly. He otherwise denied additional symptoms including cough, fever, chest pain, or shortness of breath. He notes that he has been tolerating his diet well and he had no additional complaints. The patient will be discharged to home w/ home PT. Physical Examination General: Non-toxic, in no acute distress, appears stated age, normal weight HEENT: NC/AT, anicteric sclerae, moist conjunctiva, no lid-lag, PERRLA Cardiovascular: S1/S2 wnl, no murmurs, rubs, or gallops Lungs: Clear to auscultation, normal respiratory effort, no accessory muscle use Abdominal: Soft, non-tender, non-distended, no guarding, rebound, or rigidity Skin: Warm, dry Extremities: No edema or contractures Psychiatric: Alert and oriented to person, place and time, appropriate affect Neuro: CN II-XII grossly intact, Strength 4/5 in all 4 extremities, Speech intact, Sensation to light touch grossly intact throughout Discharge diagnosis:Acute hypoxic respiratory failure secondary to aspiration pneumonia, resolved; alcohol intoxication; metabolic encephalopathy; macrocytic anemia; deconditioning due to prolonged ventilation; history of seizure disorder; transaminitis; anion gap metabolic acidosis, resolved; hypokalemia, resolved; hypernatremia, resolved A total of 40 minutes of time were spent preparing this complex discharge summary. Patient Condition at Discharge: Fair Plan - Discharge Summary Discharge Rx Participant: Yes New Discharge Prescriptions: New Thiamine [Vitamin B-1] 100 mg PO BID@1200,1700 tab Folic Acid 0.4 mg PO DAILY #30 tab Potassium Chloride ER [K-Dur 10] 10 meq PO DAILY #30 tab Multivitamin [Multivitamins Adult Gummies] 1 each PO DAILY #30 tablet Continue Divalproex [Depakote] 500 mg PO DAILY #30 tablet. levETIRAcetam [Keppra] 1,000 mg PO Q12HR #30 tablet Lisinopril 40 mg PO DAILY #30 tablet Discharge Medication List Thiamine [Vitamin B-1] 100 mg PO BID@1200,1700 tab 02/27/19 [Rx] Divalproex [Depakote] 500 mg PO DAILY #30 tablet. 02/28/19 [Rx] Folic Acid 0.4 mg PO DAILY #30 tab 02/28/19 [Rx] Lisinopril 40 mg PO DAILY #30 tablet 02/28/19 [Rx] Multivitamin [Multivitamins Adult Gummies] 1 each PO DAILY #30 tablet 02/28/19 [Rx] Potassium Chloride ER [K-Dur 10] 10 meq PO DAILY #30 tab 02/28/19 [Rx] levETIRAcetam [Keppra] 1,000 mg PO Q12HR #30 tablet 02/28/19 [Rx] Follow up Appointment(s)/Referral(s): [facility], [NON-STAFF] - 1 Week None,Stated [Primary Care Provider] - 1-2 days Discharge Disposition: TRANSFER TO SNF/ECF
[2019-02-27] MEDS: LORazepam 2 MG/ML INJ IV PRN (09:43)
[2019-02-27] MEDS: THIAMINE 100 MG TAB PO SCH ×2 (12:50→18:26)
--- NOTE | 2019-02-27 15:44 | P.CONS ---
History of Present Illness - Chief Complaint Gait disturbance - History of Present Illness I had the opportunity to see patient for inpatient rehab consultation with regard to gait disturbance. [facility] and lower extremity weakness. Girlfriend reports patient's father about a month ago patient had increased intake alcohol. He apparently bec layla bedbound and with difficulty with weakness in the legs. May been seen in [facility] right CT of head and speech C-spine report is negative. Seen by Dr. Bobo who notes aspiration pneumonia right side with hypoxic hypoxic respiratory failure and metabolic encephalopathy. Laboratories Doppler negative for right or left leg DVT. Chest x-rays followed for the pneumonia which if anything is increasing. PT reports minimal assistance for functionally minimal moderate assistance for transfers and gait one-step. OT reports supervision for upper dressing, minimal assist for lower dressing and minimal moderate assistance for bathing and total assistance for toileting. Previous functional history as elicited from patient: 38-year-old right-handed white male lives in second-floor apartment with significant other and their 2 kids. Patient is unemployed is applied filed for disability. Disability related to seizure disorder, Crohn's, lupus in the lower extremity weakness. The patient the cooking, laundry and patient independent with driving, standing shower and gait with standard cane which she has been using for the last month. Does not have regular physician. Smokes a pack per day and denies alcohol. Family history: Patient denies medical problems in parents or smoking history. Review of Systems Review of systems: Skin: Sores particularly lowers but all limbs. ENT: Denies sneezes or discharge. Eyes: Denies discharge or photophobia. Cardiac: Denies chest pain or palpitation. Pulmonary: Denies cough or shortness of breath. Gastrointestinal: Denies nausea, emesis, constipation, diarrhea. Genitourinary: Denies discharge or frequency. Musculoskeletal: Denies muscle or bone aches. Neurologic: Weakness especially lowers. Endocrine: Denies shakes or sweats. Oncology: Denies cancers. Dermatologic: Denies rash, itching, pruritus. ALLERGY/immunology: Denies sneezes, rashes. Past Medical History Past Medical History: Fibromyalgia, Hypertension, Seizure Disorder Additional Past Medical History / Comment(s): lupus, alcohol abuse History of Any Multi-Drug Resistant Organisms: None Reported Past Surgical History: No Surgical Hx Reported Smoking Status: Current every day smoker Medications and Allergies Home Medications Medication Instructions Recorded Confirmed Type Divalproex [Depakote] 500 mg PO DAILY 02/22/19 02/22/19 History Lisinopril 40 mg PO DAILY 02/22/19 02/22/19 History levETIRAcetam [Keppra] 1,000 mg PO Q12HR 02/22/19 02/22/19 History Thiamine [Vitamin B-1] 100 mg PO BID@1200,1700 tab 02/27/19 Rx Allergies Allergy/AdvReac Type Severity Reaction Status Date / Time codeine Allergy Unknown Verified 02/17/19 22:19 ketorolac tromethamine Allergy Itching Verified 02/17/19 22:19 [From Toradol] Physical Exam Vitals: Vital Signs Temp Pulse Pulse Resp BP Pulse Ox 02/27/19 15:17 90 02/27/19 15:07 90 02/27/19 11:40 94 02/27/19 11:30 94 02/27/19 08:10 95 02/27/19 07:56 95 95 02/27/19 06:03 96 135/97 02/27/19 05:49 97.8 F 91 16 148/97 94 L 02/27/19 05:19 92 22 156/92 95 02/26/19 22:12 98.1 F 104 H 16 150/99 93 L 02/26/19 20:10 98 02/26/19 19:57 98 Intake and Output 02/27/19 02/27/19 02/27/19 06:59 14:59 22:59 Intake Total 400 Output Total 400 Balance 0 Intake: IV 160 Sodium Chloride 0.45% 1, 160 000 ml @ 20 mls/hr IV . Q24H [facility] Rx#:[id number] Oral 240 Output: Urine 400 Other: Voiding Method Urinal Urinal Weight 67.5 kg Skin: Multiple sores reported. General: Thin build and comfortable appearance. Head: Normocephalic, atraumatic. Eyes: Symmetric. Pupils equal round. Ears: Symmetric. Hearing within normal limits. Mouth: Clear. Neck: Supple. Carotid without bruit. Cardiac: Regular rate and rhythm. Lungs: Clear anteriorly and posteriorly. Abdomen: Soft active nontender. Extremities: Normal tone. Thin limbs. Left forearm and hand in wrap. Neurological: Mental status: Alert, cooperative, pleasant. Cranial nerves: Symmetric facial tone and trapezius. Motor: Cane actively elevate both arms and left leg. Right leg poor. Sensation: Intact throughout. DTRs: Symmetric and equal throughout. Mobility: Two-person assist for bed mobility and transfers. Results CBC & Chem 7: 02/27/19 06:57 02/27/19 06:57 Labs: Abnormal Lab Results - Last 24 Hours (Table) 02/27/19 02/27/19 Range/Units 06:57 06:57 RBC 2.31 L (4.30-5.90) m/uL Hgb 7.8 L (13.0-17.5) gm/dL Hct 24.1 L (39.0-53.0) % MCV 104.2 H (80.0-100.0) fL RDW 15.9 H (11.5-15.5) % Plt Count 588 H (150-450) k/uL BUN 6 L (9-20) mg/dL Creatinine 0.38 L (0.66-1.25) mg/dL Total Bilirubin 2.1 H (0.2-1.3) mg/dL AST 61 H (17-59) U/L Alkaline Phosphatase 169 H (38-126) U/L Total Protein 5.4 L (6.3-8.2) g/dL Albumin 2.8 L (3.5-5.0) g/dL Assessment and Plan (1) Community acquired pneumonia Current Visit: Yes Status: Acute Code(s): J18.9 - PNEUMONIA, UNSPECIFIED ORGANISM SNOMED Code(s): 949753331 (2) Hepatic encephalopathy Current Visit: Yes Status: Acute Code(s): K72.90 - HEPATIC FAILURE, UNSPECIFIED WITHOUT COMA SNOMED Code(s): 26940911 Plan: Impression: 1. Gait disturbance. 2. Hepatic encephalopathy resultant gait disturbance. 3. Right-sided pneumonia, community-acquired. 4. History of seizure disorder. 5. Crohn's disease. 6. Lower extremity weakness, severe. Particularly right leg. 7. Alcohol abuse. 8. Hypertension. 9. Fibromyalgia. Comments and plan: At this time PT and OT are ongoing. Safety concerns noted. Discussed possible inpatient rehab with patient and significant other. Both seem agreeable for stay. I note that significant other does report the patient has improved somewhat since admission and cessation of alcohol.
--- NOTE | 2019-02-27 17:17 | P.PN ---
Subjective Progress Note Date: 02/27/19 Principal diagnosis: Acute alcohol intoxication, extensive right-sided pneumonia, aspiration pneumonia, seizure disorder, hypoxic respiratory failure resolved On 02/27/2019 patient is seen in follow-up on medical surgical floor. He is resting comfortably in bed, in no acute distress, he is on room air, he has been wearing oxygen intermittently, denies any shortness of breath, denies any cough or congestion, afebrile, hemodynamically stable. His main complaint is being generally weak, patient states he is unable to stand or ambulate. Culture data has been reviewed, blood urine and sputum cultures have shown no growth thus far, today's labs have been reviewed, white blood cell count is 9.3, hemoglobin is 7.8, electrolytes are within normal limits, B1 is 6, creatinine 0.38. Lung sounds are clear, diminished at the bases. Lower extremity Dopplers were negative for DVT. Patient is on home dose of Keppra, he is on nebulized bronchodilators, he has completed a course of his antibiotics, have been discontinued. Objective - Vital Signs Vital signs: Vital Signs Temp 97.8 F 02/27/19 05:49 Pulse 90 02/27/19 15:17 Resp 16 02/27/19 05:49 BP 135/97 02/27/19 06:03 Pulse Ox 95 02/27/19 07:56 Intake & Output 02/26/19 02/27/19 02/27/19 18:59 06:59 18:59 Intake Total 980 960 Output Total 850 400 Balance 130 560 Weight 67.5 kg Intake: IV 180 240 Sodium Chloride 0.45% 1, 180 240 000 ml @ 20 mls/hr IV . Q24H ANDREA Rx#:[id number] Intake, IV Titration 200 Amount Magnesium Sulfate-D5w Pmx 200 1 gm In Dextrose/Water 1 100ml.bag @ 100 mls/hr IVPB Q1H ANDREA Rx#: [id number] Oral 600 720 Output: Urine 850 400 Other: Voiding Method Indwelling Catheter Urinal Urinal # Voids 1 2 - Exam GENERAL EXAM: Alert, pleasant, 38-year-old white male comfortable in no apparent distress. HEAD: Normocephalic/atraumatic. EYES: Normal reaction of pupils, equal size. Conjunctiva pink, sclera white. NOSE: Clear with pink turbinates. THROAT: No erythema or exudates. NECK: No masses, no JVD, no thyroid enlargement, no adenopathy. CHEST: No chest wall deformity. Symmetrical expansion. LUNGS: Equal air entry with no crackles, wheeze, rhonchi or dullness. CVS: Regular rate and rhythm, normal S1 and S2, no gallops, no murmurs, no rubs ABDOMEN: Soft, nontender. No hepatosplenomegaly, normal bowel sounds, no guarding or rigidity. EXTREMITIES: No clubbing, no edema, no cyanosis, 2+ pulses and upper and lower extremities. MUSCULOSKELETAL: Muscle strength and tone normal. SPINE: No scoliosis or deformity SKIN: No rashes CENTRAL NERVOUS SYSTEM: Alert and oriented -3. No focal deficits, tone is normal in all 4 extremities. PSYCHIATRIC: Alert and oriented -3. Appropriate affect. Intact judgment and insight. - Labs CBC & Chem 7: 02/27/19 06:57 02/27/19 06:57 Labs: Abnormal Lab Results - Last 24 Hours (Table) 02/27/19 02/27/19 Range/Units 06:57 06:57 RBC 2.31 L (4.30-5.90) m/uL Hgb 7.8 L (13.0-17.5) gm/dL Hct 24.1 L (39.0-53.0) % MCV 104.2 H (80.0-100.0) fL RDW 15.9 H (11.5-15.5) % Plt Count 588 H (150-450) k/uL BUN 6 L (9-20) mg/dL Creatinine 0.38 L (0.66-1.25) mg/dL Total Bilirubin 2.1 H (0.2-1.3) mg/dL AST 61 H (17-59) U/L Alkaline Phosphatase 169 H (38-126) U/L Total Protein 5.4 L (6.3-8.2) g/dL Albumin 2.8 L (3.5-5.0) g/dL Assessment and Plan Plan: Assessment: 1 acute hypoxic respiratory failure secondary to aspiration pneumonia and acute alcohol intoxication associated with possible seizures. Requiring intubation and mechanical ventilation, patient was successfully extubated on 02/23/2019. Patient has been treated with antibiotics, and so far the microbiologic studies have been negative. 2 acute alcohol intoxication 3 acute metabolic encephalopathy and alcohol intoxication. 4anion gap metabolic acidosis secondary to alcohol intoxication, possible sepsis, Resolved 5 acute pancreatitis with elevated lipase 6 acute alcohol induced hepatitis 7 acute electrolyte imbalance including hypernatremia, hypokalemia, hypophosphatemia, hypomagnesemia. Hypocalcemia.being addressed accordingly his hypernatremia has corrected nicely, his hypomagnesemia was corrected, and his hypocalcemia was corrected, we are presently correcting his hypokalemia and hypophosphatemia as per protocol. 8 possible sepsis secondary to pneumonia.patient is presently on empiric antibiotics for possible aspiration. 9History of alcoholism 10 history of seizure disorder Plan: Patient is clinically stable, no fever or chills, microbiologic studies have been negative to date, he has completed a course of Zosyn, and antibiotics have been discontinued, continue encouraging deep breathing and coughing, maintain a spiration precautions, no fever or chills, no cough or congestion. Patient is being evaluated for subacute rehabilitation, his main complaint is being extremely generally weak, and not being able to ambulate or stand. Otherwise vital signs are stable, no acute issues overnight, from pulmonary perspective patient is stable for transfer to inpatient rehab versus subacute rehab I performed a history & physical examination of the patient and discussed their management with my nurse practitioner, Ashley Soriano. I reviewed the nurse practitioner's note and agree with the documented findings and plan of care. Lung sounds are positive for diminished breath sounds. The findings and the impression was discussed with the patient. I attest to the documentation by the nurse practitioner. Time with Patient: Less than 30
[2019-02-27] MEDS: LISINOPRIL 20 MG TAB PO SCH (20:40)
[2019-02-27] MEDS: DIVALPROEX SPRINKLE 125 MG CAP.SPRINK PO SCH (20:40)
[2019-02-27] MEDS: SODIUM CHLORIDE 0.45% 1,000 ML IV SCH (20:41)
[2019-02-28] MEDS: HYDROcodone/APAP 5-325MG 1 EACH TAB PO PRN ×3 (02:54→12:03)
[2019-02-28 05:23] VITALS: BP 163/82; RESP 18
[2019-02-28] MEDS: IPRATROPIUM-ALBUTEROL 3 ML NEB INHALATION SCH ×2 (07:18→11:10)
[2019-02-28] MEDS: ENOXAPARIN 40 MG/0.4 ML SYRINGE SQ SCH (07:21)
[2019-02-28] MEDS: PANTOPRAZOLE 40 MG TABLET PO SCH (07:21)
[2019-02-28] MEDS: levETIRAcetam 500 MG TAB PO SCH (07:21)
[2019-02-28] MEDS: LABETALOL 200 MG TAB PO SCH (07:22)
[2019-02-28] MEDS: NICOTINE 21MG/24HR PATCH TRANSDERM SCH (07:22)
[2019-02-28 07:30] VITALS: PULSE 84
[2019-02-28 09:54] LABS: HGB 8.1 gm/dL (13.0-17.5); Hypochromasia Slight; MCH 33.5 pg (25.0-35.0); MCHC 32.5 g/dL (31.0-37.0); MCV 103.3 fL (80.0-100.0); Macrocytosis Slight; Mean Platelet Volume 8.1; Platelet Count 685 k/uL (150-450); RBC 2.42 m/uL (4.30-5.90); RDW 15.4 % (11.5-15.5); WBC 8.9 k/uL (3.8-10.6)
[2019-02-28 10:03] LABS: ALT 68 U/L (21-72); AST 58 U/L (17-59); Albumin 2.9 g/dL (3.5-5.0); Alkaline Phosphatase 146 U/L (38-126); Anion Gap 8 mmol/L; Blood Urea Nitrogen 5 mg/dL (9-20); Calcium 8.4 mg/dL (8.4-10.2); Carbon Dioxide 28 mmol/L (22-30); Chloride 105 mmol/L (98-107); Glucose 87 mg/dL (74-99); Potassium 3.4 mmol/L (3.5-5.1); Sodium 141 mmol/L (137-145); Total Bilirubin 2.1 mg/dL (0.2-1.3); Total Protein 5.6 g/dL (6.3-8.2)
[2019-02-28] MEDS ORDERED: POTASSIUM CHLORIDE ER 20 MEQ TAB.ER PO STA (10:41)
[2019-02-28] MEDS: LISINOPRIL 20 MG TAB PO SCH (12:02)
[2019-02-28] MEDS: THIAMINE 100 MG TAB PO SCH (12:02)
--- NOTE | 2019-03-01 12:50 | CDI ---
Documentation Clarification Form Date: 03/01/2019 11:38:00 AM From: Milli Rojas Tg Mcdonald, Car[employer] In Worker Hours-8:30 am & 5 pm MRitika Admit Date: 02/18/2019 12:00:00 AM Patient Name: Matthias Noe Visit Number: [id number] Discharge Date: 02/28/2019 12:32:00 PM ATTENTION: The Clinical Documentation Specialists (CDI) and [facility] Coding Staff appreciate your assistance in clarifying documentation. Please respond to the clarification below the line at the bottom and electronically sign. The CDI & [facility] Coding staff will review the response and follow-up if needed. Please note: Queries are made part of the Legal Health Record. If you have any questions, please contact the author of this message via ITS. Dr. Didi Begum Sepsis is documented in the PNs, Consult History/Risk Factors: PNA, Acidosis, Pancreatitis, Acute Respiratory Failure WBC: 7.2, 5.2, 8.6 Blood cultures: No growth Vitals signs on admission: T 99.8, BP 126/92, RR 32, OK 128 Treatment: IV Abx In your professional opinion, please clarify if these findings signify one of the following conditions, if known: Sepsis ruled out Sepsis ruled in Other, please specify Unable to determine Sepsis ruled in: Secondary to aspiration pneumonia MTDD
== END 2019-02-28 12:32 | disposition home health service (06) | DRG 870 ==
LOC: EC 22:10 → 2SICU 02-18 → 3NMEDONC 02-26 17:37
PROVIDERS: ADMIT Internal Medicine; ATTEND Internal Medicine
PROC: 0BH17EZ Insertion of Endotracheal Airway into Trachea, Via Natural or Artificial Opening (ICD-10-PCS; principal; 2019-02-18)
PROC: 5A1955Z Respiratory Ventilation, Greater than 96 Consecutive Hours (ICD-10-PCS; 2019-02-18)
PROC: 0DH67UZ Insertion of Feeding Device into Stomach, Via Natural or Artificial Opening (ICD-10-PCS; 2019-02-19)
PROC: 3E0G76Z Introduction of Nutritional Substance into Upper GI, Via Natural or Artificial Opening (ICD-10-PCS; 2019-02-19)
DX: A41.9 Sepsis, unspecified organism (principal); J96.01 Acute respiratory failure with hypoxia; J69.0 Pneumonitis due to inhalation of food and vomit; G93.41 Metabolic encephalopathy; K85.90 Acute pancreatitis without necrosis or infection, unspecified; D61.9 Aplastic anemia, unspecified; F10.231 Alcohol dependence with withdrawal delirium; E87.4 Mixed disorder of acid-base balance; E87.0 Hyperosmolality and hypernatremia; K50.90 Crohn's disease, unspecified, without complications; G40.509 Epileptic seizures related to external causes, not intractable, without status epilepticus; D69.6 Thrombocytopenia, unspecified; E83.51 Hypocalcemia; E83.42 Hypomagnesemia; K72.90 Hepatic failure, unspecified without coma; K70.10 Alcoholic hepatitis without ascites; M79.7 Fibromyalgia; I10 Essential (primary) hypertension; F17.210 Nicotine dependence, cigarettes, uncomplicated; E87.6 Hypokalemia; E86.1 Hypovolemia; G89.4 Chronic pain syndrome; F10.220 Alcohol dependence with intoxication, uncomplicated; D53.9 Nutritional anemia, unspecified; R26.9 Unspecified abnormalities of gait and mobility; Y90.8 Blood alcohol level of 240 mg/100 ml or more; Z74.01 Bed confinement status; Z79.899 Other long term (current) drug therapy; Z87.820 Personal history of traumatic brain injury; Z88.5 Allergy status to narcotic agent; Z88.8 Allergy status to other drugs, medicaments and biological substances
CPT/HCPCS: 36415; 36600; 71045; 80048; 80053; 80306; 80320; 81001; 82140; 82550; 82607; 82805; 83690; 83735; 84100; 84132; 85025; 85027; 85610; 87040; 87070; 87086; 87205; 87502; 93970; 94002; 94003; 94640; 94760; 94770; 96365; 96366; 99285

== ENCOUNTER 2019-06-02 12:24 | Inpatient (IN) | payer OTHER ==
[2019-06-02] MEDS ORDERED: SODIUM CHLORIDE 0.9% 1,000 ML IV STA (12:52)
[2019-06-02] MEDS ORDERED: THIAMINE 100 MG/ML 2 ML VIAL IM STA ×2 (12:53→15:35)
[2019-06-02] MEDS: SODIUM CHLORIDE 0.9% 1,000 ML with MVI, ADULT NO.4 WITH VIT K 10 ML, THIAMINE 100 MG, F... IV ONE ×8 (13:17→13:55)
[2019-06-02 13:37] LABS: ALT 83 U/L (21-72); AST 66 U/L (17-59); African American GFR (CKD) >90 (>60 ml/min/1.73 sqM); Albumin 5.3 g/dL (3.5-5.0); Alkaline Phosphatase 65 U/L (38-126); Anion Gap 22 mmol/L; Blood Urea Nitrogen 21 mg/dL (9-20); Calcium 10.2 mg/dL (8.4-10.2); Carbon Dioxide 21 mmol/L (22-30); Chloride 101 mmol/L (98-107); Creatine Kinase 102 U/L (55-170); Glucose 114 mg/dL (74-99); Magnesium 1.9 mg/dL (1.6-2.3); Phosphorus 3.5 mg/dL (2.5-4.5); Sodium 144 mmol/L (137-145); Total Bilirubin 0.8 mg/dL (0.2-1.3); Total Protein 8.7 g/dL (6.3-8.2)
--- NOTE | 2019-06-02 13:43 | ED ---
General Adult HPI - General Source: patient, family, RN notes reviewed Mode of arrival: wheelchair Limitations: altered mental status <Nakul Byrd - Last Filed: 06/02/19 15:31> <Luigi Leach - Last Filed: 06/02/19 16:49> - General Chief complaint: Recheck/Abnormal Lab/Rx Stated complaint: ETOH, weakness Time Seen by Provider: 06/02/19 12:51 - History of Present Illness Initial comments: This a 39-year-old male presents emergency Department with family chief complaint of alcohol intoxication, concerns for overall health. Patient was admitted proximal for 3 months ago for acute respiratory failure alcohol intoxication and was intubated. Patient also had a hospitalization shortly after that at [facility] for anemia, acute blood loss. Patient has been drinking heavily over the last few days and is concerned of his well-being. Patient has no specific complaints denies being suicidal or homicidal he has no complaints of chest pain, palpitations, headache or dizziness. He does admit that he has chronic abdominal pain. Secondary to ulcerative colitis. Patient has had rectal bleeding at this time no dysuria no hematuria. Skin states that he has severely intoxicated at this time. Patient claims that he only drank a pint. (Nakul Byrd) - Related Data Previous Rx's Medication Instructions Recorded Divalproex [Depakote] 500 mg PO DAILY #30 tablet. 02/28/19 Lisinopril 40 mg PO DAILY #30 tablet 02/28/19 levETIRAcetam [Keppra] 1,000 mg PO Q12HR #30 tablet 02/28/19 Allergies Allergy/AdvReac Type Severity Reaction Status Date / Time codeine Allergy Unknown Verified 06/02/19 15:47 diphenhydramine Allergy Unknown Verified 06/02/19 15:47 [From Benadryl] ketorolac tromethamine Allergy Itching Verified 06/02/19 15:47 [From Toradol] Review of Systems ROS Other: All systems not noted in ROS Statement are negative. <Nakul Byrd - Last Filed: 06/02/19 15:31> ROS Other: All systems not noted in ROS Statement are negative. <Luigi Leach - Last Filed: 06/02/19 16:49> ROS Statement: Those systems with pertinent positive or pertinent negative responses have been documented in the HPI. Past Medical History Past Medical History: Fibromyalgia, Hypertension, Seizure Disorder Additional Past Medical History / Comment(s): lupus, crohn's History of Any Multi-Drug Resistant Organisms: MRSA Past Surgical History: No Surgical Hx Reported, Orthopedic Surgery Additional Past Surgical History / Comment(s): R hand Past Psychological History: Anxiety Smoking Status: Current every day smoker Past Alcohol Use History: Abuse Past Drug Use History: None Reported <Nakul Byrd - Last Filed: 06/02/19 15:31> General Exam Limitations: altered mental status General appearance: alert, in no apparent distress, appears intoxicated Head exam: Present: atraumatic, normocephalic, normal inspection Eye exam: Present: normal appearance, PERRL, EOMI. Absent: scleral icterus, conjunctival injection, periorbital swelling ENT exam: Present: normal exam, normal oropharynx, mucous membranes moist, TM's normal bilaterally, normal external ear exam Neck exam: Present: normal inspection, full ROM. Absent: tenderness, me ningismus, lymphadenopathy Respiratory exam: Present: normal lung sounds bilaterally. Absent: respiratory distress, wheezes, rales, rhonchi, stridor Cardiovascular Exam: Present: normal rhythm, tachycardia, normal heart sounds. Absent: systolic murmur, diastolic murmur, rubs, gallop, clicks GI/Abdominal exam: Present: soft, tenderness (Mild diffuse), normal bowel sounds. Absent: distended, guarding, rebound, rigid Back exam: Absent: CVA tenderness (R), CVA tenderness (L) Neurological exam: Present: alert, CN II-XII intact. Absent: oriented X3 Skin exam: Present: warm, dry, intact, normal color. Absent: rash <Nakul Byrd - Last Filed: 06/02/19 15:31> Course <Luigi Leach - Last Filed: 06/02/19 16:49> Vital Signs 06/02/19 12:44 Temperature 98.1 F Pulse Rate 131 H Respiratory 18 Rate Blood Pressure 166/99 O2 Sat by Pulse 95 Oximetry - Reevaluation(s) Reevaluation #1: 06/02/19 16:49 PA supervision: I did proceed with evaluation the patient did agree with the findings the patient be admitted for inpatient treatment I did discuss case with Dr. Carmen. (Luigi Lecah) EKG Findings - EKG Comments: EKG Findings:: EKG performed at 13:07 sinus tachycardia rate of 11/20/2015 134 QRS 86 QT/ QTC 298/431 <Nakul Byrd - Last Filed: 06/02/19 15:31> Medical Decision Making - Lab Data Result diagrams: 06/02/19 13:16 06/02/19 13:16 <Nakul Byrd - Last Filed: 06/02/19 15:31> - Lab Data Result diagrams: 06/02/19 13:16 06/02/19 13:16 <Luigi Leach - Last Filed: 06/02/19 16:49> - Medical Decision Making 39-year-old male presented for alcohol intoxication, we'll check her family. Patient To Be Acutely Intoxicated with Metabolic Acidosis Related to Dehydration Alcohol Ketosis. Patient Will Be Admitted for Fluid Hydration, Alcohol Withdrawal Protocol and Further Evaluation. (Nakul Byrd) - Lab Data Lab Results 06/02/19 06/02/19 06/02/19 Range/Units 13:16 13:16 13:16 WBC 10.7 H (3.8-10.6) k/uL RBC 4.96 (4.30-5.90) m/uL Hgb 14.0 (13.0-17.5) gm/dL Hct 42.6 (39.0-53.0) % MCV 86.0 (80.0-100.0) fL MCH 28.2 (25.0-35.0) pg MCHC 32.8 (31.0-37.0) g/dL RDW 15.1 (11.5-15.5) % Plt Count 370 (150-450) k/uL Neutrophils % 68 % Lymphocytes % 24 % Monocytes % 5 % Eosinophils % 1 % Basophils % 1 % Neutrophils # 7.3 (1.3-7.7) k/uL Lymphocytes # 2.6 (1.0-4.8) k/uL Monocytes # 0.6 (0-1.0) k/uL Eosinophils # 0.1 (0-0.7) k/uL Basophils # 0.1 (0-0.2) k/uL PT (9.0-12.0) sec INR (<1.2) APTT (22.0-30.0) sec Sodium 144 (137-145) mmol/L Potassium 4.0 (3.5-5.1) mmol/L Chloride 101 (98-107) mmol/L Carbon Dioxide 21 L (22-30) mmol/L Anion Gap 22 mmol/L BUN 21 H (9-20) mg/dL Creatinine 0.69 (0.66-1.25) mg/dL Est GFR (CKD-EPI)AfAm >90 (>60 ml/min/1.73 sqM) Est GFR (CKD-EPI)NonAf >90 (>60 ml/min/1.73 sqM) Glucose 114 H (74-99) mg/dL Lactic Ac Sepsis Rflx Plasma Lactic Acid Neil 6.7 H* (0.7-2.0) mmol/L Calcium 10.2 (8.4-10.2) mg/dL Phosphorus 3.5 (2.5-4.5) mg/dL Magnesium 1.9 (1.6-2.3) mg/dL Total Bilirubin 0.8 (0.2-1.3) mg/dL AST 66 H (17-59) U/L ALT 83 H (21-72) U/L Alkaline Phosphatase 65 (38-126) U/L Creatine Kinase 102 (55-170) U/L Troponin I (0.000-0.034) ng/mL Total Protein 8.7 H (6.3-8.2) g/dL Albumin 5.3 H (3.5-5.0) g/dL Serum Alcohol 416 H* mg/dL 06/02/19 06/02/19 06/02/19 Range/Units 13:16 13:16 13:47 WBC (3.8-10.6) k/uL RBC (4.30-5.90) m/uL Hgb (13.0-17.5) gm/dL Hct (39.0-53.0) % MCV (80.0-100.0) fL MCH (25.0-35.0) pg MCHC (31.0-37.0) g/dL RDW (11.5-15.5) % Plt Count (150-450) k/uL Neutrophils % % Lymphocytes % % Monocytes % % Eosinophils % % Basophils % % Neutrophils # (1.3-7.7) k/uL Lymphocytes # (1.0-4.8) k/uL Monocytes # (0-1.0) k/uL Eosinophils # (0-0.7) k/uL Basophils # (0-0.2) k/uL PT 9.4 (9.0-12.0) sec INR 0.9 (<1.2) APTT 21.8 L (22.0-30.0) sec Sodium (137-145) mmol/L Potassium (3.5-5.1) mmol/L Chloride (98-107) mmol/L Carbon Dioxide (22-30) mmol/L Anion Gap mmol/L BUN (9-20) mg/dL Creatinine (0.66-1.25) mg/dL Est GFR (CKD-EPI)AfAm (>60 ml/min/1.73 sqM) Est GFR (CKD-EPI)NonAf (>60 ml/min/1.73 sqM) Glucose (74-99) mg/dL Lactic Ac Sepsis Rflx Y Plasma Lactic Acid Neil (0.7-2.0) mmol/L Calcium (8.4-10.2) mg/dL Phosphorus (2.5-4.5) mg/dL Magnesium (1.6-2.3) mg/dL Total Bilirubin (0.2-1.3) mg/dL AST (17-59) U/L ALT (21-72) U/L Alkaline Phosphatase (38-126) U/L Creatine Kinase (55-170) U/L Troponin I <0.012 (0.000-0.034) ng/mL Total Protein (6.3-8.2) g/dL Albumin (3.5-5.0) g/dL Serum Alcohol mg/dL Disposition <Nakul Byrd - Last Filed: 06/02/19 15:31> <Luigi Leach - Last Filed: 06/02/19 16:49> Clinical Impression: Alcohol intoxication, Metabolic acidosis, Altered mental status, Lactic acidosis Disposition: ADMITTED IP TO THIS HOSP Condition: Fair Referrals: Luigi David MD [Primary Care Provider] - 1-2 days
[2019-06-02 13:44] LABS: Basophils # (A) 0.1 k/uL (0-0.2); Basophils % (A) 1 %; Eosinophils # (A) 0.1 k/uL (0-0.7); Eosinophils % (A) 1 %; HCT 42.6 % (39.0-53.0); Lymphocytes # (A) 2.6 k/uL (1.0-4.8); Lymphocytes % (A) 24 %; MCH 28.2 pg (25.0-35.0); MCHC 32.8 g/dL (31.0-37.0); Mean Platelet Volume 7.2; Monocytes # (A) 0.6 k/uL (0-1.0); Monocytes % (A) 5 %; Neutrophils # (A) 7.3 k/uL (1.3-7.7); Neutrophils % (A) 68 %; Platelet Count 370 k/uL (150-450); RBC 4.96 m/uL (4.30-5.90); RDW 15.1 % (11.5-15.5); WBC 10.7 k/uL (3.8-10.6)
[2019-06-02 13:48] LABS: Alcohol 416 mg/dL
[2019-06-02 13:49] LABS: INR 0.9 (<1.2); Prothrombin Time 9.4 sec (9.0-12.0)
[2019-06-02] MEDS ORDERED: SODIUM CHLORIDE 0.9% 1,000 ML IV ONE (13:53)
[2019-06-02] MEDS ORDERED: LORazepam 2 MG/ML INJ IV STA (13:53)
[2019-06-02] MEDS ORDERED: SODIUM CHLORIDE 0.9% 500 ML 500 ML IV ONE (13:53)
[2019-06-02 13:55] LABS: Partial Thromboplastin Time 21.8 sec (22.0-30.0)
--- NOTE | 2019-06-02 14:57 | XR ---
EXAMINATION TYPE: XR chest 2V DATE OF EXAM: 06/02/2019 COMPARISON: 02/25/2019 TECHNIQUE: PA and lateral views submitted. HISTORY: Weakness FINDINGS: The lungs are clear and there is no pneumothorax, pleural effusion, or focal pneumonia. Perihilar i nterstitial changes noted. IMPRESSION: 1. Correlate for bronchitis or viral bronchiolitis.
[2019-06-02] MEDS ORDERED: ONDANSETRON 4 MG/2 ML VIAL IVP PRN (15:33)
[2019-06-02] MEDS ORDERED: IBUPROFEN 600 MG TAB PO STA (16:26)
[2019-06-02 16:54] LABS: Appearance,Urine Clear (Clear); Bilirubin,Urine Negative (Negative); Blood,Urine Small (Negative); Color,Urine Yellow; Glucose,Urine (UA) Negative (Negative); Hyaline Casts,Urine 18 /lpf (0-2); Ketones,Urine 2+ (Negative); Leukocyte Esterase,Urine Negative (Negative); Mucus,Urine Few /hpf; Nitrite,Urine Negative (Negative); Protein,Urine 3+ (Negative); RBC,Urine 1 /hpf (0-5); Specific Gravity,Urine 1.021 (1.001-1.035); Urobilinogen,Urine <2.0 mg/dL (<2.0)
[2019-06-02] MEDS: LORazepam 2 MG/ML INJ IV PRN ×2 (16:54→22:32)
[2019-06-02 17:03] LABS: Amphetamine Screen,Urine Detected (NotDetected); Barbiturate Screen,Urine Not Detected (NotDetected); Benzodiazepines Screen,Urine Not Detected (NotDetected); Cocaine Screen,Urine Not Detected (NotDetected); Methadone Screen, Urine Not Detected (NotDetected); Opiate Screen,Urine Not Detected (NotDetected); Oxycodone Screen, Urine Not Detected (NotDetected); Phencyclidine Screen,Urine Not Detected (NotDetected); Tricyclic Antidepressant,Urine Not Detected (NotDetected); Urn Cannabinoid Scrn Detected (NotDetected)
[2019-06-02] MEDS: THIAMINE 100 MG TAB PO SCH ×2 (19:30→22:32)
--- NOTE | 2019-06-02 22:55 | P.HPIM ---
History of Present Illness H&P Date: 06/02/19 Chief Complaint: Hurting all over History of presenting complaint: This is a 39-year-old patient of Dr. Hanson. Chronic stable medical conditions include chronic fibromyalgia, hypertension, seizures, and lupus, Crohn's disease. Normally has a few bowel movements a day off and I did mucus. In the past used to pass blood. For 3 days patient drinking rather a significant amount of alcohol. She's been doing this to cut back on his pain. He is having pain in his legs feet all over the body. His brother decided to send abdomen. Patient not been working. Patient states she does not drink alcohol or regular basis. r does smoke. Currently not employed. Review of systems: GEN.: Tired EYES: None HEENT: None NECK: None RESPIRATORY: Occasional short of breath CARDIOVASCULAR: None GASTROINTESTINAL: As above GENITOURINARY: None MUSCULOSKELETAL: Generalized pain LYMPHATICS: None HEMATOLOGICAL: None PSYCHIATRY: Anxious NEUROLOGICAL: None Past medical history to include: Fibromyalgia, hypertension, seizure, lupus, Crohn's disease Social history: Smokes about half pack a day for many years alcohol occasionally. Currently not employed. Lives with a roommate. family history: reviewed, non contributory to presentation Physical examination: VITAL SIGNS: 98.1, 96, 15, 1 56/86, 98% room air, late later heart rate went up to 120 GENERAL: BMI 24.3, sitting upon a chair, somewhat restless. EYES: Pupils equal. Conjunctiva normal. HEENT: External appearance of nose and ears normal, oral cavity grossly normal. NECK: JVD not raised; masses not palpable. HEART: First and second heart sounds are normal; no edema. LUNGS: Respiratory rate normal; clear to auscultation. ABDOMEN: Soft, nontender, liver spleen not palpable, no masses palpable. PSYCH: Alert and oriented x3; mood and affect anxious, slightly restlessl. NEUROLOGICAL: Cranial nerves grossly intact; no facial asymmetry, power and sensation grossly intact. LYMPHATICS: No lymph nodes palpable in the axilla and neck INVESTIGATIONS, reviewed in the clinical context: White count 10.7 hemoglobin 14 platelets 370 potassium 4.0 creatinine 0.69 Plasma lactic acid 6.7, repeat 6.5 AST 66 ALt 83 Serum alcohol 416 Urine drug screen positive for amphetamine, methamphetamine, marijuana Assessment: -Acute delirium multifactorial including patient being high and alcohol and urine drug screen positive for amphetamine, methamphetamine and marijuana -Acute alcohol intoxication -Possible early alcohol withdrawal syndrome -Chronic fibromyalgia -Chronic Crohn's disease Plan: Start the patient on Valium 10 mg every 8 hours, we'll also add beta blockers to cut back on the sympathetic drive. Patient does have a sitter. Care was discussed with the patient follow closely Past Medical History Past Medical History: Fibromyalgia, Hypertension, Seizure Disorder Additional Past Medical History / Comment(s): lupus, crohn's History of Any Multi-Drug Resistant Organisms: None Reported Past Surgical History: No Surgical Hx Reported, Orthopedic Surgery Additional Past Surgical History / Comment(s): R hand Past Psychological History: Anxiety Smoking Status: Current every day smoker Past Alcohol Use History: Abuse Past Drug Use History: None Reported Medications and Allergies Home Medications Medication Instructions Recorded Confirmed Type Divalproex [Depakote] 500 mg PO DAILY #30 tablet. 02/28/19 06/02/19 Rx Lisinopril 40 mg PO DAILY #30 tablet 02/28/19 06/02/19 Rx levETIRAcetam [Keppra] 1,000 mg PO Q12HR #30 tablet 02/28/19 06/02/19 Rx Allergies Allergy/AdvReac Type Severity Reaction Status Date / Time codeine Allergy Unknown Verified 06/02/19 15:47 diphenhydramine Allergy Unknown Verified 06/02/19 15:47 [From Benadryl] ketorolac tromethamine Allergy Itching Verified 06/02/19 15:47 [From Toradol] Physical Exam Vitals: Vital Signs Temp Pulse Pulse Resp BP BP Pulse Ox 06/02/19 19:20 98.1 F 118 H 18 145/97 96 06/02/19 17:58 98.5 F 130 H 16 161/97 99 06/02/19 17:57 98.2 F 98 15 150/82 98 06/02/19 17:00 98.1 F 96 15 158/86 06/02/19 16:00 100 13 160/87 06/02/19 15:00 98 14 148/86 06/02/19 14:00 98.2 F 101 H 13 155/89 06/02/19 12:44 98.1 F 131 H 18 166/99 95 Intake and Output 06/02/19 06/02/19 06/02/19 06:59 14:59 22:59 Other: Weight 72.575 kg Results CBC & Chem 7: 06/02/19 13:16 06/02/19 13:16 Labs: Abnormal Lab Results - Last 24 Hours (Table) 06/02/19 06/02/19 06/02/19 Range/Units 13:16 13:16 13:16 WBC 10.7 H (3.8-10.6) k/uL APTT (22.0-30.0) sec Carbon Dioxide 21 L (22-30) mmol/L BUN 21 H (9-20) mg/dL Glucose 114 H (74-99) mg/dL Plasma Lactic Acid Neil 6.7 H* (0.7-2.0) mmol/L AST 66 H (17-59) U/L ALT 83 H (21-72) U/L Total Protein 8.7 H (6.3-8.2) g/dL Albumin 5.3 H (3.5-5.0) g/dL Urine Protein (Negative) Urine Ketones (Negative) Urine Blood (Negative) Hyaline Casts (0-2) /lpf Urine Mucus (None) /hpf Ur Amphetamines Screen (NotDetected) U Methamphetamines Scrn (NotDetected) U Marijuana (THC) Screen (NotDetected) Serum Alcohol 416 H* mg/dL 06/02/19 06/02/19 06/02/19 Range/Units 13:16 16:00 17:00 WBC (3.8-10.6) k/uL APTT 21.8 L (22.0-30.0) sec Carbon Dioxide (22-30) mmol/L BUN (9-20) mg/dL Glucose (74-99) mg/dL Plasma Lactic Acid Neil 6.5 H* (0.7-2.0) mmol/L AST (17-59) U/L ALT (21-72) U/L Total Protein (6.3-8.2) g/dL Albumin (3.5-5.0) g/dL Urine Protein 3+ H (Negative) Urine Ketones 2+ H (Negative) Urine Blood Small H (Negative) Hyaline Casts 18 H (0-2) /lpf Urine Mucus Few H (None) /hpf Ur Amphetamines Screen Detected H (NotDetected) U Methamphetamines Scrn Detected H (NotDetected) U Marijuana (THC) Screen Detected H (NotDetected) Serum Alcohol mg/dL 06/02/19 Range/Units 21:12 WBC (3.8-10.6) k/uL APTT (22.0-30.0) sec Carbon Dioxide (22-30) mmol/L BUN (9-20) mg/dL Glucose (74-99) mg/dL Plasma Lactic Acid Neil 7.8 H* (0.7-2.0) mmol/L AST (17-59) U/L ALT (21-72) U/L Total Protein (6.3-8.2) g/dL Albumin (3.5-5.0) g/dL Urine Protein (Negative) Urine Ketones (Negative) Urine Blood (Negative) Hyaline Casts (0-2) /lpf Urine Mucus (None) /hpf Ur Amphetamines Screen (NotDetected) U Methamphetamines Scrn (NotDetected) U Marijuana (THC) Screen (NotDetected) Serum Alcohol mg/dL Thrombosis Risk Factor Assmnt - Choose All That Apply Any of the Below Risk Factors Present?: No
[2019-06-02] MEDS: METOPROLOL TARTRATE 25 MG TAB PO SCH (23:38)
[2019-06-02] MEDS: DIAZEPAM 5 MG TAB PO SCH (23:38)
[2019-06-03] MEDS: LORazepam 2 MG/ML INJ IV PRN ×9 (00:17→20:40)
[2019-06-03] MEDS: THIAMINE 100 MG TAB PO SCH ×2 (07:15→17:11)
[2019-06-03] MEDS: DIAZEPAM 5 MG TAB PO SCH ×2 (07:15→17:11)
[2019-06-03] MEDS: METOPROLOL TARTRATE 25 MG TAB PO SCH ×3 (07:22→21:59)
[2019-06-03] MEDS: NICOTINE 21MG/24HR PATCH TRANSDERM SCH ×2 (12:25→17:13)
--- NOTE | 2019-06-03 15:00 | P.PN ---
Progress Note - Text Progress Note Date: 06/03/19 Chief Complaint: r Hurting all over Interval history: This is a 39-year-old patient of Dr. Hanson. Chronic stable medical conditions include chronic fibromyalgia, hypertension, seizures, and lupus, Crohn's disease. Normally has a few bowel movements a day off and I did mucus. In the past used to pass blood. For 3 days patient drinking rather a significant amount of alcohol. She's been doing this to cut back on his pain. He is having pain in his legs feet all over the body. His brother decided to send abdomen. Patient not been working. Patient states she does not drink alcohol or regular basis. r does smoke. Currently not employed. Admitted with acute delirium, alcohol withdrawal, acute alcohol intoxication. Today-laying in bed. On Valium and beta miracle. Did tolerate some diet. Review of systems: Was done for constitutional, cardiovascular, GI, pulmonary. relevant finding as above Active Medications Diazepam (Valium) 10 mg PO Q6HR [facility] Levetiracetam (Keppra) 1,000 mg PO Q12HR [facility] Lisinopril (Zestril) 40 mg PO DAILY [facility] Lorazepam (Ativan) 1 mg IV Q2HR PRN PRN Reason: CIWA 8 or 9 Last Admin: 06/02/19 22:32 Dose: 1 mg Documented by: Lorazepam (Ativan) 1 mg IV Q1HR PRN PRN Reason: CIWA 10 to 15 Last Admin: 06/03/19 14:39 Dose: 1 mg Documented by: Metoprolol Tartrate (Lopressor) 25 mg PO TID [facility] Last Admin: 06/03/19 07:22 Dose: 25 mg Documented by: Nicotine (Habitrol 21mg/24hr Patch) 1 patch TRANSDERM DAILY [facility] Last Admin: 06/03/19 12:25 Dose: 1 patch Documented by: Ondansetron HCl (Zofran) 4 mg IVP Q8HR PRN PRN Reason: Nausea And Vomiting Thiamine HCl (Vitamin B-1) 100 mg PO BID-W/MEALS [facility] Last Admin: 06/03/19 07:15 Dose: 100 mg Documented by: Physical examination: VITAL SIGNS: 99.1, 98, 16, 149/83, 99% room air GENERAL: Laying in bed, anxious. EYES: Pupils equal. Conjunctiva normal. HEENT: External appearance of nose and ears normal, oral cavity grossly normal. NECK: JVD not raised; masses not palpable. HEART: First and second heart sounds are normal; no edema. LUNGS: Respiratory rate normal; clear to auscultation. ABDOMEN: Soft, nontender, liver spleen not palpable, no masses palpable. PSYCH: Alert and oriented x3; mood and affect anxious, restlessl. NEUROLOGICAL: Cranial nerves grossly intact; no facial asymmetry, power and sensation grossly intact. LYMPHATICS: No lymph nodes palpable in the axilla and neck INVESTIGATIONS, reviewed in the clinical context: Lactic acid 1.3 Admission labs White count 10.7 hemoglobin 14 platelets 370 potassium 4.0 creatinine 0.69 Plasma lactic acid 6.7, repeat 6.5 AST 66 ALt 83 Serum alcohol 416 Urine drug screen positive for amphetamine, methamphetamine, marijuana Assessment: -Acute delirium multifactorial including patient being high and alcohol and urine drug screen positive for amphetamine, methamphetamine and marijuana -Acute alcohol intoxication -early alcohol withdrawal syndrome -Chronic fibromyalgia -Chronic Crohn's disease -Lactic acidosis type II on presentation from alcohol Plan: Still somewhat restless. Dose of Valium increased to 10 mg every 6. Other medications to continue. Care was discussed with the patient.
[2019-06-03] MEDS: ENOXAPARIN 40 MG/0.4 ML SYRINGE SQ SCH (15:19)
[2019-06-03] MEDS: levETIRAcetam 500 MG TAB PO SCH (20:40)
[2019-06-04] MEDS: DIAZEPAM 5 MG TAB PO SCH ×3 (00:09→12:16)
[2019-06-04 01:36] VITALS: RESP 16
[2019-06-04] MEDS: METOPROLOL TARTRATE 25 MG TAB PO SCH (07:50)
[2019-06-04] MEDS: levETIRAcetam 500 MG TAB PO SCH (07:50)
[2019-06-04] MEDS: NICOTINE 21MG/24HR PATCH TRANSDERM SCH (07:51)
[2019-06-04] MEDS: ENOXAPARIN 40 MG/0.4 ML SYRINGE SQ SCH (07:51)
[2019-06-04] MEDS: THIAMINE 100 MG TAB PO SCH (07:51)
[2019-06-04 07:55] VITALS: BP 142/107; PULSE 93; TEMP 98.6
[2019-06-04] MEDS ORDERED: DIVALPROEX 500 MG TABLET.DR PO SCH (09:00)
[2019-06-04] MEDS ORDERED: LISINOPRIL 20 MG TAB PO SCH (09:00)
[2019-06-04] MEDS ORDERED: DIAZEPAM 5 MG TAB PO SCH (16:00)
--- NOTE | 2019-06-05 23:50 | P.DS ---
Providers Date of admission: 06/02/19 16:48 Expected date of discharge: 06/04/19 Attending physician: Gino Carmen Primary care physician[facility] Course: Hospital course: This is a 39-year-old patient of Dr. Hanson. Chronic stable medical conditions include chronic fibromyalgia, hypertension, seizures, and lupus, Crohn's disease. Normally has a few bowel movements a day off and I did mucus. In the past used to pass blood. For 3 days patient drinking rather a significant amount of alcohol. She's been doing this to cut back on his pain. He is having pain in his legs feet all over the body. His brother decided to send abdomen. Patient not been working. Patient states she does not drink alcohol or regular basis. r does smoke. Currently not employed. Patient admitted with a diagnosis of acute delirium, acute alcohol intoxication, acute alcohol withdrawal. Patient is put on Valium beta blockers. To which she started responding. Patient decided to leave AGAINST MEDICAL ADVICE. Earlier in the day as spoken at length with the patient. Told him I like to to cut back on his Valium and tapered down other medications. Spoke at length with him. But later decided to leave AMA Physical examination: VITAL SIGNS: 98.6, 93, 16, 1 42 x 1 07 GENERAL: Sitting up in the bed, less restless. EYES: Pupils equal. Conjunctiva normal. HEENT: External appearance of nose and ears normal, oral cavity grossly normal. NECK: JVD not raised; masses not palpable. HEART: First and second heart sounds are normal; no edema. LUNGS: Respiratory rate normal; clear to auscultation. ABDOMEN: Soft, nontender, liver spleen not palpable, no masses palpable. PSYCH: Alert and oriented x3; mood and affect anxious, slightly restlessl. INVESTIGATIONS, reviewed in the clinical context: White count 10.7 hemoglobin 14 platelets 370 potassium 4.0 creatinine 0.69 Plasma lactic acid 6.7, repeat 6.5 AST 66 ALt 83 Serum alcohol 416 Urine drug screen positive for amphetamine, methamphetamine, marijuana Assessment: -Acute delirium multifactorial including patient being high and alcohol and urine drug screen positive for amphetamine, methamphetamine and marijuana -Acute alcohol intoxication -Possible early alcohol withdrawal syndrome -Chronic fibromyalgia -Chronic Crohn's disease Disposition: Patient left AMA Patient Condition at Discharge: Undetermined Plan - Discharge Summary Discharge Rx Participant: No New Discharge Prescriptions: No Action levETIRAcetam [Keppra] 1,000 mg PO Q12HR #30 tablet Lisinopril 40 mg PO DAILY #30 tablet Discharge Medication List Lisinopril 40 mg PO DAILY #30 tablet 02/28/19 [Rx] levETIRAcetam [Keppra] 1,000 mg PO Q12HR #30 tablet 02/28/19 [Rx] Follow up Appointment(s)/Referral(s): Luigi David MD [Primary Care Provider] - 1-2 days Discharge Disposition: Left Against Medical Advice
--- NOTE | 2019-06-06 10:02 | CDI ---
Documentation Clarification Form Date: 06/06/19 From: Cheryle Núñez Phone: If you have a question regarding this query, please contact Tg Mcdonald at [phone] between 8am and 5pm. Admit Date: 06/02/2019 4:48:00 PM Patient Name: Matthias Noe Visit Number: [id number] Discharge Date: 06/04/2019 1:15:00 PM ATTENTION: The Clinical Documentation Specialists (CDI) and [facility] Coding Staff appreciate your assistance in clarifying documentation. Please respond to the clarification below the line at the bottom and electronically sign. The CDI & [facility] Coding staff will review the response and follow-up if needed. Please note: Queries are made part of the Legal Health Record. If you have any questions, please contact the author of this message via ITS. Dr. Gino Carmen Alcohol intoxication and possible early alcohol withdrawal syndrome is documented in the discharge summary and progress note. History/Risk Factors: Documentation in the the ED note and H&P states past alcohol use and abuse. Documentation states that the patient states he does note drink alcohol on a regular basis. Clinical Indicators: Acute delirium Labs: Serum alcohol 416 Treatment: CIWA protocol, 1.5 L fluid bolus then at 110 mls/hr In your professional opinion, can you please clarify if the above clinical indicators and treatment signify any of the following? Alcohol dependence Alcohol abuse Alcohol use Other, please specify Unable to determine MTDD
== END 2019-06-04 13:15 | disposition left against medical advice (07) | DRG 894 ==
LOC: EC 12:24 → 4SSUR 16:48
PROVIDERS: ADMIT Hospitalist; ATTEND Hospitalist
DX: F10.121 Alcohol abuse with intoxication delirium (principal); E87.2 Acidosis; K50.90 Crohn's disease, unspecified, without complications; E88.89 Other specified metabolic disorders; F15.90 Other stimulant use, unspecified, uncomplicated; F12.90 Cannabis use, unspecified, uncomplicated; E86.0 Dehydration; F17.210 Nicotine dependence, cigarettes, uncomplicated; F41.9 Anxiety disorder, unspecified; G40.909 Epilepsy, unspecified, not intractable, without status epilepticus; G89.29 Other chronic pain; I10 Essential (primary) hypertension; M79.7 Fibromyalgia; Z79.899 Other long term (current) drug therapy; Z88.5 Allergy status to narcotic agent; Z88.8 Allergy status to other drugs, medicaments and biological substances; Z86.14 Personal history of Methicillin resistant Staphylococcus aureus infection
CPT/HCPCS: 36415; 71046; 80053; 80306; 80320; 81001; 82550; 83605; 83735; 84100; 84484; 85025; 85610; 85730; 93005; 96361; 96365; 96366; 96372; 96374; 96376; 99285

== ENCOUNTER 2021-05-29 16:41 | Emergency (ER) | payer OTHER ==
[2021-05-29 16:48] VITALS: TEMP 97.8
[2021-05-29] MEDS ORDERED: LORazepam 2 MG/ML INJ IV STA (17:21)
[2021-05-29] MEDS ORDERED: SODIUM CHLORIDE 0.9% 1,000 ML IV STA (17:21)
[2021-05-29 17:44] LABS: Basophils % (A) 0 %; Eosinophils # (A) 0.1 k/uL (0-0.7); Eosinophils % (A) 1 %; HCT 35.4 % (39.0-53.0); HGB 12.5 gm/dL (13.0-17.5); Lymphocytes # (A) 1.8 k/uL (1.0-4.8); Lymphocytes % (A) 19 %; MCH 32.8 pg (25.0-35.0); MCHC 35.2 g/dL (31.0-37.0); MCV 93.3 fL (80.0-100.0); Mean Platelet Volume 9.3; Monocytes # (A) 0.4 k/uL (0-1.0); Monocytes % (A) 5 %; Neutrophils % (A) 74 %; Platelet Count 161 k/uL (150-450); RBC 3.79 m/uL (4.30-5.90); RDW 12.4 % (11.5-15.5); WBC 9.5 k/uL (3.8-10.6)
[2021-05-29 18:05] LABS: ALT 19 U/L (4-49); AST 35 U/L (17-59); African American GFR (CKD) >90 (>60 ml/min/1.73 sqM); Albumin 3.6 g/dL (3.5-5.0); Alcohol <10 mg/dL; Alkaline Phosphatase 50 U/L (38-126); Anion Gap 9 mmol/L; Blood Urea Nitrogen 15 mg/dL (9-20); Calcium 8.7 mg/dL (8.4-10.2); Carbon Dioxide 23 mmol/L (22-30); Chloride 103 mmol/L (98-107); Glucose 82 mg/dL (74-99); Lipase 280 U/L (23-300); Magnesium 1.9 mg/dL (1.6-2.3); Non-African American GFR(CKD) >90 (>60 ml/min/1.73 sqM); Potassium 3.1 mmol/L (3.5-5.1); Sodium 135 mmol/L (137-145); Total Bilirubin 0.9 mg/dL (0.2-1.3); Total Protein 6.1 g/dL (6.3-8.2)
--- NOTE | 2021-05-29 18:23 | XR ---
EXAMINATION TYPE: XR chest 1V portable DATE OF EXAM: 05/29/2021 COMPARISON: 06/02/2019. HISTORY: Cough TECHNIQUE: Single frontal view of the chest is obtained. FINDINGS: There is no focal air space opacity, pleural effusion, or pneumothorax seen. The cardiac silhouette size is within normal limits. The osseous structures are intact. IMPRESSION: No acute process.
[2021-05-29] MEDS ORDERED: POTASSIUM CHLORIDE ER 20 MEQ TAB.ER PO STA (19:21)
[2021-05-29] MEDS ORDERED: HYDROmorphone 1 MG/ML 1 ML SYRINGE IVP STA (19:21)
--- NOTE | 2021-05-29 19:22 | ED ---
Alcohol HPI - General Chief Complaint: Alcohol Stated Complaint: ETOH Withdrawal Time Seen by Provider: 05/29/21 16:50 Source: patient Mode of arrival: ambulatory Limitations: no limitations - History of Present Illness Initial Comments: Patient presents to the emerge department with complaint of alcohol related symptoms. He is concern for some withdrawal symptoms. He has no chest pain. He has no back pain. He has no headache. He has no lightheadedness or dizziness. He does have chronic abdominal pain secondary to Crohn's disease. He is not complaining of blood in the stool or black or tarry stool. He has no dysuria. He is not any regular medication for Crohn's. He denies sick contacts or recent travel. - Related Data Previous Rx's Medication Instructions Recorded chlordiazePOXIDE HCl 25 mg PO QID PRN 3 Days #12 cap 05/29/21 [chlordiazePOXIDE HCL] Allergies Allergy/AdvReac Type Severity Reaction Status Date / Time codeine Allergy Unknown Verified 05/29/21 17:57 diphenhydramine Allergy Unknown Verified 05/29/21 17:57 [From Benadryl] ketorolac tromethamine Allergy Itching Verified 05/29/21 17:57 [From Toradol] Review of Systems ROS Statement: Those systems with pertinent positive or pertinent negative responses have been documented in the HPI. ROS Other: All systems not noted in ROS Statement are negative. Past Medical History Past Medical History: Fibromyalgia, Hypertension, Seizure Disorder Additional Past Medical History / Comment(s): lupus, crohn's History of Any Multi-Drug Resistant Organisms: None Reported Past Surgical History: No Surgical Hx Reported, Orthopedic Surgery Additional Past Surgical History / Comment(s): R hand Past Psychological History: Anxiety Smoking Status: Current some day smoker Past Alcohol Use History: Abuse, Daily, Heavy Past Drug Use History: None Reported General Exam Limitations: no limitations General appearance: alert, in no apparent distress Head exam: Present: atraumatic, normocephalic, normal inspection Eye exam: Present: normal appearance, PERRL, EOMI. Absent: scleral icterus, conjunctival injection, periorbital swelling ENT exam: Present: normal exam, mucous membranes moist Neck exam: Present: normal inspection. Absent: tenderness, meningismus, lymphadenopathy Respiratory exam: Present: normal lung sounds bilaterally. Absent: respiratory distress, wheezes, rales, rhonchi, stridor Cardiovascular Exam: Present: regular rate, normal rhythm, normal heart sounds. Absent: systolic murmur, diastolic murmur, rubs, gallop, clicks GI/Abdominal exam: Present: soft, normal bowel sounds. Absent: distended, tenderness, guarding, rebound, rigid Extremities exam: Present: normal inspection, full ROM, normal capillary refill. Absent: tenderness, pedal edema, joint swelling, calf tenderness Back exam: Present: normal inspection Neurological exam: Present: alert, oriented X3, CN II-XII intact Psychiatric exam: Present: normal affect, normal mood Skin exam: Present: warm, dry, intact, normal color. Absent: rash Course Vital Signs 05/29/21 16:43 Temperature 97.8 F Pulse Rate 106 H Respiratory 17 Rate Blood Pressure 160/95 O2 Sat by Pulse 98 Oximetry Medical Decision Making - Medical Decision Making Patient is feeling better. I can find no evidence of an emergency. He has only very mild withdrawal symptoms and is appropriate for outpatient follow-up. - Lab Data Result diagrams: 05/29/21 17:37 05/29/21 17:37 Lab Results 05/29/21 05/29/21 Range/Units 17:37 17:37 WBC 9.5 (3.8-10.6) k/uL RBC 3.79 L (4.30-5.90) m/uL Hgb 12.5 L (13.0-17.5) gm/dL Hct 35.4 L (39.0-53.0) % MCV 93.3 (80.0-100.0) fL MCH 32.8 (25.0-35.0) pg MCHC 35.2 (31.0-37.0) g/dL RDW 12.4 (11.5-15.5) % Plt Count 161 (150-450) k/uL MPV 9.3 Neutrophils % 74 % Lymphocytes % 19 % Monocytes % 5 % Eosinophils % 1 % Basophils % 0 % Neutrophils # 7.0 (1.3-7.7) k/uL Lymphocytes # 1.8 (1.0-4.8) k/uL Monocytes # 0.4 (0-1.0) k/uL Eosinophils # 0.1 (0-0.7) k/uL Basophils # 0.0 (0-0.2) k/uL Sodium 135 L (137-145) mmol/L Potassium 3.1 L (3.5-5.1) mmol/L Chloride 103 (98-107) mmol/L Carbon Dioxide 23 (22-30) mmol/L Anion Gap 9 mmol/L BUN 15 (9-20) mg/dL Creatinine 0.62 L (0.66-1.25) mg/dL Est GFR (CKD-EPI)AfAm >90 (>60 ml/min/1.73 sqM) Est GFR (CKD-EPI)NonAf >90 (>60 ml/min/1.73 sqM) Glucose 82 (74-99) mg/dL Calcium 8.7 (8.4-10.2) mg/dL Magnesium 1.9 (1.6-2.3) mg/dL Total Bilirubin 0.9 (0.2-1.3) mg/dL AST 35 (17-59) U/L ALT 19 (4-49) U/L Alkaline Phosphatase 50 (38-126) U/L Total Protein 6.1 L (6.3-8.2) g/dL Albumin 3.6 (3.5-5.0) g/dL Lipase 280 (23-300) U/L Serum Alcohol <10 mg/dL Disposition Clinical Impression: Alcohol withdrawal syndrome Disposition: HOME SELF-CARE Condition: Good Instructions (If sedation given, give patient instructions): Alcohol Withdrawal (ED) Prescriptions: chlordiazePOXIDE HCl [chlordiazePOXIDE HCL] 25 mg PO QID PRN 3 Days #12 cap PRN Reason: Agitation Or Acute Anxiety Is patient prescribed a controlled substance at d/c from ED?: No Referrals: None,Stated [Primary Care Provider] - 1-2 days
[2021-05-29 19:46] VITALS: PULSE 79; RESP 16
[2021-05-29 19:47] VITALS: BP 148/96
[2021-05-29] MEDS ORDERED: ACET/COD 300 MG/30 MG STARTER PACK 6 TAB BTL PO STA (20:16)
[2021-05-29] MEDS ORDERED: traMADol 50 MG STARTER PACK 3 TAB BTL PO STA (20:24)
== END 2021-05-29 20:27 | disposition home or self-care (01) ==
LOC: EC 16:41
DX: F10.239 Alcohol dependence with withdrawal, unspecified (principal); F17.200 Nicotine dependence, unspecified, uncomplicated; I10 Essential (primary) hypertension; Z88.8 Allergy status to other drugs, medicaments and biological substances; Z88.5 Allergy status to narcotic agent; Z88.6 Allergy status to analgesic agent
CPT/HCPCS: 36415; 80053; 83690; 83735; 85025; 71045; 99285; 96374; 96375; 96361; G0480; J2060; J1170; 80320